=== PATIENT | male | born 1950 | race Caucasian/White ===

== ENCOUNTER 2018-08-10 14:11 | Inpatient (IN) | payer OTHER, SELFPAY ==
[2018-08-10] VITALS (15 sets, daily range): BP systolic 142–167; BP diastolic 60–125; PULSE 115–121; RESP 14–22; TEMP 37.2–37.7; O2SAT 88–99; BMI 26.4
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
[2018-08-10 14:20] LABS: Add Manual Diff / Slide Review NO; Basophils Absolute Auto 0 /uL (0-100); Basophils Percent Auto 0.4 % (0-2); Eosinophils Absolute Auto 0 /uL (0-450); Hematocrit 45.2 % (41-53); Hemoglobin 15.2 g/dL (13.5-17.5); Lymphocytes Absolute Auto 1800 /uL (1100-4500); Lymphocytes Percent Auto 14.9 % (25-40); Mean Corpuscular HGB Conc 33.5 % (30-36); Mean Corpuscular Volume 95.4 fL (80-100); Monocytes Absolute Auto 1200 /uL (0-900); Monocytes Percent Auto 9.9 % (3-14); Neutrophils Absolute Auto 9200 /uL (1500-7000); Neutrophils Percent Auto 74.8 % (50-75); Platelet Count 247 X10^3/uL (150-400); Red Blood Cell Count 4.74 X10^6/uL (4.5-5.9); Red Cell Distribution Width 14.3 % (11.6-14.8); White Blood Cell Count 12.3 X10^3/uL (4.5-11.0)
--- NOTE | 2018-08-10 14:20 | DI.CT.S_ITS ---
PROCEDURE: CT HEAD/BRAIN WO CON INDICATIONS: altered mental status, found in chair TECHNIQUE: Noncontrast 4.5 mm thick angled axial sections acquired from the foramen magnum to the vertex, with coronal and sagittal reformats. For radiation dose reduction, the following was used: automated exposure control, adjustment of mA and/or kV according to patient size. COMPARISON: None. FINDINGS: Image quality: Partially degraded by motion artifact. CSF spaces: Basal cisterns are patent. No extra-axial fluid collections. The ventricles are symmetric in size and shape. Brain: No intracranial bleeds or masses. There is cerebral volume loss for age, with resultant ventricular and sulcal prominence. There are periventricular and deep white matter chronic small vessel ischemic changes. There is intracranial internal carotid artery atherosclerosis. Skull and face: Calvarium and visualized facial bones appear intact, without suspicious lesions. Limited evaluation of the right mandibular condyle secondary to motion artifact. Sinuses: Visualized sinuses and mastoids are clear. IMPRESSION: No acute intracranial abnormality. Dictated by: Jeri Appiah M.D. on 08/10/2018 at 14:21 Approved by: Jeri Appiah M.D. on 08/10/2018 at 14:23
--- NOTE | 2018-08-10 14:20 | DI.RAD.S_ITS ---
PROCEDURE: XR CHEST 1V INDICATIONS: altered mental status TECHNIQUE: One view of the chest was acquired. COMPARISON: None. FINDINGS: Surgical changes and devices: Status post right shoulder arthroplasty. Lungs and pleura: Minimal patchy right basilar opacities and likely right lower lung zone subsegmental atelectasis versus scarring. No focal consolidation. No pleural effusion or pneumothorax identified. Mediastinum: Mediastinal contours appear normal. Heart size is normal. Bones and chest wall: No suspicious bony lesions. Overlying soft tissues appear unremarkable. IMPRESSION: Minimal patchy right basilar opacities likely representing atelectasis. Early developing airspace disease/aspiration may have a similar appearance. Dictated by: Castillo Jo M.D. on 08/10/2018 at 14:39 Approved by: Castillo Jo M.D. on 08/10/2018 at 14:43
[2018-08-10 14:27] LABS: INR 1.1 (0.9-1.3); Prothrombin Time 12.2 SECONDS (10.1-12.7)
[2018-08-10 14:30] LABS: PTT Partial Thromboplastin Tim 29 SECONDS (26.4-36.2)
[2018-08-10 14:31] LABS: Alanine Aminotransferase 8 IU/L (21-72); Albumin 4.8 g/dL (3.5-5.0); Albumin Globulin Ratio 1.3 (1.0-2.8); Alkaline Phosphatase 95 U/L (38-126); Aspartate Aminotransferase 30 IU/L (17-59); BUN Creatinine Ratio 36.3 (6-22); Bilirubin Total 0.8 mg/dL (0.2-1.3); Blood Urea Nitrogen 29 mg/dL (9-20); Calcium 10.4 mg/dL (8.4-10.2); Carbon Dioxide 25 mmol/L (22-32); Chloride 98 mmol/L (98-107); Estimated Glomerular Filt Rate > 60.0 mL/min (>60); Globulin 3.8 g/dL (1.7-4.1); Glucose 207 mg/dL (80-110); HEMOLYSIS 16 (0-50); Potassium 4.4 mmol/L (3.4-5.1); Sodium 137 mmol/L (137-145); Total Protein 8.6 g/dL (6.3-8.2)
[2018-08-10 14:36] LABS: Urine Amphetamines Negative (Negative); Urine Barbiturates Negative (Negative); Urine Benzodiazepines Negative (Negative); Urine Cocaine Negative (Negative); Urine MDMA Negative (Negative); Urine Methadone Negative (Negative); Urine Methamphetamines Negative (Negative); Urine Morphine/Opi cutoff 2000 Negative (Negative); Urine Oxycodone Negative (Negative); Urine Phencyclidine Negative (Negative); Urine Tetrahydrocannabinol Positive (Negative); Urine Tricyclic Antidepressant Negative (Negative)
[2018-08-10 14:43] LABS: Troponin I < 0.012 ng/mL (0.01-0.034)
[2018-08-10 14:45] LABS: Bacteria Urine None Seen; RBC Urine None Seen (0-5/HPF); WBC Urine None Seen (0-5/HPF)
[2018-08-10 14:47] LABS: Appearance Urine UA SL CLOUDY; Bilirubin Urine UA NEGATIVE (NEGATIVE); Color Urine UA YELLOW; Glucose Urine UA NEGATIVE (Negative); Ketones Urine UA NEGATIVE (NEGATIVE); Leukocyte Esterase Urine UA NEGATIVE (NEGATIVE); Nitrite Urine UA NEGATIVE (Negative); Occult Blood Urine UA TRACE-LYSED (Negative); Protein Urine UA TRACE (Negative); Specific Gravity Urine UA 1.025 (1.000-1.035); Urobilinogen Urine UA 0.2 E.U./dL (0.2)
[2018-08-10 14:56] LABS: Acetaminophen < 10 ug/mL (10-30); Salicylate < 1.0 mg/dL (<20)
[2018-08-10 14:56] LABS: Culture Indicated Urine Cult Not Indicated; Urine Comments Microscopic Normal
[2018-08-10] MEDS: SODIUM CHLORIDE 0.9% 1,000 ML 150 ML IV ×2 (14:58→19:36)
[2018-08-10 15:19] LABS: Ethanol (ETOH) < 10 mg/dL
[2018-08-10 15:54] LABS: Lactate (Lactic Acid) 1.3 mmol/L (0.7-2.1)
--- NOTE | 2018-08-10 16:00 | PC.NURSE ---
On arrival pt nonverbal but yells with movement. Pt also noted to have bilateral foot drop.
[2018-08-10 16:10] LABS: Creatine Kinase 349 U/L (55-170)
--- NOTE | 2018-08-10 16:13 | PC.NURSE ---
SI assesment done since pt is now verbal. Pt stated yes to thoughts of harming yourself or others when clarifying, pt stated that he did have thoughts of harming himself when this occurred but he does not now have those thoughts.
[2018-08-10 16:25] LABS: CKMB % Relative Index 0.5 % (1.5-5.0); Creatine Kinase MB 1.61 ng/mL (<2.37)
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
--- NOTE | 2018-08-10 17:18 | DI.US.S_ITS ---
PROCEDURE: US PERIPH VENOUS UP EXTREM FLOR INDICATIONS: QUESTION DEEP VEIN THROMBOSIS, SITTING IN CHAIR X SEVERAL DA TECHNIQUE: Real-time imaging, as well as color and pulse Doppler interrogation, was performed of both upper extremity deep veins from the inferior neck to the antecubital fossa. COMPARISON: None. FINDINGS: Right: The internal jugular veins, visualized portions of the subclavian veins, axillary veins, and brachial veins are free of intraluminal thrombus. Where physically possible, the veins are normally compressible. Color and pulse Doppler demonstrate normal intraluminal flow, with expected phasicity and pulsatility. Additional scanning of the cephalic and basilic veins of the superficial system demonstrate normal compressibility, without thrombus. Left: The internal jugular veins, visualized portions of the subclavian veins, axillary veins, and brachial veins are free of intraluminal thrombus. Where physically possible, the veins are normally compressible. Color and pulse Doppler demonstrate normal intraluminal flow, with expected phasicity and pulsatility. There are eccentric filling defects compatible with nonocclusive thrombus, likely chronic, involving the superficial vessels in the left antecubital region. IMPRESSION: 1. Nonocclusive eccentric filling defects likely representing chronic thrombus within superficial veins in the left antecubital region compatible with superficial thrombophlebitis. 2. No definite evidence of deep venous thrombosis in the right or left upper extremity. Dictated by: Bronson Chatman M.D. on 08/10/2018 at 19:26 Approved by: Bronson Chatman M.D. on 08/10/2018 at 19:29
[2018-08-10] MEDS: CLINDAMYCIN 600 MG/50 ML PIGGYBACK 50 MG IV (17:23)
--- NOTE | 2018-08-10 18:54 | DI.US.S_ITS ---
PROCEDURE: US PERIPH VENOUS LOW EXTREM BI INDICATIONS: DEEP VEIN THROMBOSIS TECHNIQUE: Real-time imaging, as well as color and pulse Doppler interrogation, were performed of the deep veins of both legs from the inguinal ligament to the popliteal fossa. COMPARISON: None. FINDINGS: Right: The common femoral, femoral and popliteal veins are normally compressible, and free of intraluminal thrombus. Color and pulse Doppler demonstrate normal phasic intravascular flow. There is normal augmentation response to distal compression maneuver. Left: The common femoral, femoral and popliteal veins are normally compressible, and free of intraluminal thrombus. Color and pulse Doppler demonstrate normal phasic intravascular flow. There is normal augmentation response to distal compression maneuver. IMPRESSION: 1. No evidence of deep venous thrombosis in the right or left lower extremity. Dictated by: Bronson Chatman M.D. on 08/10/2018 at 20:26 Approved by: Bronson Chatman M.D. on 08/10/2018 at 20:27
[2018-08-10] MEDS: ENOXAPARIN 100 MG/ML SYRINGE 85 MG SUBCUT (19:36)
[2018-08-10 20:29] LABS: Magnesium 1.8 mg/dL (1.6-2.3)
--- NOTE | 2018-08-10 20:30 | PM.HP.1 ---
History of Present Illness Date Patient Seen: 08/10/18 Time Patient Seen: 19:41 Chief complaint: decreased LOC Narrative: Mr. Teddy Rico is a 68-year-old male with history significant for hypertension, hyperlipidemia, diabetes, prostate cancer, spinal stenosis with neuropathy, asthma, long-term opiate use and prior suicide attempt who presents to the ER via EMS with altered mental status. The patient was found seated in a chair altered after not being seen or heard from for days and will defer check was requested. It was reported through the emergency department that a note was found leaving although his belongings to his ex-. During encounter the patient admits to an estimated 30 Soma and 12 buprenorphine tablets. He does admit to attempted suicide and is aware of his current surroundings though it history is stools scattered with impaired recall. The patient remains confused with difficultty recalling information or events. It is estimated that the overdose occurred 3 days ago. The patient also had sources history of alcohol approximately 1 qt per day and denies ingestion of other substances including Tylenol or aspirin. By history the patient has had a prior suicidal attempt by carbon monoxide poisoning. At present he complains of total body aches but denies headaches or dizziness and has no fevers or chills. He denies chest pain or pain on deep inspiration and no palpitations. Denies shortness of breath or cough. Has no abdominal pain nausea vomiting. Upon arrival in the ER the patient has low-grade fever 99.2, tachycardic at 1:18 a.m., hypertensive 157/87, respiratory rate of 22 with a room air SaO2 oxygen saturation of 88%. patient had a chest x-ray taken which show some right basilar patchy infiltrates consistent with atelectasis and had CT head which showed no acute intracranial processes. The patient's tox screen is only positive for cannabis. On laboratory studies has a mildly elevated white count at 12.3 with a hemoglobin of 15.2 and hematocrit of 45.2 and platelets of 247. his electrolytes are within normal limits and has a elevated BUN at 29 and a creatinine of 0.8 with a BUN creatinine ratio 36.3:1. He has a nonfasting glucose of 207. His CK is elevated at 349 and a CK-MB at 1.61. His troponin is negative at less than 0.012 and lactate is negative at 1.3. his coagulations are within normal limits. He did have ultrasound of the left upper extremity which identifies a DVT. The patient is admitted to the hospital for suicidal ideation, overdose, acute respiratory failure, DVT left arm and severe dehydration. 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 Patient does indicate that his father from stroke and he is unaware of his mother's history. He does relate that his brother had hernia surgery but knows of no other medical problems. Smoking: Patient states that he used to smoke and is not currently but can't state how many years ago he quit. Alcohol: Patient endorses he does drink a qt of alcohol daily. Substance use: Patient denies use of herbal or cannabis products however his tox screen is positive for marijuana. Advanced directives: The patient states he does not have an advanced directive. He presently remains altered and incapable of making sound decisions therefore the patient will be full code at this time until the patient becomes more lucid. He further states that there is nobody that he can designate as a surrogate decision maker. Meds Home Medications Medication Instructions Recorded Confirmed Type buprenorphine HCl 8 mg SUBLINGUAL BID 08/10/18 08/11/18 History Allergies Allergy/AdvReac Type Severity Reaction Status Date / Time No Known Drug Allergies Allergy Verified 08/10/18 18:12 Review of Systems Review of Systems All systems reviewed & are unremarkable except as noted in HPI and below (Impaired memory and recall.) Exam Vital Signs (past 8 hours): - 08/10/18 14:21 08/10/18 14:30 08/10/18 15:00 Temperature 99.2 F Pulse Rate 118 H 119 H 121 H Respiratory Rate 22 18 14 Blood Pressure 157/87 H Blood Pressure [Left Arm] 153/125 H 165/84 H Pulse Oximetry 88 L 98 98 08/10/18 15:45 08/10/18 16:00 08/10/18 16:04 Temperature 99.2 F Pulse Rate 118 H 118 H 118 H Respiratory Rate 16 17 16 Blood Pressure 157/87 H Blood Pressure [Left Arm] 160/83 H 159/60 H Pulse Oximetry 96 97 96 08/10/18 16:15 08/10/18 16:30 08/10/18 16:45 Temperature Pulse Rate 119 H 119 H 121 H Respiratory Rate 16 16 16 Blood Pressure Blood Pressure [Left Arm] 167/88 H 160/83 H Pulse Oximetry 96 95 96 08/10/18 17:00 08/10/18 17:30 08/10/18 18:32 Temperature Pulse Rate 120 H 119 H 117 H Respiratory Rate 15 16 17 Blood Pressure 148/88 H Blood Pressure [Left Arm] 160/82 H 144/81 H Pulse Oximetry 97 95 97 08/10/18 18:50 08/10/18 18:55 Temperature 99 F 99 F Pulse Rate 117 H 117 H Respiratory Rate 20 20 Blood Pressure 142/82 H 142/82 H Blood Pressure [Left Arm] Pulse Oximetry 96 99 Oxygen Delivery Method Nasal Cannula Oxygen Flow Rate 2 Narrative Exam Narrative: GENERAL APPEARANCE: well developed, well nourished, anxious HEAD: Normocephalic, atraumatic, no scalp lesions. EYES: pupils equal, round, reactive to light and accommodation, conjunctivas inflamed and sclera anicteric, extraocular movement intact without nystagmus. EARS: normal external structures, no ear pain NOSE: sinuses non tender to percussion, no rhinorrhea ORAL CAVITY: mucosa dry without lesions or exudate, palate normal, tongue in midline. THROAT: normal, no erythema, no exudate, pharynx normal, uvula midline. NECK/THYROID: neck supple, no jugular venous distention, no carotid bruit, no thyromegaly, trachea midline. LYMPH NODES: no cervical or supraclavicular lymphadenopathy. SKIN: Flushed, warm and dry, no suspicious lesions, no rashes HEART: Tachycardic rate and regular rhythm, S1-S2 without murmur, no rubs or gallops, brisk capillary refill, no edema LUNGS: Breath sounds with bibasilar fine crackles no coarseness or wheezing, no cough present. CHEST: Symmetrical movement, no accessory muscle use, no pain to AP and lateral compression. ABDOMEN: Soft, no distention, no epigastric or abdominal tenderness on palpation, no guarding or peritoneal signs, no organomegaly, no flank tenderness, active bowel tones. BACK: Normal curvature, nontender to palpation EXTREMITIES: Pain with range of motion all extremities, increased pain left axilla with distal erythema and a mild edema, no extremity deformities or joint effusions. NEUROLOGIC: AAO x4, impaired recall, impaired mental focus and concentration,, cranial nerves II-XII grossly intact , motor strength normal upper and lower extremities, numbness to the plantar surface bilateral feet, Hearing grossly normal to speech. PSYCH: alert, impaired cognition, anxious, remorseful-worried about what his father will think. Objective Labs Result Diagrams: 08/10/18 13:50 08/10/18 13:50 Labs: Laboratory Results - last 24 hr 08/10/18 08/10/18 08/10/18 13:30 13:50 13:50 WBC 12.3 H RBC 4.74 Hgb 15.2 Hct 45.2 MCV 95.4 MCH 32.0 MCHC 33.5 RDW 14.3 Plt Count 247 Neut % (Auto) 74.8 Lymph % (Auto) 14.9 L Cors[place] % (Auto) 9.9 Eos % (Auto) 0.0 L Baso % (Auto) 0.4 Neut # (Auto) 9200 H Lymph # (Auto) 1800 [place] # (Auto) 1200 H Eos # (Auto) 0 Baso # (Auto) 0 PT 12.2 INR 1.1 APTT 29 Sodium Potassium Chloride Carbon Dioxide BUN Creatinine Estimated GFR BUN/Creatinine Ratio Glucose Lactate Calcium Magnesium Total Bilirubin AST ALT Alkaline Phosphatase Total Creatine Kinase CK-MB (CK-2) CK-MB (CK-2) Rel Index Troponin I Total Protein Albumin Globulin Albumin/Globulin Ratio Urine Color Urine Appearance Urine pH Ur Specific [place] Urine Protein Urine Glucose (UA) Urine Ketones Urine Occult Blood Urine Nitrate Urine Bilirubin Urine Urobilinogen Ur Leukocyte Esterase Urine RBC Urine WBC Urine Bacteria Ur Culture Indicated? Micro UA Comment Salicylates Urine Opiates Screen Ur Oxycodone Screen Urine Methadone Screen Acetaminophen Ur Barbiturates Screen U Tricyclic Antidepress Ur Phencyclidine Scrn Ur Amphetamines Screen U Methamphetamines Scrn Ur MDMA Scrn (Ecstasy) U Benzodiazepines Scrn Urine Cocaine Screen U Marijuana (THC) Screen Ethyl Alcohol < 10 08/10/18 08/10/18 08/10/18 13:50 13:50 13:50 WBC RBC Hgb Hct MCV MCH MCHC RDW Plt Count Neut % (Auto) Lymph % (Auto) [place] % (Auto) Eos % (Auto) Baso % (Auto) Neut # (Auto) Lymph # (Auto) [place] # (Auto) Eos # (Auto) Baso # (Auto) PT INR APTT Sodium 137 Potassium 4.4 Chloride 98 Carbon Dioxide 25 BUN 29 H Creatinine 0.80 Estimated GFR > 60.0 BUN/Creatinine Ratio 36.3 H Glucose 207 H Lactate Calcium 10.4 H Magnesium Total Bilirubin 0.8 AST 30 ALT 8 L Alkaline Phosphatase 95 Total Creatine Kinase 349 H CK-MB (CK-2) 1.61 CK-MB (CK-2) Rel Index 0.5 L Troponin I < 0.012 Total Protein 8.6 H Albumin 4.8 Globulin 3.8 Albumin/Globulin Ratio 1.3 Urine Color Urine Appearance Urine pH Ur Specific [place] Urine Protein Urine Glucose (UA) Urine Ketones Urine Occult Blood Urine Nitrate Urine Bilirubin Urine Urobilinogen Ur Leukocyte Esterase Urine RBC Urine WBC Urine Bacteria Ur Culture Indicated? Micro UA Comment Salicylates < 1.0 Urine Opiates Screen Ur Oxycodone Screen Urine Methadone Screen Acetaminophen < 10 L Ur Barbiturates Screen U Tricyclic Antidepress Ur Phencyclidine Scrn Ur Amphetamines Screen U Methamphetamines Scrn Ur MDMA Scrn (Ecstasy) U Benzodiazepines Scrn Urine Cocaine Screen U Marijuana (THC) Screen Ethyl Alcohol 08/10/18 08/10/18 08/10/18 14:24 14:24 15:35 WBC RBC Hgb Hct MCV MCH MCHC RDW Plt Count Neut % (Auto) Lymph % (Auto) [place] % (Auto) Eos % (Auto) Baso % (Auto) Neut # (Auto) Lymph # (Auto) [place] # (Auto) Eos # (Auto) Baso # (Auto) PT INR APTT Sodium Potassium Chloride Carbon Dioxide BUN Creatinine Estimated GFR BUN/Creatinine Ratio Glucose Lactate 1.3 Calcium Magnesium Total Bilirubin AST ALT Alkaline Phosphatase Total Creatine Kinase CK-MB (CK-2) CK-MB (CK-2) Rel Index Troponin I Total Protein Albumin Globulin Albumin/Globulin Ratio Urine Color Yellow Urine Appearance Sl cloudy Urine pH 5.0 Ur Specific [place] 1.025 Urine Protein Trace H Urine Glucose (UA) Negative Urine Ketones Negative Urine Occult Blood Trace-lysed Urine Nitrate Negative Urine Bilirubin Negative Urine Urobilinogen 0.2 Ur Leukocyte Esterase Negative Urine RBC None seen Urine WBC None seen Urine Bacteria None seen Ur Culture Indicated? Cult not indicated Micro UA Comment Microscopic normal Salicylates Urine Opiates Screen Negative Ur Oxycodone Screen Negative Urine Methadone Screen Negative Acetaminophen Ur Barbiturates Screen Negative U Tricyclic Antidepress Negative Ur Phencyclidine Scrn Negative Ur Amphetamines Screen Negative U Methamphetamines Scrn Negative Ur MDMA Scrn (Ecstasy) Negative U Benzodiazepines Scrn Negative Urine Cocaine Screen Negative U Marijuana (THC) Screen Positive H Ethyl Alcohol 08/10/18 15:35 WBC RBC Hgb Hct MCV MCH MCHC RDW Plt Count Neut % (Auto) Lymph % (Auto) [place] % (Auto) Eos % (Auto) Baso % (Auto) Neut # (Auto) Lymph # (Auto) [place] # (Auto) Eos # (Auto) Baso # (Auto) PT INR APTT Sodium Potassium Chloride Carbon Dioxide BUN Creatinine Estimated GFR BUN/Creatinine Ratio Glucose Lactate Calcium Magnesium 1.8 Total Bilirubin AST ALT Alkaline Phosphatase Total Creatine Kinase CK-MB (CK-2) CK-MB (CK-2) Rel Index Troponin I Total Protein Albumin Globulin Albumin/Globulin Ratio Urine Color Urine Appearance Urine pH Ur Specific [place] Urine Protein Urine Glucose (UA) Urine Ketones Urine Occult Blood Urine Nitrate Urine Bilirubin Urine Urobilinogen Ur Leukocyte Esterase Urine RBC Urine WBC Urine Bacteria Ur Culture Indicated? Micro UA Comment Salicylates Urine Opiates Screen Ur Oxycodone Screen Urine Methadone Screen Acetaminophen Ur Barbiturates Screen U Tricyclic Antidepress Ur Phencyclidine Scrn Ur Amphetamines Screen U Methamphetamines Scrn Ur MDMA Scrn (Ecstasy) U Benzodiazepines Scrn Urine Cocaine Screen U Marijuana (THC) Screen Ethyl Alcohol Assessment & Plan Assessment & Plan narrative: The patient is admitted to the hospital and will be in the ICU for one-to-one observation related to attempted suicide with altered mental status and severe dehydration. 1. Attempted suicide by overdose. -patient in is seen in the ER following being found at home altered during a welfare check. Patient with previous suicidal attempt. -patient endorses taking 12 buprenophrine and 30 carisopodol but can not recall the date or how long ago he took the medication. -it is reported by ER personnel the patient left note leaving his belongings to his ex-, the note is not available for review. -it is believed that the ingestion was 3 days ago as the patient has not taken any other medications in his pill box for 3 days per police. -patient is placed on one-to-one observation -he remains cooperative and follows directions. -mental health to evaluate when medically clear. 2. Intentional medication overdose, present on admission -the patient reports overdosing on 12 of buprenorphine and 30 tablets of carisoprodol, medication bottles are not available. -patient is altered with impaired memory and appears to have been immobile for 3 days. CK is 349. -patient remains cooperative and tachycardic. Will treat symptomaticly. -mental health to evaluate a medical clear. 3. Acute, severe dehydration, present on admission. -patient appears to have been immobile in chair for 3 days, patient smells of urine, BUN creatinine ratio is 36.3:. 1 -patient has mildly elevated WBCs at 12.3 normal H&H. Sodium is 137 potassium is 4.4. BUN is 29 and creatinine is 0.8 glucose is 207. Liver functions within normal limits. -normal saline 150 cc/hour, will monitor for adequate urine output. -diabetic diet moderate carbohydrates, clear liquid. 4. Type 2 diabetes, presumed uncontrolled. -glucose is elevated 207 on initial labs. The patient reports no diabetic medications. -fingerstick glucose a.c. and HS -correctional insulin low-dose range. -will obtain hemoglobin A1c. 5. Long-term use of opiates, presumed stable. -patient with chronic back pain status post lumbar fusion of L3-4 and 5. -neuropathy bilateral feet. -the patient has been taking buprenorphine 8 mg sublingually. His last prescription provided for 60 doses for 30 day supply filled on 07/13/2018. -will hold all narcotics this time until patient's mentation clears. Will treat pain as a presents. 6. Chronic alcohol abuse, present on admission. -patient endorses drinking 1 qt of alcohol daily. -patient is placed on [facility] assessment protocol -lorazepam per [facility] protocol. 7. Acute hypoxic respiratory failure, present on arrival. -patient is tachypneic with a respiratory rate of 22 and oxygen saturation of 88% upon arrival to the ER, improved 2 L of oxygen to 98%, P/F ratio is 400. -medical record identifies a history of asthma, not specified as to severity or persistence of symptoms. -the patient has no complaints shortness of breath or wheezing, fine bibasilar crackles on auscultation, he is afebrile with minimally elevated white blood cell count at 12.3. -chest x-ray identifies right basilar patchiness consistent with atelectasis. -patient does not appear to have pneumonia, will obtain a procalcitonin and monitor white blood cell count. 8. Acute on chronic nonocclusive superficial thrombus left antecubital vein, present on admission -patient with prolonged down time high risk for DVT with swelling left arm -ultrasound obtained finding superficial nonocclusive thrombus left antecubital vein acute on chronic thrombophlebitis. -CHADS-VASC2 score is 3 and HAS-BLED score is 2, therapeutic Lovenox 1 milligram/kilogram, 85 mg twice daily. -Protonix 40 mg IV daily The patient admitted to the hospital related to the severity of symptoms, risk for complications and adverse events. The patient is admitted as an inpatient with expected length of stay to be greater than 2 midnights. Time Spent With Patient Time with patient: 25 - 35 minutes Scores GCS Halima coma scale eye opening: Spontaneous Dunlevy coma scale verbal response: Orientated Dunlevy coma scale motor response: Obey commands Halima coma scale total score: 15 CHADS-VASc Congestive heart failure: no Hypertension: yes Age 75 years or older: no Diabetes mellitus: yes Stroke, TIA, or TE: no Vascular disease: no Age 65 to 74 years: yes Sex category (female): Male CHADS-VASc Score: 3
[2018-08-10] MEDS: INSULIN ASPART 100 UNIT/ML INSULN PEN SUBCUT (21:32)
--- NOTE | 2018-08-10 23:39 | PC.NURSE ---
justin clay Agrees to no harm contract while in hospital. pt did not want to talk about why he tried to commit suicide. Poor mobility to extremities due to pain, joint stiffness. Pt calm and cooperative. Hesitant about any moving around. Mouth is dry. Tolerating clear liquids. Sitter at bedside for safety.
[2018-08-11] VITALS (8 sets, daily range): BP systolic 115–139; BP diastolic 66–81; PULSE 98–110; RESP 17–20; TEMP 37–37.8; O2SAT 93–97; BMI 27.2
[2018-08-11] MEDS: SODIUM CHLORIDE 0.9% 1,000 ML 150 ML IV ×3 (02:30→15:18)
[2018-08-11 05:56] LABS: Add Manual Diff / Slide Review NO; Basophils Absolute Auto 0 /uL (0-100); Basophils Percent Auto 0.2 % (0-2); Eosinophils Absolute Auto 0 /uL (0-450); Eosinophils Percent Auto 0.2 % (2-4); Hematocrit 37.7 % (41-53); Hemoglobin 12.5 g/dL (13.5-17.5); Lymphocytes Absolute Auto 900 /uL (1100-4500); Lymphocytes Percent Auto 9.1 % (25-40); Mean Corpuscular HGB Conc 33.2 % (30-36); Mean Corpuscular Hemoglobin 31.6 PG (26-34); Mean Corpuscular Volume 95.3 fL (80-100); Monocytes Absolute Auto 1100 /uL (0-900); Monocytes Percent Auto 11.2 % (3-14); Neutrophils Absolute Auto 8000 /uL (1500-7000); Neutrophils Percent Auto 79.3 % (50-75); Platelet Count 177 X10^3/uL (150-400); Red Blood Cell Count 3.96 X10^6/uL (4.5-5.9); Red Cell Distribution Width 13.8 % (11.6-14.8)
[2018-08-11 05:57] LABS: Blood Urea Nitrogen 15 mg/dL (9-20); Calcium 8.9 mg/dL (8.4-10.2); Carbon Dioxide 28 mmol/L (22-32); Chloride 96 mmol/L (98-107); Estimated Glomerular Filt Rate > 60.0 mL/min (>60); Glucose 151 mg/dL (80-110); HEMOLYSIS < 15 (0-50); Potassium 3.9 mmol/L (3.4-5.1); Sodium 130 mmol/L (137-145)
[2018-08-11 06:16] LABS: Hemoglobin A1C% w Est Avg Glu 6.9 % (4.0-6.0)
[2018-08-11 06:57] LABS: Procalcitonin 0.08 ng/mL (<0.5)
[2018-08-11] MEDS: INSULIN ASPART 100 UNIT/ML INSULN PEN SUBCUT ×3 (08:31→16:41)
[2018-08-11] MEDS: ENOXAPARIN 40 MG/0.4 ML SYRINGE SUBCUT (08:33)
[2018-08-11] MEDS: ACETAMINOPHEN 325 MG TABLET 650 MG PO ×2 (08:34→16:06)
[2018-08-11] MEDS: PANTOPRAZOLE 40 MG VIAL IV (08:34)
--- NOTE | 2018-08-11 10:16 | PC.NURSE ---
Dayshift Note: Pt checked on and assessed. Pt received sitting up in bed, eyes closed but easily awoken. Pt oriented to self, situation, month, year and day of month, but states [facility] when asked where he is. Pt is easily reoriented. Pt's main complaint is chronic back pain, states that pain is 8/10 and a constant dull throbbing. No narcotics currently ordered, given tylenol. Dr. Gonzalez notified of pain management issues. Records received from pt's PCP and given to Dr. Gonzalez. Call light in reach, 1:1 sitter, seizure precautions. THEODORA 5. Will continue to monitor, notify MD with changes.
--- NOTE | 2018-08-11 10:20 | CM.SWNOTE ---
DIGESTER CAPPER Note: Reviewed chart. Received verbal referral from Dr. Gonzalez requesting DIGESTER CAPPER evaluation for mental health needs. Patient is a 68yr old male brought to [facility] via EMS with altered mental status. Apparently, patient drank alcohol, took soma, and buprenorphine in hopes to end his life. It was reported that suicide note left however, this DIGESTER CAPPER did not see it. Met with patient explained DIGESTER CAPPER role. Patient appears alert and oriented time of visit. Patient confirms that he wants to end my life. Patient reports last suicide attempt was approximately 30yrs ago. Patient [facility] in [facility] in [place]. Patient reports recent stressors that have contributed to his depression are that he recently got DUI. Patient admits to drinking wine on regular basis. Patient also with h/o chronic back pain. Currently patient treated by Dr. Rainer Hennessy. Patient has active pain contract in place. Patient reports that he has good relationship with PCP but does not have many friends. He does have x- Mitzi Rico ph# [phone] whom he reports is aware of situation and coming to visit. Patient denies enrollment in any mental health or alcohol programs. Patient indicates that all medications are prescribed by Dr. Hennessy. DIGESTER CAPPER requested medication sheet be faxed to [facility] for review. Dr. Gonzalez also provided with records and name/number of PCP. She plans to touch base with Dr. Hennessy this AM. In the meantime, patient appears to be at high risk for re-attempt of suicide. Patient reports that he continues to feel hopeless. His current legal troubles, drinking, and pain have all contributed to his feelings of hopelessness. Patient aware and agreeable for short stay at inpatient psychiatric facility. DIGESTER CAPPER placed call to [facility] and they will review for admit. Asked MARIAM/Livia to fax clinicals. P: Pending. MADELYN Chiu
--- NOTE | 2018-08-11 11:40 | PT.IPTN ---
Current Diagnoses Acute embolism and thrombosis of unspecified deep veins of unspecified lower extremity (08/10/18) Physical Therapy Treatment Note M3 PT-IP Subjective Start: 08/11/18 11:38 Freq: NEEDED Status: Active Protocol: Document 08/11/18 11:39 AB (Rec: 08/11/18 11:40 AB [id number]) Subjective Physical Therapy Visit Type Notes per nurse: pt not ready for PT this morning. will f/u in the afternoon.
[2018-08-11] MEDS: BUPRENORPHINE 8 MG 1 EACH PO ×2 (12:38→21:04)
[2018-08-11] MEDS: ALBUTEROL 2.5 MG/3 ML NEB (ADULT) INH (13:04)
--- NOTE | 2018-08-11 14:45 | PT.IIE ---
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 Social History Household Members none Living Arrangements Mobile home Number of Floors (Floors) One Floor Number of Stairs To Enter/Railing? pt stated that he has 3 steps to enter with L handle on the side of the door Home Environment Tub/Shower Additional Social History Comment has a low toilet pt has an 85# dog M2 PT-IP Current Condition Start: 08/11/18 11:38 Freq: NEEDED Status: Active Protocol: Document 08/11/18 14:45 AB (Rec: 08/11/18 17:39 AB [id number]) Physical Therapy Current Condition Current Condition Evaluation Date 08/11/18 Treatment Diagnosis overdose; weakness; difficulty in walking Onset Date 08/10/18 Precautions Other Precautions Falls M3 PT-IP Subjective Start: 08/11/18 11:38 Freq: NEEDED Status: Active Protocol: Document 08/11/18 14:45 AB (Rec: 08/11/18 17:39 AB [id number]) Subjective Physical Therapy Visit Type Type Initial Evaluation Visit Start Time 14:45 Visit Stop Time 15:37 Total Visit Minutes 52 Number of SKID STRAPPER Visits 0 Physical Therapy Visit Comments Patient Comments pt agreeable to do PT Therapy Pain Assessment Pain When Pain Assessed At Rest Pain Present Pain Present Pain Reported Location Back Intensity 8 Scale Used Numeric (1 - 10) Pain Management Techniques Re-positioning Timing of Activity with Medications M4 PT-IP Mobility and Gait Start: 08/11/18 11:38 Freq: NEEDED Status: Active Protocol: Document 08/11/18 14:45 AB (Rec: 08/11/18 17:39 AB [id number]) PT-Bed Mobility Assessment Supine to Sit Supine to Sit Maximum Assistance 2 Person Assistance Scooting Scooting to Edge of Bed Maximum Assistance PT-Transfer Assessment Sit to and From Stand Sit to and from Stand Maximum Assistance 2 Person Assistance Equipment Transfer Assistive Device Front Wheeled Walker Orthotic/Prosthetic Devices or Brace: No Transfers Transfer Destination Chair Transfer Technique Stand Step Pivot Transfer Ability Level of Assist Maximum Assistance 2 Person Assistance Use of Upper Extremities PT-Balance Assessment Sitting Balance and Reactions Static Sitting Balance Ability Good Dynamic Sitting Balance Ability Fair Standing Balance and Reactions Static Standing Balance Ability Poor Dynamic Standing Balance Ability Poor Device Used FWW M5 PT-IP Objective Assessments Start: 08/11/18 11:38 Freq: NEEDED Status: Active Protocol: Document 08/11/18 14:45 AB (Rec: 08/11/18 17:39 AB [id number]) Orientation Orientation/Cognition Level of Alertness Confusional State Orientation Name Safety Awareness Decreased Safety Awareness Memory Description Short Term Impaired Senior Care Impaired Gross Range of Motion Lower Extremity ROM Assessment Within Functional Limits Strength Lower Extremity Strength Assessment Bilaterally Impaired Comments Strength Comments BLE: 3+/5 M6 PT-IP Treatment Start: 08/11/18 11:38 Freq: NEEDED Status: Active Protocol: Document 08/11/18 14:45 AB (Rec: 08/11/18 17:39 AB [id number]) Physical Therapy Treatment Education Education Provided Safety M7 PT-IP Assessment and Plan Start: 08/11/18 11:38 Freq: NEEDED Status: Active Protocol: Document 08/11/18 14:45 AB (Rec: 08/11/18 17:39 AB [id number]) PT Summary Assessment and Plan Potential Rehabilitation Potential Fair Status of Condition at Evaluation Evolving Summary Impairments Pain ROM Strength Balance Coordination Sensation Tone Cognition Bed Mobility Transfers Gait Activity Tolerance Assessment Summary pt requiring 2 person max A with all mobilities and unable to ambulate at this time. pt will require SNF rehab to improve strength and increase function. Goals Bed Mobility Goal Contact Guard Assistance Transfer Goal Contact Guard Assistance Front Wheeled Walker Gait Goal Contact Guard Assistance Front Wheel Walker Gait Distance 50 Days to Meet Goals 10 Frequency of Treatment Frequency Of Treatment Once a Day Treatment Plan Physical Therapy Treatment Plan Bed Mobility Training Transfer Training Gait Training Therapeutic Exercise Balance Retraining Discharge Planning Hot or Cold Pack Neuromuscular Re-ed Coordination Retraining Manual Therapy Other Recommendations and Next Treatment ambulation Focus Recommendations To Nursing Amount of Assist Needed 2 Person Assist Discharge Recommendations PT Discharge Recommendations SNF Rehab Equipment Needed for Home Before FWW if pt goes home Discharge
--- NOTE | 2018-08-11 15:40 | CM.DPC ---
DCP/continued: Received call back from [facility]. They are report that they are unable to accommodate because of patient's high acuity. Spoke with Dr. Gonzalez and she confirms that patient is not medically stable today. Patient's regular medication had to be ordered from our pharmacy. Therefore, patient complained most of the day of pain. It's also unclear how mobile patient currently is. In order for him to go to inpatient psychiatry he needs to be I in ADL's. PT/OT evaluations are pending. Hopeful once patient is truly medically stable CM team will be able to locate inpatient psychiatric facility if patient remains high risk for suicide. If mental health improves may need to consider outpatient plan. As of right now patient most appropriate for inpatient psychiatric care. Dr. Gonzalez aware of above. EKG ordered today. Patricia bran to review once patient medically stable and I in ADL's. Patient's brother/Chuy came to [facility] to visit today. Unfortunately, [employer] missed him when he was here. RN reports that brother wants patient to go to inpatient psychiatric facility. P: Pending. Hopeful patient will improve enough medically to go to inpatient psychiatric facility for suicide attempt and high risk for repeat. If patient remains hospitalized for over 48hrs psychiatric consult might be helpful to assist with medication recommendations. MADELYN Chiu
--- NOTE | 2018-08-11 16:15 | PM.PN.1 ---
Subjective Date Patient Seen: 08/11/18 Interval history: Narciso Rico is a 68-year-old male with a past medical history significant for hypertension, hyperlipidemia, diabetes mellitus type 2, non-insulin using, prostate cancer, spinal stenosis with neuropathy, asthma, chronic pain with opiate dependence now on Subutex and prior suicide attempt who presented to the ED via EMS for decreased level of consciousness secondary to polysubstance overdose. Interval history: The patient was started on therapeutic Lovenox for reported DVT in left arm to ED physician but after review of report the patient has superficial thrombophlebitis which is likely chronic. The patient is resting in bed and appears mildly uncomfortable. The patient continues experience a significant amount of pain globally likely due to being stationary for 2-3 days. He also endorses headache. He denies shortness of breath, chest pain, abdominal pain, nausea, vomiting, fever, chills, diarrhea or constipation. He is voiding via larry catheter. He has not had a BM yet since admission. He requires 2 person assist and is predominantly in bed. Exam Vital Signs (past 8 hours): - 08/11/18 08:34 08/11/18 12:00 08/11/18 13:10 Temperature 99.1 F 98.6 F Pulse Rate 109 H 109 H Respiratory Rate 17 20 Blood Pressure 139/75 Pulse Oximetry 97 97 08/11/18 15:42 Temperature 100.1 F H Pulse Rate 110 H Respiratory Rate 20 Blood Pressure 137/66 Pulse Oximetry 94 Oxygen Delivery Method Nasal Cannula Oxygen Flow Rate 1 Narrative Exam Narrative: General: Older male lying in bed and in no acute distress, appears mildly uncomfortable and older than stated age, well-developed, well-nourished, irritable and drowsy but otherwise appropriately interactive. HEENT: Normocephalic, atraumatic. External ears without defect. Pupils equal, round, and reactive to light. Anicteric sclerae, moist conjunctivae, and no lid lag. Neck: Supple with full range of motion. No lymphadenopathy or thyromegaly. Cardiovascular: Regular rate and rhythm without murmurs, rubs, or gallops appreciated. Pulmonary: Clear to auscultation bilaterally without crackles, wheezes, or rhonchi. Normal respiratory effort with no use of accessory muscles. Abdomen: Soft, bowel sounds present, nontender, nondistended. No hepatosplenomegaly or masses appreciated. Extremities: No clubbing, cyanosis, or edema. Skin: Normal temperature, turgor, and texture; no rash, ulcers, or subcutaneous nodules appreciated. Neurological: Cranial nerves grossly intact. Psychiatric: Depressed and irritable mood with flat affect. Objective Labs Result Diagrams: 08/12/18 08:42 08/12/18 08:42 Labs: Laboratory Results - last 24 hr 08/10/18 08/10/18 08/10/18 13:50 15:35 19:05 WBC RBC Hgb Hct MCV MCH MCHC RDW Plt Count Neut % (Auto) Lymph % (Auto) [place] % (Auto) Eos % (Auto) Baso % (Auto) Neut # (Auto) Lymph # (Auto) [place] # (Auto) Eos # (Auto) Baso # (Auto) Sodium Potassium Chloride Carbon Dioxide BUN Creatinine Estimated GFR BUN/Creatinine Ratio Glucose Hemoglobin A1c Calcium Magnesium 1.8 Total Creatine Kinase 349 H CK-MB (CK-2) 1.61 CK-MB (CK-2) Rel Index 0.5 L Procalcitonin Nasal Screen MRSA (PCR) Negative for mrsa 08/11/18 08/11/18 08/11/18 04:50 04:50 04:50 WBC 10.0 RBC 3.96 L Hgb 12.5 L Hct 37.7 L MCV 95.3 MCH 31.6 MCHC 33.2 RDW 13.8 Plt Count 177 Neut % (Auto) 79.3 H Lymph % (Auto) 9.1 L [place] % (Auto) 11.2 Eos % (Auto) 0.2 L Baso % (Auto) 0.2 Neut # (Auto) 8000 H Lymph # (Auto) 900 L [place] # (Auto) 1100 H Eos # (Auto) 0 Baso # (Auto) 0 Sodium 130 L Potassium 3.9 Chloride 96 L Carbon Dioxide 28 BUN 15 Creatinine 0.60 L Estimated GFR > 60.0 BUN/Creatinine Ratio 25.0 H Glucose 151 H Hemoglobin A1c Calcium 8.9 Magnesium Total Creatine Kinase CK-MB (CK-2) CK-MB (CK-2) Rel Index Procalcitonin 0.08 Nasal Screen MRSA (PCR) 08/11/18 04:50 WBC RBC Hgb Hct MCV MCH MCHC RDW Plt Count Neut % (Auto) Lymph % (Auto) [place] % (Auto) Eos % (Auto) Baso % (Auto) Neut # (Auto) Lymph # (Auto) [place] # (Auto) Eos # (Auto) Baso # (Auto) Sodium Potassium Chloride Carbon Dioxide BUN Creatinine Estimated GFR BUN/Creatinine Ratio Glucose Hemoglobin A1c 6.9 H Calcium Magnesium Total Creatine Kinase CK-MB (CK-2) CK-MB (CK-2) Rel Index Procalcitonin Nasal Screen MRSA (PCR) Assessment & Plan Assessment & Plan narrative: Narciso Rico is a 68-year-old male with a past medical history significant for hypertension, hyperlipidemia, diabetes mellitus type 2, non-insulin using, prostate cancer, spinal stenosis with neuropathy, asthma, chronic pain with opiate dependence now on Subutex and prior suicide attempt who presented to the ED via EMS for decreased level of consciousness secondary to polysubstance overdose. 1. Attempted suicide by overdose. -Patient found at home altered during a welfare check. Patient has history of previous suicidal attempt. -Patient endorses taking 12 buprenophrine and 30 carisopodol but cannot recall the exact date (08/07 or 08/08) he took the medication. It is believed that the ingestion was 3 days prior to admission as the patient has not taken any other medications in his pill box for 3 days per police. -ED staff reported the patient left note leaving his belongings to his ex-. Note is not available for review. -Continue one-to-one observation. He remains cooperative and follows directions. -[employer] consulted and we appreciate their time in care of the patient. The patient is voluntarily willing to undergo inpatient mental health treatment. 2. Intentional polysubstance overdose, present on admission. Active. -Patient reports overdosing on 12 of buprenorphine and 30 tablets of carisoprodol and taking them with 3 bottles of wine (Ros?). Medication bottles are not available. -Patient is altered with impaired memory and was likely unconscious and immobile in a chair for approximately 3 days. CK is 349. Patient remains cooperative and tachycardic. Continue to treat symptomatically. -Discussed patient and buprenorphine dose with his PCP, Dr. Hennessy, who will continue to treat opiate dependence outpatient and limit amount dispensed and likely add naloxone. Continue buprenorphine 8 mg twice daily (not on formulary and ordered as needed 3 doses at a time). 3. Acute severe dehydration, present on admission. Resolved. -Patient was likely unconscious and immobile in a chair for approximately 3 days. Patient had soiled himself. -Initial BUN/ creatinine ratio is 36:1. -Continued normal saline until adequately hydrated. 4. Acute hypoxemic respiratory failure, present on admission. Resolving. -Patient was mildly tachypneic with a respiratory rate of 22 and oxygen saturation of 88% upon arrival to ED. Improved 2 L of oxygen to 98%, P/F ratio is 400. Patient is asymptomatic. -Medical record identifies a history of asthma, not specified as to severity or persistence of symptoms. -Chest x-ray demonstrated right basilar opacities consistent with atelectasis versus aspiration. Clinically he does not have pneumonia. -Continue respiratory therapy evaluation and treatment. Oxygen saturation goal 88-92%. 5. Non-occlusive superficial thrombus left antecubital vein, possibly chronic, present on admission. Stable. -Patient with prolonged down time and high risk for VTE. 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 Right upper extremity negative for DVT. -Bilateral lower extremity venous Doppler ultrasound negative for DVT. -CHADS-VASC2 score is 3. Patient was initially started on therapeutic Lovenox 85 mg twice daily which has been discontinued. Recommend repeat venous Doppler ultrasound of left upper extremity in 7-10 days. 6. Diabetes mellitus type 2, non-insulin using, present on admission. Stable. -Hemoglobin A1c 6.9%. -Patient was previously treated with metformin. Patient no longer medically treated. -Continue [facility] blood glucose checks and low-dose correctional scale insulin. 7. Chronic back pain with opiate dependence on Subutex now with generalized weakness, present on admission. Stable. -Patient with chronic back pain and bilateral peripheral neuropathy status post lumbar fusion of L3-5. -Patient was likely unconscious and immobile in a chair for approximately 3 days. -Held all narcotics until patient's mentation cleared. -Discussed patient and buprenorphine dose with his PCP, Dr. Hennessy, who will continue to treat opiate dependence outpatient and limit amount dispensed and likely add naloxone. Continue buprenorphine 8 mg twice daily (not on formulary and ordered as needed 3 doses at a time). -Continue physical and occupational therapy evaluation and treatment. 8. Chronic alcohol abuse, present on admission. Active. -Patient has given several different conflicting quantities of alcohol use. -Continue CIWA assessment and protocol including: Lorazepam based on CIWA score, folate, multivitamin, and thiamine. Disposition: The patient is voluntarily willing to undergo inpatient mental health treatment. Patient likely discharge to psychiatric hospital in several days once able to ambulate independently. Quality VTE Deep Vein Thrombosis/Pulmonary Embolism Present on Admission: Yes
[2018-08-11] MEDS: LORazepam 2 MG/ML INJ IV (17:42)
--- NOTE | 2018-08-11 17:46 | OT.IP.EVAL ---
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) Sleep apnea (Acute) Smoker (Acute) Diabetes (Chronic) Surgical History (Last Updated 08/11/18 @ 00:56 by YUN Morton) History of inguinal hernia repair (Acute) History of lumbar fusion (Acute) History of right shoulder replacement (Acute) Occupational Therapy Inpatient Evaluation/Re-Eval M1 PT/OT-IP Prior Functional Status Start: 08/11/18 11:38 Freq: NEEDED Status: Active Protocol: Document 08/11/18 14:45 AB (Rec: 08/11/18 17:39 AB [id number]) Medical Review Prior Functional Status Medical History Reviewed Yes Communication able to make needs known but with confusion Mobility and Gait pt stated that he is modified independent with all mobilities and ambulation without AD. Social History Household Members none Living Arrangements Mobile home Number of Floors (Floors) One Floor Number of Stairs To Enter/Railing? pt stated that he has 3 steps to enter with L handle on the side of the door Home Environment Tub/Shower Additional Social History Comment has a low toilet pt has an 85# dog M1 PT/OT-IP Prior Functional Status Start: 08/11/18 16:41 Freq: NEEDED Status: Active Protocol: Document 08/11/18 16:42 CCC (Rec: 08/11/18 17:44 [facility] [id number]) Medical Review Prior Functional Status Communication Independent. Mobility and Gait Independent with no devices. Activities of Daily Living and IADL's Pt able to do all ADl's, IADl, and care for his malamute dog , Joker. Social History Household Members none Living Arrangements Mobile home Number of Floors (Floors) One Floor Number of Stairs To Enter/Railing? 3 steps and left rail. Home Environment Standard Height Toilet Tub/Shower M2 OT-IP Current Condition Start: 08/11/18 16:41 Freq: Status: Active Protocol: Document 08/11/18 16:42 [facility] (Rec: 08/11/18 17:44 [facility] [id number]) Occupational Therapy Current Condition Current Condition Evaluation Date 08/11/18 Treatment Diagnosis Suicidal ideation/overdose Diagnosis Onset Date 08/10/18 Weight Bearing Status Weight Bearing Status Weight Bear as Tolerated M3 OT- IP Subjective and Pain Start: 08/11/18 16:41 Freq: Status: Active Protocol: Document 08/11/18 16:42 [facility] (Rec: 08/11/18 17:44 [facility] [id number]) OT- Subjective Occupational Therapy Visit Type Type Initial Evaluation Visit Start Time 13:55 Visit Stop Time 16:00 Total Visit Minutes 65 Occupational Therapy Visit Comments Patient Comments Pt cooperative and however feeling slow, weak, and having back pain. OT Pain Assessment Pain When Pain Assessed At Rest Pain Present Pain Present Pain Reported Location Generalized Intensity 8 Scale Used Numeric (1 - 10) M4 OT- IP ADL's Start: 08/11/18 16:41 Freq: Status: Active Protocol: Document 08/11/18 16:42 [facility] (Rec: 08/11/18 17:44 [facility] [id number]) OT EMB-Mrth-Khlffzi Comments OT Self-Feeding Comments Per nursing pt having trouble feeding himself due to weakness and swelling in hands to be able to use the utensils. Pt having difficulty to close right hand . Therefore suggested use of large handled utensils at this time. Nursing called kitchen for the request. OT ADL-Grooming Comments OT Grooming Comments Pt able to bring wash cloth up to his lips. OT ADL-Oral Care Comments Oral Care Comments Pt states already did grooming earlier. OT ADL-Dressing General Eval Lower Body Dressing Ability Maximum Assistance Areas Needing Assistance Socks Comments OT Dressing Comments Pt MAX A for all LB dressing needs at this time. OT ADL-Toileting Comments OT Toileting Comments Pt has cathetar in. OT ADL-Bathing Comments OT Bathing Comments Not ready to do at this time and would need to do sponge bathing. M5 OT- IP IADL's Start: 08/11/18 16:41 Freq: Status: Active Protocol: Document 08/11/18 16:42 [facility] (Rec: 08/11/18 17:44 [facility] [email or web address]) OT-Instrumental Activities of Daily Living Home Safety Awareness Home Safety Comments At this time pt would need assist for all safety, ADl , and IADl needs. Pt 's brother requesting that pt go to inpatient psychiatric facility . M6 OT- IP Functional Cognition Start: 08/11/18 16:41 Freq: Status: Active Protocol: Document 08/11/18 16:42 [facility] (Rec: 08/11/18 17:44 [facility] [id number]) Cognitive Factors Limiting Selfcare Function Cognitive Ability Level of Alertness Alert Drowsy Patient Orientation Name Attention Span Ability Capable of Focused Attention Unable to Sustain Attention Ability to Follow Commands Able to Follow One Step Commands with Increased Time Able to Follow One Step Commands with Repetition Safety Awareness Underestimates Need for Assistance Problem Solving Ability Unable to Identify Errors Needs Assist to Identify Solutions Cognitive Comments Cognitive Assessment Comments Pt needing simple concrete commands, safety cues to use FWW, hand placement, and pt able to engage in conversation however slow to respond to questions at times. Pt needing assist to help use call light, orientation to button as pt states can not see well with his glasses that he has here, and does not have his bi-focals here. OT- Vision and Hearing OT- Hearing Assessment OT- Hearing Assessment WFL OT- Vision Assessment Vision Assessment Comments Pt states vision blurried due to does not have his bi-focals here. M7 OT- IP Mobility and Balance Start: 08/11/18 16:41 Freq: Status: Active Protocol: Document 08/11/18 16:42 [facility] (Rec: 08/11/18 17:44 [facility] [id number]) OT- Bed Mobility Assessment Rolling Type of Rolling Roll to Left Level of Assistance Maximum Assistance 2 Person Assistance Supine to Sit Supine to Sit Assist Maximum Assistance 2 Person Assistance OT-Transfer Assessment Sit to and From Stand Sit to and from Stand Maximum Assistance 2 Person Assistance Transfers Transfer Ability Maximum Assistance 2 Person Assistance Technique Transfer Destination Chair Transfer Technique Stand Pivot Devices Transfer Assistive Devices Gait Belt Front Wheeled Walker Comments Mobility Comments Pt MAX Ax2 for all mobility at this time. Pt weak and having trouble initially to sit to midline. Pt needing assist to stand, move FWW and help ease down to recliner. OT- Balance Assessment Sitting Balance and Reactions Static Sitting Balance Ability Fair Standing Balance and Reactions Static Standing Balance Ability Poor M8 OT- IP Objective Assessments Start: 08/11/18 16:41 Freq: Status: Active Protocol: Document 08/11/18 16:42 [facility] (Rec: 08/11/18 17:44 [facility] [id number]) OT Gross Range of Motion Upper Extremity Range of Motion Assessment Bilaterally Impaired ROM Impairments Left UE able to raise up to 0- 100 degrees shoulder flexion, able to close fist 75% and extension at fingers 80%. RUE 0-30 shoulder flexion, only able to close right hand 50%. OT Strength Upper Extremity Strength Assessment Bilaterally Impaired Comments Strength Comments LUE proximal to distal 3-/5 to 3+/5, RUE 3-/5. Pt needing some assist for RUE to help place up on the FWW. OT- Coordination Assessment Comments Coordination Comments Impaired for FMS. OT Sensation Assessment Comments Summary Comments Decreased for bilateral 5th digits and for ulnar side of right palm. Edema Edema Absent Edema Comments Right hand more swollen then left hand. M9 OT- IP Assessment and Plan Start: 08/11/18 16:41 Freq: Status: Active Protocol: Document 08/11/18 16:42 [facility] (Rec: 08/11/18 17:44 [facility] [id number]) OT Summary Assessment and Plan Potential Rehabilitation Potential Fair Analytic Complexity at Evaluation Moderate Summary OT Impairments Pain Range of Motion Strength Balance Coordination Sensation Functional Cognition Functional Mobility Self-Feeding Grooming Dressing Toileting Bathing Toilet Transfers Shower Transfers Progress Towards Goals Slow Progress due to Medical Issues Slow Progress due to Activity Tolerance Slow Progress due to Cognition Assessment Summary Pt MOD complexity and now needing extensive assist x 2 for all needs. Pt is far from baseline as prior was completely independent , however due to attempted suicide by overdose and dehydration, pt is very weak, groggy, and decreased functional use of BUE, not thinking well. Pt's family wanting pt to go to inpatient pyschiatric facility, however pt current level of care is too great and will have to be independent with ADl's per case management note. Therefore recommend skilled rehab. Goals Self-Feeding Goal Standby Assistance Grooming Goal Standby Assistance Dressing Goal Minimal Assistance Toileting Goal Minimal Assistance Bathing Goal Moderate Assistance Toilet Transfer Goal Minimal Assistance Shower Transfer Goal Moderate Assistance OT-Other Goals Grooming goal in standing. Days to Meet Goals 7 Frequency of Treatment Frequency Of Treatment Once a Day Treatment Plan OT Treatment Plan ADL Training Functional Cognition Training Functional Mobility Patient/Family Education Discharge Planning Other Treatment Recommendations and Next Pt able to self feed with Treatment Focus larger utensil after set-up. Discharge Recommendations OT Discharge Recommendations SNF Rehab Other Discharge Recommendations Pending medical progress, inpatient pyschiatric facility
--- NOTE | 2018-08-11 18:21 | PC.NURSE ---
Addendum entered by Nelsy John R.N. 08/11/18 21:41: 2100 - Pt set up for HS meds. Able to take med without difficulty. Increased ROM to BUE. Some tremors, anxiety and mild agitation. Reinforced treatment plan. Assist to order breakfast. BG 185. Offer to assist pt to reposition, pt declined at this time, I think I will stay like this for a while. Educated to skin integrity. Reinforced safety and call light use. Call light in reach. Original Note: 1630 - Pt sitting up in a chair. 2 person assist by therapy. Pt forgetful and loses train of thought with conversation, delayed verbal responses, however eventually answers appropriately. Minimal recollection of events leading up to admission. Pt reports that he lives in a 5th wheel and is a member of [employer], states that every two weeks he relocates his trailer to a different park. Pt denies assistive device to ambulate. Denies hx of falls. Currently mild diaphoretic with UE tremors. Denies any hx of ETOH withdrawal however CIWA rating is 8. Continues to report pain 8 of 10. APAP given.
[2018-08-12] VITALS (11 sets, daily range): BP systolic 134–156; BP diastolic 73–86; PULSE 101–113; RESP 18–21; TEMP 36.1–38.1; O2SAT 90–95
[2018-08-12] MEDS: LORazepam 1 MG TABLET PO (02:08)
--- NOTE | 2018-08-12 06:23 | PC.NURSE ---
NOC Shift: Pt cooperative, oriented w/some short term memory deficit. CIWA 6-10. Given Ativan po once for anxiety. VSS, ST BBB on tele. Complains only of chronic pain issues, but denies wanting medication. Taking po, resting comfortably through shift. Denies suicidal ideations at this time. Remains 1:1 OBS.
[2018-08-12] MEDS: ENOXAPARIN 40 MG/0.4 ML SYRINGE SUBCUT (08:16)
[2018-08-12] MEDS: PANTOPRAZOLE 40 MG VIAL IV (08:17)
[2018-08-12] MEDS: FOLIC ACID 1 MG TABLET PO (08:17)
[2018-08-12] MEDS: THIAMINE 100 MG TABLET PO (08:17)
[2018-08-12] MEDS: MULTIVITAMIN 1 TABLET 1 TAB PO (08:17)
[2018-08-12] MEDS: BUPRENORPHINE 8 MG 1 EACH PO ×2 (08:22→20:50)
[2018-08-12] MEDS: INSULIN ASPART 100 UNIT/ML INSULN PEN SUBCUT ×3 (08:28→17:02)
[2018-08-12 08:59] LABS: Add Manual Diff / Slide Review NO; Basophils Absolute Auto 0 /uL (0-100); Basophils Percent Auto 0.4 % (0-2); Eosinophils Absolute Auto 100 /uL (0-450); Hematocrit 36.7 % (41-53); Hemoglobin 12.5 g/dL (13.5-17.5); Lymphocytes Absolute Auto 1100 /uL (1100-4500); Lymphocytes Percent Auto 10.3 % (25-40); Mean Corpuscular HGB Conc 34.1 % (30-36); Mean Corpuscular Volume 93.7 fL (80-100); Monocytes Absolute Auto 1300 /uL (0-900); Neutrophils Absolute Auto 8000 /uL (1500-7000); Neutrophils Percent Auto 76.3 % (50-75); Platelet Count 203 X10^3/uL (150-400); Red Blood Cell Count 3.91 X10^6/uL (4.5-5.9); Red Cell Distribution Width 13.7 % (11.6-14.8); White Blood Cell Count 10.5 X10^3/uL (4.5-11.0)
[2018-08-12 09:09] LABS: Alanine Aminotransferase 12 IU/L (21-72); Albumin 3.7 g/dL (3.5-5.0); Albumin Globulin Ratio 1.1 (1.0-2.8); Alkaline Phosphatase 69 U/L (38-126); Aspartate Aminotransferase 28 IU/L (17-59); BUN Creatinine Ratio 21.7 (6-22); Bilirubin Total 0.7 mg/dL (0.2-1.3); Blood Urea Nitrogen 13 mg/dL (9-20); Calcium 9.6 mg/dL (8.4-10.2); Carbon Dioxide 31 mmol/L (22-32); Chloride 93 mmol/L (98-107); Estimated Glomerular Filt Rate > 60.0 mL/min (>60); Globulin 3.4 g/dL (1.7-4.1); Glucose 141 mg/dL (80-110); HEMOLYSIS < 15 (0-50); Magnesium 1.6 mg/dL (1.6-2.3); Sodium 131 mmol/L (137-145); Total Protein 7.1 g/dL (6.3-8.2)
[2018-08-12 09:38] LABS: Procalcitonin 0.12 ng/mL (<0.5)
--- NOTE | 2018-08-12 10:11 | PM.PN.1 ---
Subjective Date Patient Seen: 08/12/18 Interval history: Narciso Rico is a 68-year-old male with a past medical history significant for hypertension, hyperlipidemia, diabetes mellitus type 2, non-insulin using, prostate cancer, spinal stenosis with neuropathy, asthma, chronic pain with opiate dependence now on Subutex and prior suicide attempt who presented to the ED via EMS for decreased level of consciousness secondary to polysubstance overdose. The patient is resting in bedside chair and appears comfortable. The patient continues experience generalized myalgias due to being unconscious and immobile for 3 days. His CIWA scores have been as high as 8 yesterday afternoon. CIWA score today 5. He is mildly tremulous and anxious. He reports that he is much more awake and alert today. He denies headache, shortness of breath, pleuritic pain, chest pain, abdominal pain, nausea, vomiting, fever, chills, diarrhea or constipation. He denies suicidal ideation or intent to harm himself or others. He continues to be voluntarily willing to go to inpatient mental health treatment. He is voiding via larry catheter which will be removed today. He has not yet had a BM since admission. He is up ambulating with walker and standby assist with PT/OT. Exam Vital Signs (past 8 hours): - 08/12/18 11:18 08/12/18 12:44 08/12/18 12:46 Temperature 100.1 F H 100.5 F H 100.5 F H Pulse Rate 113 H Respiratory Rate 21 Blood Pressure 141/86 H Pulse Oximetry 93 08/12/18 13:44 08/12/18 13:46 Temperature 98.5 F 98.5 F Pulse Rate Respiratory Rate Blood Pressure Pulse Oximetry Oxygen Delivery Method Room Air Oxygen Flow Rate 1 Narrative Exam Narrative: General: Older male lying in bed and in no acute distress, appears mildly uncomfortable and older than stated age, well-developed, well-nourished, appropriately interactive. HEENT: Normocephalic, atraumatic. External ears without defect. Pupils equal, round, and reactive to light. Anicteric sclerae, moist conjunctivae, and no lid lag. Neck: Supple with full range of motion. No lymphadenopathy or thyromegaly. Cardiovascular: Regular rhythm, tachycardic, without murmurs, rubs, or gallops appreciated. Pulmonary: Clear to auscultation bilaterally without crackles, wheezes, or rhonchi. Normal respiratory effort with no use of accessory muscles. Abdomen: Soft, bowel sounds present, nontender, nondistended. No hepatosplenomegaly or masses appreciated. Extremities: No clubbing, cyanosis, or edema. Skin: Normal temperature, turgor, and texture; no rash, ulcers, or subcutaneous nodules appreciated. Neurological: Cranial nerves grossly intact. Psychiatric: Depressed mood with flat affect. Objective Labs Result Diagrams: 08/12/18 08:42 08/12/18 08:42 Labs: Laboratory Results - last 24 hr 08/12/18 08/12/18 08/12/18 08:42 08:42 08:42 WBC 10.5 RBC 3.91 L Hgb 12.5 L Hct 36.7 L MCV 93.7 MCH 32.0 MCHC 34.1 RDW 13.7 Plt Count 203 Neut % (Auto) 76.3 H Lymph % (Auto) 10.3 L [place] % (Auto) 12.0 Eos % (Auto) 1.0 L Baso % (Auto) 0.4 Neut # (Auto) 8000 H Lymph # (Auto) 1100 [place] # (Auto) 1300 H Eos # (Auto) 100 Baso # (Auto) 0 Sodium 131 L Potassium 4.0 Chloride 93 L Carbon Dioxide 31 BUN 13 Creatinine 0.60 L Estimated GFR > 60.0 BUN/Creatinine Ratio 21.7 Glucose 141 H Calcium 9.6 Magnesium 1.6 Total Bilirubin 0.7 AST 28 ALT 12 L Alkaline Phosphatase 69 Total Creatine Kinase Total Protein 7.1 Albumin 3.7 Globulin 3.4 Albumin/Globulin Ratio 1.1 Procalcitonin 0.12 08/12/18 08:42 WBC RBC Hgb Hct MCV MCH MCHC RDW Plt Count Neut % (Auto) Lymph % (Auto) [place] % (Auto) Eos % (Auto) Baso % (Auto) Neut # (Auto) Lymph # (Auto) [place] # (Auto) Eos # (Auto) Baso # (Auto) Sodium Potassium Chloride Carbon Dioxide BUN Creatinine Estimated GFR BUN/Creatinine Ratio Glucose Calcium Magnesium Total Bilirubin AST ALT Alkaline Phosphatase Total Creatine Kinase 237 H Total Protein Albumin Globulin Albumin/Globulin Ratio Procalcitonin Assessment & Plan Assessment & Plan narrative: Narciso Rico is a 68-year-old male with a past medical history significant for hypertension, hyperlipidemia, diabetes mellitus type 2, non-insulin using, prostate cancer, spinal stenosis with neuropathy, asthma, chronic pain with opiate dependence now on Subutex and prior suicide attempt who presented to the ED via EMS for decreased level of consciousness secondary to polysubstance overdose. 1. Attempted suicide by overdose. -Patient found at home altered during a welfare check. Patient has history of previous suicidal attempt. -Patient reports overdosing on 12 of buprenorphine and 30 tablets of carisoprodol and taking them with 3 bottles of wine (Ros?) but cannot recall the exact date (08/07 or 08/08) he took the medication. It is believed that the ingestion was 3 days prior to admission as the patient has not taken any other medications in his pill box for 3 days per police. -ED staff reported the patient left note leaving his belongings to his ex-. Note is not available for review. -Continue one-to-one observation. He remains cooperative and follows directions. -COMMUNITY SERVICE SPECIALIST consulted and we appreciate their time in care of the patient. The patient is voluntarily willing to undergo inpatient mental health treatment. 2. Intentional polysubstance overdose, present on admission. Active. -Patient reports overdosing on 12 of buprenorphine and 30 tablets of carisoprodol and taking them with 3 bottles of wine (Ros?). Medication bottles are not available. -Patient is altered with impaired memory and was likely unconscious and immobile in a chair for approximately 3 days. CK is 349. Patient remains cooperative and tachycardic. Continue to treat symptomatically. -Discussed patient and buprenorphine dose with his PCP, Dr. Hennessy, who will continue to treat opiate dependence outpatient and limit amount dispensed and likely add naloxone. Continue buprenorphine 8 mg twice daily (not on formulary and ordered as needed 3 doses at a time). 3. Acute severe dehydration, present on admission. Resolved. -Patient was likely unconscious and immobile in a chair for approximately 3 days. Patient had soiled himself. -Initial BUN/ creatinine ratio is 36:1. -Continued normal saline until adequately hydrated. 4. Acute hypoxemic respiratory failure, present on admission. Resolved. -Patient was mildly tachypneic with a respiratory rate of 22 and oxygen saturation of 88% upon arrival to ED. Improved 2 L of oxygen to 98%, P/F ratio is 400. Patient is asymptomatic. -Medical record identifies a history of asthma, not specified as to severity or persistence of symptoms. -Chest x-ray demonstrated right basilar opacities consistent with atelectasis versus aspiration. Clinically he does not have pneumonia. -Continue respiratory therapy evaluation and treatment. Oxygen saturation goal 88-92%. 5. Non-occlusive superficial thrombus left antecubital vein, possibly chronic, present on admission. Stable. -Patient with prolonged down time and high risk for VTE. 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 Right upper extremity negative for DVT. -Bilateral lower extremity venous Doppler ultrasound negative for DVT. -CHADS-VASC2 score is 3. Patient was initially started on therapeutic Lovenox 85 mg twice daily which has been discontinued. Recommend repeat venous Doppler ultrasound of left upper extremity in 7-10 days. 6. Chronic alcohol abuse with acute alcohol withdrawal, present on admission. Resolving. -Patient has given several different conflicting quantities of alcohol use. Now that patient is more awake and alert reports drinking at least 2 bottles of Ros? a day. -Continue CIWA assessment and protocol including: Lorazepam based on CIWA score, folate, multivitamin, and thiamine. -Started low-dose beta-jenna with metoprolol tartrate 25 mg twice daily for persistent tachycardia likely related to alcohol withdrawal and mild hypertension. May consider discontinuing once through alcohol withdrawal. 7. Diabetes mellitus type 2, non-insulin using, present on admission. Stable. -Hemoglobin A1c 6.9%. -Patient was previously treated with metformin. Patient no longer medically treated. -Continue [facility] blood glucose checks and low-dose correctional scale insulin. 8. Chronic back pain with opiate dependence on Subutex now with generalized weakness, present on admission. Stable. -Patient with chronic back pain and bilateral peripheral neuropathy status post lumbar fusion of L3-5. -Patient was likely unconscious and immobile in a chair for approximately 3 days. -Held all narcotics until patient's mentation cleared. -Discussed patient and buprenorphine dose with his PCP, Dr. Hennessy, who will continue to treat opiate dependence outpatient and limit amount dispensed and likely add naloxone. Continue buprenorphine 8 mg twice daily (not on formulary and ordered as needed 3 doses at a time). -Continue physical and occupational therapy evaluation and treatment. 8. Chronic alcohol abuse, present on admission. Active. -Patient has given several different conflicting quantities of alcohol use. -Continue CIWA assessment and protocol including: Lorazepam based on CIWA score, folate, multivitamin, and thiamine. Disposition: Patient likely discharge to psychiatric hospital for voluntary inpatient mental health treatment in 1-2 days once able to ambulate independently. Quality VTE Deep Vein Thrombosis/Pulmonary Embolism Present on Admission: Yes
--- NOTE | 2018-08-12 11:45 | PT.IPTN ---
Current Diagnoses Acute embolism and thrombosis of unspecified deep veins of unspecified lower extremity (08/10/18) Physical Therapy Treatment Note M2 PT-IP Current Condition Start: 08/11/18 11:38 Freq: NEEDED Status: Active Protocol: Document 08/11/18 14:45 AB (Rec: 08/11/18 17:39 AB [id number]) Physical Therapy Current Condition Current Condition Evaluation Date 08/11/18 Treatment Diagnosis overdose; weakness; difficulty in walking Onset Date 08/10/18 Precautions Other Precautions Falls M3 PT-IP Subjective Start: 08/11/18 11:38 Freq: NEEDED Status: Active Protocol: Document 08/12/18 11:45 GGD (Rec: 08/12/18 12:21 GGD [email or web address]) Subjective Physical Therapy Visit Type Type Treatment Note Visit Start Time 11:25 Visit Stop Time 11:45 Total Visit Minutes 20 Number of CRANBERRY BOG SUPERVISOR Visits 1 Physical Therapy Visit Comments Patient Comments Pt willing to work with therpay. M4 PT-IP Mobility and Gait Start: 08/11/18 11:38 Freq: NEEDED Status: Active Protocol: Document 08/12/18 11:45 GGD (Rec: 08/12/18 12:21 GGD [email or web address]) PT-Bed Mobility Assessment Supine to Sit Supine to Sit Contact Guard Assistance Head of Bed Elevated Bedrails Scooting Scooting to Edge of Bed Contact Guard Assistance PT-Transfer Assessment Sit to and From Stand Sit to and from Stand Minimal Assistance 1 Person Assistance Use of Upper Extremities Equipment Transfer Assistive Device Front Wheeled Walker Transfers Transfer Destination Chair Transfer Ability Level of Assist Contact Guard Assistance 1 Person Assistance Use of Upper Extremities Gait Assessment Gait Gait Assistance Required: Contact Guard Assist Distance (Feet) 70 Able to Maintain Weight Bearing Status Yes During Gait Assistive Devices Assistive Device Gait Belt Front Wheeled Walker Orthotic/Prosthetic Devices or Brace: No Gait Deviations General Gait Pattern Antalgic Decreased Feet Clearance Flexed Trunk Factors Limiting Gait Function Factors Limiting Gait Function Decreased Activity Tolerance Decreased Strength Pain Poor Balance Comments Gait Comments Pt ambulated 5 forward and then backwards x 2 with CGA. Then ambulated 50 feet with CGA. O2 on RA with activity 89 -92%, HR 122-127. 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 Impaired Gross Range of Motion Lower Extremity ROM Assessment Within Functional Limits Strength Lower Extremity Strength Assessment Bilaterally Impaired Comments Strength Comments BLE: 3+/5 M6 PT-IP Treatment Start: 08/11/18 11:38 Freq: NEEDED Status: Active Protocol: Document 08/11/18 14:45 AB (Rec: 08/11/18 17:39 AB [id number]) Physical Therapy Treatment Education Education Provided Safety M7 PT-IP Assessment and Plan Start: 08/11/18 11:38 Freq: NEEDED Status: Active Protocol: Document 08/12/18 11:45 GGD (Rec: 08/12/18 12:21 GGD [email or web address]) PT Summary Assessment and Plan Summary Assessment Summary Pt improving with mobility. He need CGA and was slow moving. He was able to progress gait with FWW. PT would benefit from therapy 2x day to improve mobility, gait and strengthening. Frequency of Treatment Frequency Of Treatment Twice a Day Treatment Plan Physical Therapy Treatment Plan Bed Mobility Training Transfer Training Gait Training Therapeutic Exercise Balance Retraining Discharge Planning Hot or Cold Pack Neuromuscular Re-ed Coordination Retraining Manual Therapy Other Recommendations and Next Treatment ambulation Focus Recommendations To Nursing Amount of Assist Needed 1 Person Assist Discharge Recommendations PT Discharge Recommendations SNF Rehab
[2018-08-12] MEDS: ACETAMINOPHEN 325 MG TABLET 650 MG PO ×2 (12:46→20:52)
--- NOTE | 2018-08-12 12:48 | PC.NURSE ---
Dr. Gonzalez on rounds 1230. Reported temps trending up. Instructed to give APAP as ordered and monitor for effect. Pt denies shortness of breath at rest. Mildly tachypneic 19-21 at rest and mid 20s with exertion. Weaned O2 to RA with O2 sats maintaining 91-94%. Educated to use of IS. Pt able to get up to 2000 ML with fair breath holding ability. HR 110s ST BBB at rest and up to 125 with exertion. Pt denies chest pain/pressure/tightness. Denies palpitations. Reports mild dizziness upon standing but states it goes away after a few seconds. Able to mobilize with PT and ambulate with use of walker. Denies suicidal ideation. States he is hopeful and is planning to call his congregation men's group tomorrow for support. Reports his ex- with whom he has a positive relationship will be here to visit today. 1:1 sitter at bedside for direct obs.
[2018-08-12 14:50] LABS: Creatine Kinase 237 U/L (55-170)
--- NOTE | 2018-08-12 15:30 | OT.IP.TRT ---
Current Diagnoses Acute embolism and thrombosis of unspecified deep veins of unspecified lower extremity (08/10/18) Occupational Therapy Treatment Note M2 OT-IP Current Condition Start: 08/11/18 16:41 Freq: Status: Active Protocol: Document 08/11/18 16:42 [facility] (Rec: 08/11/18 17:44 [facility] [email or web address]) Occupational Therapy Current Condition Current Condition Evaluation Date 08/11/18 Treatment Diagnosis Suicidal ideation/overdose Diagnosis Onset Date 08/10/18 Weight Bearing Status Weight Bearing Status Weight Bear as Tolerated M3 OT- IP Subjective and Pain Start: 08/11/18 16:41 Freq: Status: Active Protocol: Document 08/12/18 15:30 PJM (Rec: 08/12/18 16:13 PJM [email or web address]) OT- Subjective Occupational Therapy Visit Type Type Treatment Note Visit Start Time 15:02 Visit Stop Time 15:30 Total Visit Minutes 28 Notes Pt awake and alert in bed; agreeable to tx. Occupational Therapy Visit Comments Patient Comments I think I am doing better than yesterday. Patient/Caregiver Goals to get stronger, be able to walk without a cane, be able to take care of his dog OT Pain Assessment Pain When Pain Assessed At Rest Pain Present Pain Present Denied Pain M4 OT- IP ADL's Start: 08/11/18 16:41 Freq: Status: Active Protocol: Document 08/12/18 15:30 PJM (Rec: 08/12/18 16:13 PJM [email or web address]) OT CLL-Abax-Xclmvus General Evaluation Self-Feeding Ability Independent Areas Needing Assistance Cutting Food Opening Containers Comments OT Self-Feeding Comments Pt fed self lunch today per FIELD MAP EDITOR after meal tray set up. OT ADL-Dressing General Eval Lower Body Dressing Ability Minimal Assistance Moderate Assistance Areas Needing Assistance Underpants/Brief Socks Comments OT Dressing Comments Pt min assist to get brief over feet and to sinker puller hips. Pt needed mod assist to start socks over feet toes. . M6 OT- IP Functional Cognition Start: 08/11/18 16:41 Freq: Status: Active Protocol: Document 08/12/18 15:30 PJM (Rec: 08/12/18 16:13 PJM [email or web address]) Cognitive Factors Limiting Selfcare Function Cognitive Ability Level of Alertness Alert Patient Orientation Name Month Date Year Place Attention Span Ability Capable of Focused Attention Ability to Follow Commands Able to Follow One Step Commands Cognitive Comments Cognitive Assessment Comments Pt much more alert and oriented x4 today. He follows one step commands, but still has mildly slowed speed of processing. OT- Vision and Hearing OT- Vision Assessment Vision Assessment Comments Pt able to read clock without glasses. Pt states his bifocals are in poor repair and uses them only to read at present. M7 OT- IP Mobility and Balance Start: 08/11/18 16:41 Freq: Status: Active Protocol: Document 08/12/18 15:30 PJM (Rec: 08/12/18 16:13 PJM [email or web address]) OT- Bed Mobility Assessment Rolling Type of Rolling Roll to Right Level of Assistance Standby Assistance 1 Person Assistance Bedrails Supine to Sit Supine to Sit Assist Standby Assistance 1 Person Assistance Bedrails Scooting Scooting to Edge of Bed Standby Assistance 1 Person Assistance OT-Transfer Assessment Sit to and From Stand Sit to and from Stand Contact Guard Assistance 1 Person Assistance Transfers Transfer Ability Contact Guard Assistance 1 Person Assistance Technique Transfer Destination Chair Transfer Technique Stand Step Pivot Devices Transfer Assistive Devices Gait Belt Front Wheeled Walker OT- Balance Assessment Sitting Balance and Reactions Static Sitting Balance Ability Good Dynamic Sitting Balance Ability Fair Standing Balance and Reactions Static Standing Balance Ability Good Dynamic Standing Balance Ability Fair Comments Other Balance Tests/Deviations/Treatment Mild loss of balance in : sitting when dressing on edge of bed. CGA for standing balance during lower body clothing management. M8 OT- IP Objective Assessments Start: 08/11/18 16:41 Freq: Status: Active Protocol: Document 08/12/18 15:30 PJM (Rec: 08/12/18 16:16 PJ [id number]) OT Gross Range of Motion Upper Extremity Range of Motion Assessment Both Impaired ROM Impairments R shoulder scaption limited to about 70 degrees with hx of R TSA per pt. Pt lacks active composite 5th finger flexion. Otherwise AROM WFL. Pt is R dominant. L shoulder scaption limited to about 90 degrees. Distal AROM WFL except pt lacks active composite finger flexion. OT Strength Comments Strength Comments BUE strength 3-/5 at shoulders , 3+/5 distally except B fifth finger flexion 2-/5. OT- Coordination Assessment Upper Extremity Finger to Nose Test Bilateral UE Impaired Finger Tapping Test Bilateral UE Impaired Comments Coordination Comments B hand tremors noted and decreased isolated finger movement especially in 4th/5th fingers OT Sensation Assessment Comments Summary Comments Pt reports B fifth fingers are numb M9 OT- IP Assessment and Plan Start: 08/11/18 16:41 Freq: Status: Active Protocol: Document 08/12/18 15:30 PJM (Rec: 08/12/18 16:13 PJM [email or web address]) OT Summary Assessment and Plan Potential Rehabilitation Potential Good Summary OT Impairments Strength Balance Functional Cognition Functional Mobility Grooming Dressing Toileting Bathing Toilet Transfers Shower Transfers Progress Towards Goals Progressing Toward Goals Assessment Summary Pt making good daily progress and is much more alert and oriented x4 today. He is also much improved with bed mobility and transfers. He is now a one person CGA for transfer to chair with FWW. Pt able to participate in lower body dressing tasks with min to mod assist. Mild B hand tremors noted and pt reports numbness in 5th finger of both hands and difficulty with active fifth finger composite flexion. Significant R>L shoulder scaption stiffness noted. Provided education re: B shoulder AROM ex that pt can do this evening. Goals updated to reflect pt progress. Goals Self-Feeding Goal Independent Grooming Goal Standby Assistance Dressing Goal Standby Assistance Toileting Goal Standby Assistance Bathing Goal Standby Assistance Toilet Transfer Goal Standby Assistance Shower Transfer Goal Standby Assistance OT-Other Goals Grooming goal is for standing at sink 5 min with no loss of balance. Days to Meet Goals 6 Frequency of Treatment Frequency Of Treatment Once a Day Treatment Plan OT Treatment Plan ADL Training Functional Cognition Training Functional Mobility Patient/Family Education Discharge Planning Discharge Recommendations Other Discharge Recommendations Per chart notes, d/c plan is in-pt psych facility.
[2018-08-12] MEDS: METOPROLOL IR 25 MG TABLET PO ×2 (15:46→20:50)
--- NOTE | 2018-08-12 16:30 | PT.IPTN ---
Current Diagnoses Acute embolism and thrombosis of unspecified deep veins of unspecified lower extremity (08/10/18) Physical Therapy Treatment Note M2 PT-IP Current Condition Start: 08/11/18 11:38 Freq: NEEDED Status: Active Protocol: Document 08/11/18 14:45 AB (Rec: 08/11/18 17:39 AB [id number]) Physical Therapy Current Condition Current Condition Evaluation Date 08/11/18 Treatment Diagnosis overdose; weakness; difficulty in walking Onset Date 08/10/18 Precautions Other Precautions Falls M3 PT-IP Subjective Start: 08/11/18 11:38 Freq: NEEDED Status: Active Protocol: Document 08/12/18 16:30 GGD (Rec: 08/12/18 16:54 GGD [email or web address]) Subjective Physical Therapy Visit Type Type Treatment Note Visit Start Time 16:00 Visit Stop Time 16:30 Total Visit Minutes 30 Number of INTERNET SALES ASSOCIATE Visits 2 Physical Therapy Visit Comments Patient Comments Pt states he would like to go back to bed. M4 PT-IP Mobility and Gait Start: 08/11/18 11:38 Freq: NEEDED Status: Active Protocol: Document 08/12/18 16:30 GGD (Rec: 08/12/18 16:54 GGD [email or web address]) PT-Bed Mobility Assessment Sit to Supine Sit to Supine Contact Guard Assistance Bedrails Scooting Scooting to Edge of Bed Contact Guard Assistance PT-Transfer Assessment Sit to and From Stand Sit to and from Stand Minimal Assistance 1 Person Assistance Use of Upper Extremities Equipment Transfer Assistive Device Front Wheeled Walker Transfers Transfer Destination Chair Transfer Ability Level of Assist Contact Guard Assistance 1 Person Assistance Use of Upper Extremities Comments Mobility Comments Pt need cues for sit to stand with hand placement. Gait Assessment Gait Gait Assistance Required: Contact Guard Assist Distance (Feet) 100 Able to Maintain Weight Bearing Status Yes During Gait Assistive Devices Assistive Device Gait Belt Front Wheeled Walker Orthotic/Prosthetic Devices or Brace: No Gait Deviations General Gait Pattern Antalgic Decreased Feet Clearance Flexed Trunk Factors Limiting Gait Function Factors Limiting Gait Function Decreased Activity Tolerance Decreased Strength Pain Poor Balance Comments Gait Comments O2 on RA with activity 87-92%, HR 110-120 M5 PT-IP Objective Assessments Start: 08/11/18 11:38 Freq: NEEDED Status: Active Protocol: Document 08/11/18 14:45 AB (Rec: 08/11/18 17:39 AB [id number]) Orientation Orientation/Cognition Level of Alertness Confusional State Orientation Name Safety Awareness Decreased Safety Awareness Memory Description Short Term Impaired Group Home Impaired Gross Range of Motion Lower Extremity ROM Assessment Within Functional Limits Strength Lower Extremity Strength Assessment Bilaterally Impaired Comments Strength Comments BLE: 3+/5 M6 PT-IP Treatment Start: 08/11/18 11:38 Freq: NEEDED Status: Active Protocol: Document 08/12/18 16:30 GGD (Rec: 08/12/18 16:54 GGD [email or web address]) Physical Therapy Treatment Other Treatments Other Treatment Performed standing heel raises, marches, balance NBOS, and tandem M7 PT-IP Assessment and Plan Start: 08/11/18 11:38 Freq: NEEDED Status: Active Protocol: Document 08/12/18 16:30 GGD (Rec: 08/12/18 16:54 GGD [email or web address]) PT Summary Assessment and Plan Summary Assessment Summary Pt improving slowly. He needed min a for sit <> stand from lower chair surface. He was able to progress gait, but need cues. Frequency of Treatment Frequency Of Treatment Twice a Day Treatment Plan Physical Therapy Treatment Plan Bed Mobility Training Transfer Training Gait Training Therapeutic Exercise Balance Retraining Discharge Planning Hot or Cold Pack Neuromuscular Re-ed Coordination Retraining Manual Therapy Other Recommendations and Next Treatment monitor vitals Focus Recommendations To Nursing Amount of Assist Needed 1 Person Assist Discharge Recommendations PT Discharge Recommendations SNF Rehab
[2018-08-13] VITALS (7 sets, daily range): BP systolic 123–151; BP diastolic 62–94; PULSE 91–109; RESP 14–22; TEMP 36.2–37.7; O2SAT 90–95
[2018-08-13] MEDS: LORazepam 1 MG TABLET PO ×2 (00:36→09:14)
--- NOTE | 2018-08-13 08:52 | P.PN_ITS ---
Subjective Interval history: Narciso Rico is a 68-year-old male with a past medical history significant for hypertension, hyperlipidemia, diabetes mellitus type 2, diet- controlled, prostate cancer, spinal stenosis with neuropathy, asthma, alcohol dependence, chronic pain with opiate dependence now on Subutex and prior suicide attempt who presented to the ED via EMS for decreased level of consciousness secondary to polysubstance overdose with Soma and buprenorphine. Patient is improving in his strength and cognition. He was able to get from bed to chair with standby assist. He is able to ambulate using a walker. He has some ongoing pain in the neck and back and numbness in his 5th digit bilaterally. His O2 sat is 93% on room air. CIWA this morning is 3. He denies current active suicidal ideation and is willing for voluntary inpatient mental health treatment. Exam Vital Signs (past 8 hours): - 08/13/18 04:30 08/13/18 07:38 Temperature 97.2 F L 99.0 F Pulse Rate 93 H 104 H Respiratory Rate 14 22 Blood Pressure 131/83 151/94 H Pulse Oximetry 94 95 Oxygen Delivery Method Nasal Cannula Oxygen Flow Rate 1 Narrative Exam Narrative: GENERAL: Alert very pleasant and appropriately conversant male sitting in chair and in no acute distress HEENT: Normocephalic atraumatic CHEST: Clear to auscultation bilaterally. CARDIAC: Mildly tachycardic with regular rhythm ABDOMEN: Nondistended, soft, nontender EXTREMITIES: no edema. NEUROLOGICAL: Nonfocal SKIN: Warm, dry, no petechiae, no rash Objective Labs Result Diagrams: 08/12/18 08:42 08/12/18 08:42 Labs: Laboratory Results - last 24 hr 08/12/18 08/12/18 08/12/18 08:42 08:42 08:42 WBC 10.5 RBC 3.91 L Hgb 12.5 L Hct 36.7 L MCV 93.7 MCH 32.0 MCHC 34.1 RDW 13.7 Plt Count 203 Neut % (Auto) 76.3 H Lymph % (Auto) 10.3 L [place] % (Auto) 12.0 Eos % (Auto) 1.0 L Baso % (Auto) 0.4 Neut # (Auto) 8000 H Lymph # (Auto) 1100 [place] # (Auto) 1300 H Eos # (Auto) 100 Baso # (Auto) 0 Sodium 131 L Potassium 4.0 Chloride 93 L Carbon Dioxide 31 BUN 13 Creatinine 0.60 L Estimated GFR > 60.0 BUN/Creatinine Ratio 21.7 Glucose 141 H Calcium 9.6 Magnesium 1.6 Total Bilirubin 0.7 AST 28 ALT 12 L Alkaline Phosphatase 69 Total Creatine Kinase Total Protein 7.1 Albumin 3.7 Globulin 3.4 Albumin/Globulin Ratio 1.1 Procalcitonin 0.12 08/12/18 08:42 WBC RBC Hgb Hct MCV MCH MCHC RDW Plt Count Neut % (Auto) Lymph % (Auto) [place] % (Auto) Eos % (Auto) Baso % (Auto) Neut # (Auto) Lymph # (Auto) [place] # (Auto) Eos # (Auto) Baso # (Auto) Sodium Potassium Chloride Carbon Dioxide BUN Creatinine Estimated GFR BUN/Creatinine Ratio Glucose Calcium Magnesium Total Bilirubin AST ALT Alkaline Phosphatase Total Creatine Kinase 237 H Total Protein Albumin Globulin Albumin/Globulin Ratio Procalcitonin Assessment & Plan Assessment & Plan narrative: Narciso Rico is a 68-year-old male with a past medical history significant for hypertension, hyperlipidemia, diabetes mellitus type 2, diet-controlled, prostate cancer, spinal stenosis with neuropathy, asthma, alcohol dependence, chronic pain with opiate dependence on Subutex and prior suicide attempt who presented to the ED via EMS for decreased level of consciousness secondary to polysubstance overdose. 1. Attempted suicide by overdose. -Patient found at home altered during a welfare check. Patient has history of previous suicidal attempt. -Patient reports overdosing on 12 of buprenorphine and 30 tablets of carisoprodol and taking them with 3 bottles of wine (Ros?) but cannot recall the exact date (08/07 or 08/08) he took the medication. It is believed that the ingestion was 3 days prior to admission as the patient has not taken any other m edications in his pill box for 3 days per police. -ED staff reported the patient left note leaving his belongings to his ex-. Note is not available for review. -Continue one-to-one observation. He remains cooperative and follows directions. -LOGGING TRACTOR OPERATOR SWAMP consulted and we appreciate their time in care of the patient. The patient expresses regret and denies current suicidality. He is voluntarily willing to undergo inpatient mental health treatment. 2. Intentional polysubstance overdose, present on admission. Active. -Patient reports overdosing on 12 of buprenorphine and 30 tablets of carisoprodol and taking them with 3 bottles of wine (Ros?). Medication bottles are not available. -Patient is altered with impaired memory and was likely unconscious and immobile in a chair for approximately 3 days. CK is 349. Patient remains cooperative and mildly tachycardic. Continue to treat symptomatically. -Dr. Jimenez Gonzalez discussed patient and buprenorphine dose with his PCP, Dr. Hennessy, who will continue to treat opiate dependence outpatient and limit amount dispensed and likely add naloxone. Continue buprenorphine 8 mg twice daily (not on formulary and ordered as needed 3 doses at a time). 3. Acute severe dehydration, present on admission. Resolved. -treated with IV fluids, discontinued 4. Acute hypoxemic respiratory failure, present on admission. Resolved. -Patient was mildly tachypneic with a respiratory rate of 22 and oxygen saturation of 88% upon arrival to ED. Improved 2 L of oxygen to 98%, P/F ratio is 400. Patient is asymptomatic. -Medical record identifies a history of asthma, not specified as to severity or persistence of symptoms. -Chest x-ray demonstrated right basilar opacities consistent with atelectasis versus aspiration. Clinically he does not have pneumonia. -currently is off of supplemental O2. 5. Non-occlusive superficial thrombus left antecubital vein, possibly chronic, present on admission. Stable. -Patient with prolonged down time and high risk for VTE. 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 Right upper extremity negative for DVT. -Bilateral lower extremity venous Doppler ultrasound negative for DVT. -Recommend repeat venous Doppler ultrasound of left upper extremity in 7-10 days. 6. Chronic alcohol dependence with acute alcohol withdrawal, present on admission. Resolved. -Patient reports drinking at least 2 bottles of Ros? a day. -Continue CIWA assessment and protocol including: Lorazepam based on CIWA score, folate, multivitamin, and thiamine. -patient was started on low-dose beta-jenna with metoprolol tartrate 25 mg twice daily for persistent tachycardia likely related to drug OD and alcohol withdrawal and also should help with his mild hypertension. May consider discontinuing prior to discharge. 7. Diabetes mellitus type 2, non-insulin using, present on admission. Stable. -Hemoglobin A1c 6.9%, CBG below 150 -Patient is diet controlled. -discontinued routine CBG 8. Chronic back pain with opiate dependence on Subutex now with generalized weakness, present on admission. Stable. -Patient with chronic back pain and bilateral peripheral neuropathy status post lumbar fusion of L3-5. -initially held all narcotics until patient's mentation cleared. -Discussed patient and buprenorphine dose with his PCP, Dr. Hennessy, who will continue to treat opiate dependence outpatient and limit amount dispensed and likely add naloxone. Continue buprenorphine 8 mg twice daily (not on formulary and ordered as needed 3 doses at a time). -Continue physical and occupational therapy evaluation and treatment. 8. Chronic alcohol dependence, present on admission. Resolving. -last CIWA score 3 -Continue CIWA assessment and protocol including: Lorazepam based on CIWA score, folate, multivitamin, and thiamine. Disposition: Patient is medically stable, mentating well, gaining strength, and able to ambulate independently with walker. Anticipate he can discharge to psychiatric hospital for voluntary inpatient mental health treatment within the next day. Quality VTE Deep Vein Thrombosis/Pulmonary Embolism Present on Admission: Yes
[2018-08-13] MEDS: ENOXAPARIN 40 MG/0.4 ML SYRINGE SUBCUT (09:08)
[2018-08-13] MEDS: THIAMINE 100 MG TABLET PO (09:08)
[2018-08-13] MEDS: METOPROLOL IR 25 MG TABLET PO ×2 (09:08→20:27)
[2018-08-13] MEDS: MULTIVITAMIN 1 TABLET 1 TAB PO (09:08)
[2018-08-13] MEDS: FOLIC ACID 1 MG TABLET PO (09:08)
[2018-08-13] MEDS: BUPRENORPHINE 8 MG 1 EACH PO ×2 (09:16→20:27)
--- NOTE | 2018-08-13 11:20 | PT.IPTN ---
Current Diagnoses Acute embolism and thrombosis of unspecified deep veins of unspecified lower extremity (08/10/18) Physical Therapy Treatment Note M2 PT-IP Current Condition Start: 08/11/18 11:38 Freq: NEEDED Status: Active Protocol: Document 08/11/18 14:45 AB (Rec: 08/11/18 17:39 AB [id number]) Physical Therapy Current Condition Current Condition Evaluation Date 08/11/18 Treatment Diagnosis overdose; weakness; difficulty in walking Onset Date 08/10/18 Precautions Other Precautions Falls M3 PT-IP Subjective Start: 08/11/18 11:38 Freq: NEEDED Status: Active Protocol: Document 08/13/18 11:20 GGD (Rec: 08/13/18 12:09 GGD [id number]) Subjective Physical Therapy Visit Type Type Treatment Note Visit Start Time 10:35 Visit Stop Time 11:20 Total Visit Minutes 45 Number of CEO AND FOUNDER Visits 3 Physical Therapy Visit Comments Patient Comments Pt willint to work PT. M4 PT-IP Mobility and Gait Start: 08/11/18 11:38 Freq: NEEDED Status: Active Protocol: Document 08/13/18 11:20 GGD (Rec: 08/13/18 12:09 GGD [id number]) PT-Bed Mobility Assessment Sit to Supine Sit to Supine Standby Assistance Bedrails Scooting Scooting to Edge of Bed Contact Guard Assistance PT-Transfer Assessment Sit to and From Stand Sit to and from Stand Contact Guard Assistance Use of Upper Extremities Equipment Transfer Assistive Device Bed Rail Front Wheeled Walker Transfers Transfer Destination Bed Chair Transfer Ability Level of Assist Contact Guard Assistance 1 Person Assistance Use of Upper Extremities Comments Mobility Comments transfer for chair to bed x 2 with SBA without FWW. Gait Assessment Gait Gait Assistance Required: Contact Guard Assist Distance (Feet) 240 Able to Maintain Weight Bearing Status Yes During Gait Assistive Devices Assistive Device Gait Belt Front Wheeled Walker Orthotic/Prosthetic Devices or Brace: No Gait Deviations General Gait Pattern Antalgic Decreased Feet Clearance Flexed Trunk Factors Limiting Gait Function Factors Limiting Gait Function Decreased Activity Tolerance Decreased Strength Pain Poor Balance Comments Gait Comments O2 on RA with activity 86-91%, HR 99-115 ambulated x 20 feet without assistive device. 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 Gross Range of Motion Lower Extremity ROM Assessment Within Functional Limits Strength Lower Extremity Strength Assessment Bilaterally Impaired Comments Strength Comments BLE: 3+/5 M6 PT-IP Treatment Start: 08/11/18 11:38 Freq: NEEDED Status: Active Protocol: Document 08/13/18 11:20 GGD (Rec: 08/13/18 12:09 GGD [id number]) Physical Therapy Treatment Other Treatments Other Treatment Performed standing marches, balance NBOS with head turns and E/C, and tandem, sit to stand x 5 M7 PT-IP Assessment and Plan Start: 08/11/18 11:38 Freq: NEEDED Status: Active Protocol: Document 08/13/18 11:20 GGD (Rec: 08/13/18 12:09 GGD [id number]) PT Summary Assessment and Plan Summary Assessment Summary Pt improving with mobility. He was able to progress gait distance with walk. He had mild unsteadiness with gait without assistive device. He was safe with transfers without assistive device. He improved with sit to stand control. Frequency of Treatment Frequency Of Treatment Twice a Day Treatment Plan Physical Therapy Treatment Plan Bed Mobility Training Transfer Training Gait Training Therapeutic Exercise Balance Retraining Discharge Planning Hot or Cold Pack Neuromuscular Re-ed Coordination Retraining Manual Therapy Recommendations To Nursing Amount of Assist Needed 1 Person Assist Discharge Recommendations PT Discharge Recommendations SNF Rehab
--- NOTE | 2018-08-13 12:28 | PC.NURSE ---
pt doing well today has been compliant with all requests and working with pt/ot- he remains deconditioned but ability has increased just in 24h- hopeful for dc to inpt psych in next day or two
--- NOTE | 2018-08-13 13:58 | OT.IP.TRT ---
Current Diagnoses Acute embolism and thrombosis of unspecified deep veins of unspecified lower extremity (08/10/18) Occupational Therapy Treatment Note M2 OT-IP Current Condition Start: 08/11/18 16:41 Freq: Status: Active Protocol: Document 08/11/18 16:42 CCC (Rec: 08/11/18 17:44 CCC [id number]) Occupational Therapy Current Condition Current Condition Evaluation Date 08/11/18 Treatment Diagnosis Suicidal ideation/overdose Diagnosis Onset Date 08/10/18 Weight Bearing Status Weight Bearing Status Weight Bear as Tolerated M3 OT- IP Subjective and Pain Start: 08/11/18 16:41 Freq: Status: Active Protocol: Document 08/13/18 13:58 PJM (Rec: 08/13/18 15:32 PJM [id number]) OT- Subjective Occupational Therapy Visit Type Type Treatment Note Visit Start Time 13:42 Visit Stop Time 13:58 Total Visit Minutes 15 Notes Pt in bed, very drowsy this session. RN reports pt has not had any Ativan since this AM but has had busy day with P.T. and visitors. Occupational Therapy Visit Comments Patient Comments I really need some sleep. I have hardly slept in 5 days. Patient/Caregiver Goals to get stronger, go home and be able to take care of his dog OT Pain Assessment Pain When Pain Assessed After Treatment Pain Present Pain Present Denied Pain M6 OT- IP Functional Cognition Start: 08/11/18 16:41 Freq: Status: Active Protocol: Document 08/13/18 13:58 PJM (Rec: 08/13/18 15:32 PJM [id number]) Cognitive Factors Limiting Selfcare Function Cognitive Ability Level of Alertness Drowsy Attention Span Ability Unable to Sustain Attention due to drowsiness Ability to Follow Commands Able to Follow One Step Commands Cognitive Comments Cognitive Assessment Comments Pt pleasant and cooperative but too drowsy for accurate SLUMS assessment this session. M8 OT- IP Objective Assessments Start: 08/11/18 16:41 Freq: Status: Active Protocol: Document 08/13/18 13:58 PJM (Rec: 08/13/18 15:32 PJM [id number]) OT Gross Range of Motion Upper Extremity Range of Motion ROM Impairments R shoulder scaption improved to 90 degrees today. Pt completed 5 reps of B towel exercise for B shoulder scaption. Pt reports some R shoulder pain with slow lowering of R shoulder. Pt also completed 5 reps of chest press. Pt demonstrating improved active 5th finger flexion in B hands with L hand better than R today. Pt has 75% composite 5th finger flexion in L hand and 50% in R hand. Pt can oppose R thumb to all fingers except 5th finger today, Pt can oppose L thumb to all fingers today. Pt has full finger extension in B hands OT Strength Comments Strength Comments B shoulders now 3/5 OT- Coordination Assessment Comments Coordination Comments Pt still using built up handle eating utensils and reports difficulty cutting meat. OT-Muscle Tone Assessment Muscle Tone WNL Yes OT Sensation Assessment Comments Summary Comments Pt reports sensation in B 5th fingers improving today but still not normal. M9 OT- IP Assessment and Plan Start: 08/11/18 16:41 Freq: Status: Active Protocol: Document 08/13/18 13:58 PJM (Rec: 08/13/18 15:32 PJM [id number]) OT Summary Assessment and Plan Potential Rehabilitation Potential Good Summary OT Impairments Range of Motion Strength Balance Coordination Sensation Functional Cognition Functional Mobility Self-Feeding Grooming Dressing Toileting Bathing Toilet Transfers Shower Transfers Progress Towards Goals Progressing Toward Goals Assessment Summary Pt making good daily progress with BUE/hand AROM, strength and functional use, but still has decreased activity tolerance. Pt c/o of feeling sleep deprived and was very fatigued/sleepy this PM, so did not administer cognitive screening test. Good participation and effort in BUE/hand exercises. Plan shower and cognitive assessment in AM. D/C plan still in pt psychiatric unit per chart notes. Goals Self-Feeding Goal Independent Grooming Goal Standby Assistance Dressing Goal Standby Assistance Toileting Goal Standby Assistance Bathing Goal Standby Assistance Toilet Transfer Goal Standby Assistance Shower Transfer Goal Standby Assistance OT-Other Goals Grooming goal is for standing at sink 5 min with no loss of balance. Pt will have functional B UE/ hand strength/dexterity as needed for independent ADL completion. Days to Meet Goals 5 Frequency of Treatment Frequency Of Treatment Once a Day Treatment Plan OT Treatment Plan ADL Training Functional Cognition Training Functional Mobility Patient/Family Education Discharge Planning Discharge Recommendations Other Discharge Recommendations Per chart notes, d/c plan is in-pt psych facility.
--- NOTE | 2018-08-13 14:45 | PT.IPTN ---
Current Diagnoses Acute embolism and thrombosis of unspecified deep veins of unspecified lower extremity (08/10/18) Physical Therapy Treatment Note M2 PT-IP Current Condition Start: 08/11/18 11:38 Freq: NEEDED Status: Active Protocol: Document 08/11/18 14:45 AB (Rec: 08/11/18 17:39 AB [id number]) Physical Therapy Current Condition Current Condition Evaluation Date 08/11/18 Treatment Diagnosis overdose; weakness; difficulty in walking Onset Date 08/10/18 Precautions Other Precautions Falls M3 PT-IP Subjective Start: 08/11/18 11:38 Freq: NEEDED Status: Active Protocol: Document 08/13/18 14:45 GGD (Rec: 08/13/18 15:26 GGD [id number]) Subjective Physical Therapy Visit Type Type Treatment Note Visit Start Time 14:10 Visit Stop Time 14:45 Total Visit Minutes 35 Number of SPECIAL EVENTS MANAGER Visits 4 Physical Therapy Visit Comments Patient Comments Pt states he is tired. M4 PT-IP Mobility and Gait Start: 08/11/18 11:38 Freq: NEEDED Status: Active Protocol: Document 08/13/18 14:45 GGD (Rec: 08/13/18 15:26 GGD [id number]) PT-Bed Mobility Assessment Rolling Type of Rolling Roll to Left Level of Assist Standby Assistance Supine to Sit Supine to Sit Contact Guard Assistance 1 Person Assistance Sit to Supine Sit to Supine Standby Assistance Scooting Scooting to Edge of Bed Contact Guard Assistance PT-Transfer Assessment Sit to and From Stand Sit to and from Stand Contact Guard Assistance Use of Upper Extremities Equipment Transfer Assistive Device Bed Rail Front Wheeled Walker Transfers Transfer Destination Bed Chair Transfer Ability Level of Assist Contact Guard Assistance 1 Person Assistance Use of Upper Extremities Comments Mobility Comments transfer to chair and then back to bed. Gait Assessment Comments Gait Comments PT refused gait due to being tired. PT-Balance Assessment Balance Tests Marley Balance Test Score 41 Query Text:Score M5 PT-IP Objective Assessments Start: 08/11/18 11:38 Freq: NEEDED Status: Active Protocol: Document 08/11/18 14:45 AB (Rec: 08/11/18 17:39 AB [id number]) Orientation Orientation/Cognition Level of Alertness Confusional State Orientation Name Safety Awareness Decreased Safety Awareness Memory Description Short Term Impaired Round Boner Impaired Gross Range of Motion Lower Extremity ROM Assessment Within Functional Limits Strength Lower Extremity Strength Assessment Bilaterally Impaired Comments Strength Comments BLE: 3+/5 M6 PT-IP Treatment Start: 08/11/18 11:38 Freq: NEEDED Status: Active Protocol: Document 08/13/18 14:45 GGD (Rec: 08/13/18 15:26 GGD [id number]) Physical Therapy Treatment Other Treatments Other Treatment Performed standing marches, balance NBOS and WBOS with head turns and E/C, and tandem, sit to stand x 5 M7 PT-IP Assessment and Plan Start: 08/11/18 11:38 Freq: NEEDED Status: Active Protocol: Document 08/13/18 14:45 GGD (Rec: 08/13/18 15:26 GGD [id number]) PT Summary Assessment and Plan Summary Assessment Summary Pt had decrease tolerance to activity, with increase C/O being tired. He tolerated balance and strengthening, but refused gait. Frequency of Treatment Frequency Of Treatment Twice a Day Treatment Plan Physical Therapy Treatment Plan Bed Mobility Training Transfer Training Gait Training Therapeutic Exercise Balance Retraining Discharge Planning Hot or Cold Pack Neuromuscular Re-ed Coordination Retraining Manual Therapy Recommendations To Nursing Amount of Assist Needed 1 Person Assist Discharge Recommendations PT Discharge Recommendations SNF Rehab
--- NOTE | 2018-08-13 15:15 | CM.DPC ---
DCP Cont: Per MD, pt making medical progress and likely stable for d/c to Inpt MH tx tomorrow 08/14/18 and pt still stating he is agreeable and voluntary for this plan. Per PT/OT, pt continues to make good progress and is now still using walker, but likely only needed for a few days, and CGA for bed mobility/ambulation. Anticipate pt to likely be independent tomorrow. SW attempted to meet bedside with pt to check in and further discussion on discharge planning after PT worked with pt but per PT and RN pt did not sleep well and has had visitors and regular therapy visits from PT/OT and starting to get grumpy and upset and requesting to be allowed to sleep for a while towards increasing his mobility progress. SW requested LIZZY Bhakta to help call Inpt MH facilities to confirm that if pt requires a walker independently tomorrow that a walker would not be a barrier and to start inquiring about open male voluntary beds. LIZZY Bhakta began placing calls and faxing clinicals to multiple facilities to determine if pt could be accepted by tomorrow. Some facilities stating they have concerns regarding pt's medical complexity and acuity. The following Inpt MH facilities were contacted: [facility]- too high acuity [facility]- pt is too old [facility]- No beds [facility]- No beds [facility]- no answer [facility]- left msg [facility]- faxed clinicals [facility]- have beds, willing to review but concerned about medical needs, faxed clinicals Plan: SW to follow closely for the above facilities reviewing pt's clinicals and to continue attempting Voluntary Inpt MH hospitalization for pt likely ready for d/c tomorrow 08/14/18. If no MH beds, possible need to attempt Inpt CD tx. MADELYN Obrien
--- NOTE | 2018-08-13 18:52 | PC.NURSE ---
patient is calm and cooperative in the last three hours
--- NOTE | 2018-08-13 23:15 | PC.NURSE ---
patient been calm, corporative and pleasant throughout the remainder of the shift
[2018-08-14] VITALS (8 sets, daily range): BP systolic 135–158; BP diastolic 70–80; PULSE 91–104; RESP 15–18; TEMP 36.4–38.4; O2SAT 92–96
[2018-08-14] MEDS: ALBUTEROL 2.5 MG/3 ML NEB (ADULT) INH (07:10)
[2018-08-14] MEDS: THIAMINE 100 MG TABLET PO (08:05)
[2018-08-14] MEDS: MULTIVITAMIN 1 TABLET 1 TAB PO (08:05)
[2018-08-14] MEDS: METOPROLOL IR 25 MG TABLET PO ×2 (08:05→20:35)
[2018-08-14] MEDS: FOLIC ACID 1 MG TABLET PO (08:05)
[2018-08-14] MEDS: ENOXAPARIN 40 MG/0.4 ML SYRINGE SUBCUT (08:05)
[2018-08-14] MEDS: BUPRENORPHINE 8 MG 1 EACH PO (08:06)
[2018-08-14] MEDS: SODIUM CHLORIDE 0.9% FLUSH 10 ML IV (08:11)
--- NOTE | 2018-08-14 10:58 | OT.IP.TRT ---
Current Diagnoses Acute embolism and thrombosis of unspecified deep veins of unspecified lower extremity (08/10/18) Occupational Therapy Treatment Note M2 OT-IP Current Condition Start: 08/11/18 16:41 Freq: Status: Active Protocol: Document 08/11/18 16:42 [facility] (Rec: 08/11/18 17:44 [facility] [id number]) Occupational Therapy Current Condition Current Condition Evaluation Date 08/11/18 Treatment Diagnosis Suicidal ideation/overdose Diagnosis Onset Date 08/10/18 Weight Bearing Status Weight Bearing Status Weight Bear as Tolerated M3 OT- IP Subjective and Pain Start: 08/11/18 16:41 Freq: Status: Active Protocol: Document 08/14/18 08:50 [facility] (Rec: 08/14/18 10:58 [facility] [id number]) OT- Subjective Occupational Therapy Visit Type Type Treatment Note Visit Start Time 08:50 Visit Stop Time 10:00 Total Visit Minutes 70 Occupational Therapy Visit Comments Patient Comments After encouragement , pt agreed to shower. OT Pain Assessment Pain When Pain Assessed At Rest Pain Present Pain Present Denied Pain M4 OT- IP ADL's Start: 08/11/18 16:41 Freq: Status: Active Protocol: Document 08/14/18 08:50 [facility] (Rec: 08/14/18 10:58 [facility] [id number]) OT ADL-Grooming General Evaluation Grooming Ability Minimal Assistance Comments OT Grooming Comments Assist for hair for completeness to comb and put up. OT ADL-Dressing General Eval Lower Body Dressing Ability Minimal Assistance Areas Needing Assistance Pants/Shorts Comments OT Dressing Comments ESTUARDO to help get brief over right foot, vc to start with right foot as RLE is weaker, CGA to stand and needing assist to fasten pants. OT ADL-Toileting General Evaluation Toileting Ability Standby Assistance Comments OT Toileting Comments SBA set-up for toielting needs . Pt use of gra bar and FWW to balance while standing. OT ADL-Bathing Bathing Type Bathing Type Shower General Evaluation Bathing Ability Moderate Assistance Areas Needing Assistance Wash/Dry Upper Body Devices Bathing Equipment Grab Bars Comments OT Bathing Comments Pt able to shower and needing assist to wash/dry back and hair. Pt having to sit for part of the shower as getting tired. Pt also needing use of grab bars for balance. M5 OT- IP IADL's Start: 08/11/18 16:41 Freq: Status: Active Protocol: Document 08/11/18 16:42 [facility] (Rec: 08/11/18 17:44 [facility] [email or web address]) OT-Instrumental Activities of Daily Living Home Safety Awareness Home Safety Comments At this time pt would need assist for all safety, ADl , and IADl needs. Pt 's brother requesting that pt go to inpatient psychiatric facility . M6 OT- IP Functional Cognition Start: 08/11/18 16:41 Freq: Status: Active Protocol: Document 08/14/18 08:50 [facility] (Rec: 08/14/18 10:58 [facility] [id number]) Cognitive Factors Limiting Selfcare Function Cognitive Ability Level of Alertness Alert Patient Orientation Name Age Birthday Month Date Year Day of Week Place Situation Attention Span Ability Capable of Focused Attention Capable of Sustained Attention Ability to Follow Commands Able to Follow One Step Commands Safety Awareness Underestimates Need for Assistance Problem Solving Ability Needs Assist to Identify Solutions Executive Function Ability Unable to Remember Details Cognitive Tests SLUMS Pt scored 24/30 and normal score for pt's education is 27 . pt having trouble with short term memory items and being able to name as amny animals in one minute. Cognitive Comments Cognitive Assessment Comments Pt states still fees a little slow to recall things overwise feels that overall that he is doing better. Pt feels that he will now have friends for constant support system to alwawys check up on him. M7 OT- IP Mobility and Balance Start: 08/11/18 16:41 Freq: Status: Active Protocol: Document 08/14/18 08:50 [facility] (Rec: 08/14/18 10:58 [facility] [email or web address]) OT-Transfer Assessment Sit to and From Stand Sit to and from Stand Standby Assistance 1 Person Assistance Transfers Transfer Ability Standby Assistance Contact Guard Assistance 1 Person Assistance Technique Transfer Destination Chair Shower Stall Toilet Devices Transfer Assistive Devices Gait Belt Front Wheeled Walker Comments Mobility Comments CGA while stepping into the out of the shower with grab bar. OT- Balance Assessment Sitting Balance and Reactions Static Sitting Balance Ability Normal Dynamic Sitting Balance Ability Good Standing Balance and Reactions Static Standing Balance Ability Good Dynamic Standing Balance Ability Fair M8 OT- IP Objective Assessments Start: 08/11/18 16:41 Freq: Status: Active Protocol: Document 08/14/18 08:50 [facility] (Rec: 08/14/18 10:58 [facility] [email or web address]) OT- Coordination Assessment Comments Coordination Comments Pt able to do handwritinig which is legible but not back to baseline, pt has difficulty to keep right 5th digit flexed while writing. Pt needing increased time to unbutton shirt and needing assist to button pants. OT Sensation Assessment Comments Summary Comments Pt still states sensation of right hand still off especially with his 5th digit. M9 OT- IP Assessment and Plan Start: 08/11/18 16:41 Freq: Status: Active Protocol: Document 08/14/18 08:50 [facility] (Rec: 08/14/18 10:58 [facility] [email or web address]) OT Summary Assessment and Plan Potential Rehabilitation Potential Good Summary OT Impairments Range of Motion Strength Balance Coordination Sensation Functional Cognition Functional Mobility Self-Feeding Grooming Dressing Toileting Bathing Toilet Transfers Shower Transfers Progress Towards Goals Progressing Toward Goals Assessment Summary Pt doing well and able to do most of showering and dressing needs today. Pt hoping to go to inpatient pyschiatrist facility soon. Goals Self-Feeding Goal Independent Grooming Goal Standby Assistance Dressing Goal Standby Assistance Toileting Goal Standby Assistance Bathing Goal Standby Assistance Toilet Transfer Goal Independent Shower Transfer Goal Standby Assistance Days to Meet Goals 3 Frequency of Treatment Frequency Of Treatment Once a Day Treatment Plan OT Treatment Plan ADL Training Functional Cognition Training Functional Mobility Patient/Family Education Discharge Planning Discharge Recommendations Other Discharge Recommendations Per chart notes, d/c plan is in-pt psych facility.
--- NOTE | 2018-08-14 11:20 | PT.IPTN ---
Current Diagnoses Acute embolism and thrombosis of unspecified deep veins of unspecified lower extremity (08/10/18) Physical Therapy Treatment Note M2 PT-IP Current Condition Start: 08/11/18 11:38 Freq: NEEDED Status: Active Protocol: Document 08/11/18 14:45 AB (Rec: 08/11/18 17:39 AB [id number]) Physical Therapy Current Condition Current Condition Evaluation Date 08/11/18 Treatment Diagnosis overdose; weakness; difficulty in walking Onset Date 08/10/18 Precautions Other Precautions Falls M3 PT-IP Subjective Start: 08/11/18 11:38 Freq: NEEDED Status: Active Protocol: Document 08/14/18 10:50 GGD (Rec: 08/14/18 11:35 GGD [id number]) Subjective Physical Therapy Visit Type Type Treatment Note Visit Start Time 10:20 Visit Stop Time 10:50 Total Visit Minutes 30 Number of TWISTER HAND Visits 5 Physical Therapy Visit Comments Patient Comments Pt willing to work with therapy. M4 PT-IP Mobility and Gait Start: 08/11/18 11:38 Freq: NEEDED Status: Active Protocol: Document 08/14/18 10:50 GGD (Rec: 08/14/18 11:35 GGD [id number]) PT-Transfer Assessment Sit to and From Stand Sit to and from Stand Standby Assistance Use of Upper Extremities Equipment Transfer Assistive Device Gait Belt Front Wheeled Walker Transfers Transfer Destination Chair Transfer Ability Level of Assist Standby Assistance 1 Person Assistance Use of Upper Extremities Gait Assessment Gait Gait Assistance Required: Contact Guard Assist Distance (Feet) 250 Able to Maintain Weight Bearing Status Yes During Gait Assistive Devices Assistive Device None Gait Belt Front Wheeled Walker Orthotic/Prosthetic Devices or Brace: No Gait Deviations General Gait Pattern Antalgic Decreased Feet Clearance Flexed Trunk Factors Limiting Gait Function Factors Limiting Gait Function Decreased Activity Tolerance Decreased Strength Pain Poor Balance Comments Gait Comments ambulated 180 feet with FWW with SBA, then 70 feet without assistive device with CGA. M5 PT-IP Objective Assessments Start: 08/11/18 11:38 Freq: NEEDED Status: Active Protocol: Document 08/11/18 14:45 AB (Rec: 08/11/18 17:39 AB [id number]) Orientation Orientation/Cognition Level of Alertness Confusional State Orientation Name Safety Awareness Decreased Safety Awareness Memory Description Short Term Impaired Field Attendant Impaired Gross Range of Motion Lower Extremity ROM Assessment Within Functional Limits Strength Lower Extremity Strength Assessment Bilaterally Impaired Comments Strength Comments BLE: 3+/5 M6 PT-IP Treatment Start: 08/11/18 11:38 Freq: NEEDED Status: Active Protocol: Document 08/14/18 10:50 GGD (Rec: 08/14/18 11:35 GGD [id number]) Physical Therapy Treatment Other Treatments Other Treatment Performed standing marches, balance NBOS E/C and head turns, and tandem with head turns M7 PT-IP Assessment and Plan Start: 08/11/18 11:38 Freq: NEEDED Status: Active Protocol: Document 08/14/18 10:50 GGD (Rec: 08/14/18 11:35 GGD [id number]) PT Summary Assessment and Plan Summary Assessment Summary Pt improving with mobility. He safe with sit to stand and transfers. He is safe with gait with FWW, but had LOB without AD. He improving with his balance and decrease LOB during balance exercises. Pt will need assistive device at D/C. Frequency of Treatment Frequency Of Treatment Twice a Day Treatment Plan Physical Therapy Treatment Plan Bed Mobility Training Transfer Training Gait Training Therapeutic Exercise Balance Retraining Discharge Planning Hot or Cold Pack Neuromuscular Re-ed Coordination Retraining Manual Therapy Other Recommendations and Next Treatment Gait with 4WW VS SPC Focus Recommendations To Nursing Amount of Assist Needed Standby Assistance Discharge Recommendations PT Discharge Recommendations SNF Rehab Equipment Needed for Home Before FWW or 4WW Discharge
--- NOTE | 2018-08-14 12:42 | PC.NURSE ---
Addendum entered by Summer Reddy R.N. 08/14/18 14:55: Pt sitting in chair, reports feeling a little anxious requested ativan. Patient given 0.5mg PO ativan. Original Note: Patient, calm, cooperative reports chronic back and neck pain, no meds given. Dr Smith in to see patient. One to one monitoring continues.
--- NOTE | 2018-08-14 12:52 | DIET.PN ---
RD f/u for low oral intake Wt increasing from 81kg to 82kg over past 3 d though PO intake reported as 50-75% of meals during same time frame. Plan: Recc ONS Glucerna TID to supplement kcal and PRO
--- NOTE | 2018-08-14 14:08 | PT.IPTN ---
Current Diagnoses Acute embolism and thrombosis of unspecified deep veins of unspecified lower extremity (08/10/18) Physical Therapy Treatment Note M2 PT-IP Current Condition Start: 08/11/18 11:38 Freq: NEEDED Status: Active Protocol: Document 08/11/18 14:45 AB (Rec: 08/11/18 17:39 AB [id number]) Physical Therapy Current Condition Current Condition Evaluation Date 08/11/18 Treatment Diagnosis overdose; weakness; difficulty in walking Onset Date 08/10/18 Precautions Other Precautions Falls M3 PT-IP Subjective Start: 08/11/18 11:38 Freq: NEEDED Status: Active Protocol: Document 08/14/18 14:08 AB (Rec: 08/14/18 16:35 AB [id number]) Subjective Physical Therapy Visit Type Type Treatment Note Visit Start Time 14:08 Visit Stop Time 14:35 Total Visit Minutes 27 Number of SUPERINTENDENT RENTING MANAGING Visits 0 Physical Therapy Visit Comments Patient Comments pt agreeable to do PT Therapy Pain Assessment Pain When Pain Assessed At Rest Pain Present Pain Present Pain Reported Location Back Scale Used pain scale not stated Pain Management Techniques Timing of Activity with Medications M4 PT-IP Mobility and Gait Start: 08/11/18 11:38 Freq: NEEDED Status: Active Protocol: Document 08/14/18 14:08 AB (Rec: 08/14/18 16:35 AB [id number]) PT-Transfer Assessment Sit to and From Stand Sit to and from Stand Standby Assistance Equipment Transfer Assistive Device Gait Belt Front Wheeled Walker Orthotic/Prosthetic Devices or Brace: No Comments Mobility Comments pt completed sit <>stand with SBA but with increase time needed to complete task and has increased UE use to complete task. Gait Assessment Gait Gait Assistance Required: Standby Assistance Contact Guard Assist Minimum Assistance Distance (Feet) 75 Able to Maintain Weight Bearing Status Yes During Gait Assistive Devices Assistive Device Gait Belt Straight Cane Small Based Quad Cane 4 Wheeled Walker Orthotic/Prosthetic Devices or Brace: No Gait Deviations General Gait Pattern Antalgic Factors Limiting Gait Function Factors Limiting Gait Function Decreased Activity Tolerance Decreased Strength Pain Poor Balance Comments Gait Comments Assessed ambulation using SPC. pt ambulated ~ 40 ft required min A and cues. presents with unsteady gait and requires cues for SPC placement and sequencity. pt with (+) LOB requiring min A for stability. Assessed ambulation using 4WW. pt completed ~ 100 ft SBA. pt able to manage brakes but with cues when to lock/unlock. Assessed ambulation using SBQC . pt is steadier with SBQC compared to SPC. able to complete ~ 75 ft CGA and cues. M5 PT-IP Objective Assessments Start: 08/11/18 11:38 Freq: NEEDED Status: Active Protocol: Document 08/11/18 14:45 AB (Rec: 08/11/18 17:39 AB [id number]) Orientation Orientation/Cognition Level of Alertness Confusional State Orientation Name Safety Awareness Decreased Safety Awareness Memory Description Short Term Impaired Whizzer Hand Impaired Gross Range of Motion Lower Extremity ROM Assessment Within Functional Limits Strength Lower Extremity Strength Assessment Bilaterally Impaired Comments Strength Comments BLE: 3+/5 M6 PT-IP Treatment Start: 08/11/18 11:38 Freq: NEEDED Status: Active Protocol: Document 08/14/18 14:08 AB (Rec: 08/14/18 16:35 AB [id number]) Physical Therapy Treatment Exercises Exercises Quad Sets Education Education Provided Precautions Safety M7 PT-IP Assessment and Plan Start: 08/11/18 11:38 Freq: NEEDED Status: Active Protocol: Document 08/14/18 14:08 AB (Rec: 08/14/18 16:35 AB [id number]) PT Summary Assessment and Plan Potential Rehabilitation Potential Good Summary Impairments Pain ROM Strength Balance Coordination Sensation Tone Cognition Bed Mobility Transfers Gait Activity Tolerance Progress Towards Goals Progressing Toward Goals Assessment Summary Pt is progressing with mobility but will require assistance at home. continues to present with decrease strength, requires SBA with ambulation using 4WW and CGA with quad cane. will require further ambulation training to be independent. recommending use of 4WW for outdoor/long distance mobility at this time . pt lives on a trailer and will not have enough room for a 4WW/FWW, recommending use of quad cane for indoor/short distance mobility but will continue with training. will continue to assess progress. Goals Bed Mobility Goal Independent Transfer Goal Independent Cane Gait Goal Independent Cane Four Wheel Walker Gait Distance 200 Days to Meet Goals 10 Frequency of Treatment Frequency Of Treatment Twice a Day Treatment Plan Physical Therapy Treatment Plan Bed Mobility Training Transfer Training Gait Training Therapeutic Exercise Balance Retraining Discharge Planning Hot or Cold Pack Neuromuscular Re-ed Coordination Retraining Manual Therapy Other Recommendations and Next Treatment Gait with 4WW VS SPC Focus Recommendations To Nursing Amount of Assist Needed 1 Person Assist Discharge Recommendations PT Discharge Recommendations SNF Rehab Equipment Needed for Home Before 4ww/quad cane Discharge
[2018-08-14] MEDS: LORazepam 0.5 MG TABLET PO ×2 (14:37→21:07)
--- NOTE | 2018-08-14 15:12 | PM.PN.1 ---
Subjective Date Patient Seen: 08/14/18 Interval history: Narciso Rico is a 68-year-old male with a past medical history significant for hypertension, hyperlipidemia, diabetes mellitus type 2, diet-controlled, prostate cancer, spinal stenosis with neuropathy, asthma, alcohol dependence, chronic pain with opiate dependence now on Subutex and prior suicide attempt who presented to the ED via EMS for decreased level of consciousness secondary to polysubstance overdose with Soma and buprenorphine. Patient is steadily improving in his strength and cognition although his strength and mobility remains below baseline functioning. He is basically independently ambulating with a walker and personal hygiene but requiring standby assistance within hospital setting due to continued fall risk. He has some ongoing acute on chronic pain in the neck and back and acute numbness in his 5th digit bilaterally due to nerve compression from immobility in chair the 3 days prior to admission. He denies current active suicidal ideation and is willing for voluntary inpatient mental health treatment. Unfortunately, we have been unsuccessful in obtaining acceptance in to inpatient Psychiatry because of his requirement for standby assistance due to fall risk in hospital setting. Exam Vital Signs (past 8 hours): - 08/14/18 07:30 08/14/18 11:00 Temperature 98.6 F 98.8 F Pulse Rate 98 H 91 H Respiratory Rate 16 16 Blood Pressure 135/74 142/80 H Pulse Oximetry 93 93 Oxygen Delivery Method Room Air Oxygen Flow Rate 0 Narrative Exam Narrative: GENERAL: Alert very pleasant and appropriately conversant male sitting in chair and in no acute distress HEENT: Normocephalic atraumatic CHEST: Clear to auscultation bilaterally. CARDIAC: regular rhythm ABDOMEN: Nondistended, soft, nontender EXTREMITIES: no edema. NEUROLOGICAL: Nonfocal SKIN: Warm, dry, no petechiae, no rash Objective Labs Result Diagrams: 08/12/18 08:42 08/12/18 08:42 Assessment & Plan Assessment & Plan narrative: Narciso Rico is a 68-year-old male with a past medical history significant for hypertension, hyperlipidemia, diabetes mellitus type 2, diet-controlled, prostate cancer, spinal stenosis with neuropathy, asthma, alcohol dependence, chronic pain with opiate dependence on Subutex and prior suicide attempt who presented to the ED via EMS for decreased level of consciousness secondary to polysubstance overdose. 1. Attempted suicide by overdose. -Patient found at home altered during a welfare check. Patient has history of previous suicidal attempt. -Patient reported overdosing on 12 of buprenorphine and 30 tablets of carisoprodol and taking them with 3 bottles of wine (Ros?) but cannot recall the exact date (08/07 or 08/08) he took the medication. It is believed that the ingestion was 3 days prior to admission as the patient has not taken any other medications in his pill box for 3 days per police. -ED staff reported the patient left note leaving his belongings to his ex-. Note is not available for review. -Continue one-to-one observation. He remains cooperative and follows directions. -psychiatric evaluate with Dr. Ky Smith on 08/14/2018, report pending -patient is voluntarily willing to undergo inpatient mental health treatment although we have been unable to find placement due to requiring standby assistance for his mobility 2. Toxic encephalopathy due to drug overdose, resolved -mental status has cleared up 3. Acute severe dehydration, present on admission. Resolved. -treated with IV fluids, discontinued 4. Acute hypoxemic respiratory failure, present on admission. Resolved. -Patient was mildly tachypneic with a respiratory rate of 22 and oxygen saturation of 88% upon arrival to ED. -Medical record identifies a history of asthma, not specified as to severity or persistence of symptoms. -Chest x-ray demonstrated right basilar opacities consistent with atelectasis versus aspiration. Clinically he does not have pneumonia. -supplemental O2 was discontinued and he has normal O2 sat on room air 5. Non-occlusive superficial thrombus left antecubital vein, possibly chronic, present on admission. Stable. -Patient with prolonged down time and high risk for VTE. 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 Right upper extremity negative for DVT. -Bilateral lower extremity venous Doppler ultrasound negative for DVT. -Recommend repeat venous Doppler ultrasound of left upper extremity in 7-10 days. 6. Chronic alcohol dependence with acute alcohol withdrawal, present on admission. Resolved. -Patient reported drinking at least 2 bottles of Ros? a day. -received folate, multivitamin, and thiamine. -patient started on low-dose beta-jenna with metoprolol tartrate 25 mg twice daily for persistent tachycardia likely related to drug OD and alcohol withdrawal and also should help with his mild hypertension. May consider discontinuing prior to discharge. -CIWA discontinued as ETOH withdrawal has resolved -left order for lorazepam 0.5 mg b.i.d. as needed for acute anxiety 7. Diabetes mellitus type 2, non-insulin using, present on admission. Stable. -Hemoglobin A1c 6.9%, CBG below 150 -Patient is diet controlled. -discontinued routine CBG 8. Chronic back pain with opiate dependence on Subutex now with generalized weakness, present on admission. Stable. -Patient with chronic back pain and bilateral peripheral neuropathy status post lumbar fusion of L3-5. -initially held all narcotics until patient's mentation cleared. -Dr. Gonzalez discussed patient and buprenorphine dose with his PCP, Dr. Hennessy, who will continue to treat opiate dependence outpatient and limit amount dispensed and likely add naloxone. Continue buprenorphine 8 mg twice daily (not on formulary and ordered as needed 3 doses at a time). 9. Weakness, impaired mobility status post drug OD -patient has made good progress in his strength and mobility, currently requiring use of walker with standby assistance due to fall risk in acute care setting -Continue physical and occupational therapy evaluation and treatment. Disposition: Patient is medically stable, mentating well, gaining strength, and able to ambulate with walker. Discharge delayed due to unable to find excepting inpatient psychiatric facility. Awaiting psychiatry consult recommendations from Dr Smith. Discharge planning for sniff rehab with outpatient psychiatric follow-up versus discharge home with outpatient psychiatry follow-up. Quality VTE Deep Vein Thrombosis/Pulmonary Embolism Present on Admission: Yes
--- NOTE | 2018-08-14 15:50 | CM.SWNOTE ---
Continued work today on safe DC planning for this 68 yo who presents after an intentional overdose on 30 Soma and 12 buprenorphine. Per H+P: The patient was found seated in a chair altered after not being seen or heard from for days and will defer check was requested. It was reported through the emergency department that a note was found leaving all his belongings to his ex-. Reviewed chart thoroughly to include efforts made by BORDER PATROL AGENT team towards inpt psychiatric stay. according to BRIAN Bhakta, [facility] psych unit responded by VM, that they have a bed available but pt is documented as 1 person assist and [facility] will not be able to accommodate someone that requires one person assist. Discussed above in multidisciplinary rounds this morning and MEMORY CARE DIRECTOR Yoana explained that pt moves very well w/ walker but he will not be considered independent if he needs a walker d/t [facility] regulations to ensure patient safety. Pt is a little unsteady but can maneuver independently w/walker in and out of his room. Met w/pt this morning to review plan. Pt says he is waiting to hear if he will be able to get into a facility to do more PT/OT (?) Had lengthy conversation w/pt to understand what he wanted for himself ie goals for DC, treatment- inpt vs outpt (?) Pt denied current thoughts of suicide but admitted to struggling with thoughts of self harm my whole life. Pt denies having a problem w/alcohol, stating he was sober for 15 years and only binge drinks. This BORDER PATROL AGENT encouraged pt to consider binge drinking and continuous drinking until blacking out as a problem since it signaled a lack of control and pt agreed. Pt is concerned if he goes home today he will not be able to take very good care of himself d/t generalized weakness. Pt is also concerned about his dog and trailer, ie where he will park it. Pt admits he needs to get connected with a spiritual community again to help him get stable and healthy. This BORDER PATROL AGENT strongly encouraged consistent f/u w/a psychiatrist if pt is DC home and pt agrees. Pt says I think I will need to follow up with my primary care physician every week, right? This BORDER PATROL AGENT unsure whether pt has some short term memory loss and/or continued symptoms of withdraw or he lacks insight into the severity of his mental illness and addiction ? Alerted Dr Malagon that it may be best to focus efforts on a secure outpt plan rather than continue a search for an inpt psychiatric unit that would have to accept him w/ a walker,requiring SBA, which is unlikely. Dr Malagon agreeable to contact Dr Smith for consult and recommendations on safe DC planning. Dr Smith consulted today at approx 1200, this BORDER PATROL AGENT unable to discuss his assessment/recommendations today. Will look for Consult note Friday. Following closely for coordination of the safest DCP available to pt. It's unclear today whether pt could get psychiatric f/u from Behavior[facility] next week. MADELYN Aparicio
--- NOTE | 2018-08-14 16:30 | PM.CN ---
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 use (Acute) Sleep apnea (Acute) Smoker (Acute) Diabetes (Chronic) Surgical History (Updated 08/11/18 @ 00:56 by YUN Morton) History of inguinal hernia repair (Acute) History of lumbar fusion (Acute) History of right shoulder replacement (Acute) Social History household members: none Smoking Status: Former smoker alcohol intake: current Social History household members: none Smoking Status: Former smoker alcohol intake: current Meds Home Medications Medication Instructions Recorded Confirmed Type buprenorphine HCl 8 mg SUBLINGUAL BID 08/10/18 08/11/18 History Allergies Allergy/AdvReac Type Severity Reaction Status Date / Time No Known Drug Allergies Allergy Verified 08/10/18 18:12 Exam Vital Signs (past 8 hours): - 08/14/18 11:00 08/14/18 15:00 Temperature 98.8 F 97.8 F Pulse Rate 91 H 93 H Respiratory Rate 16 15 Blood Pressure 142/80 H 146/78 H Pulse Oximetry 93 96 Oxygen Delivery Method Room Air Oxygen Flow Rate 0 Objective Labs Result Diagrams: 08/12/18 08:42 08/12/18 08:42
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
[2018-08-14] MEDS: BUPRENORPHINE 8 MG 1 EACH SL (18:44)
[2018-08-14] MEDS: ACETAMINOPHEN 325 MG TABLET 650 MG PO (23:20)
[2018-08-15] VITALS (8 sets, daily range): BP systolic 125–149; BP diastolic 58–86; PULSE 92–103; RESP 14–18; TEMP 36.8–37.3; O2SAT 91–93
[2018-08-15] MEDS: BUPRENORPHINE 8 MG 1 EACH SL ×2 (07:09→18:38)
[2018-08-15] MEDS: LORazepam 0.5 MG TABLET PO ×2 (07:41→18:41)
[2018-08-15] MEDS: MULTIVITAMIN 1 TABLET 1 TAB PO (09:06)
[2018-08-15] MEDS: THIAMINE 100 MG TABLET PO (09:06)
[2018-08-15] MEDS: ENOXAPARIN 40 MG/0.4 ML SYRINGE SUBCUT (09:06)
[2018-08-15] MEDS: FOLIC ACID 1 MG TABLET PO (09:07)
[2018-08-15] MEDS: METOPROLOL IR 25 MG TABLET PO ×2 (09:07→20:59)
--- NOTE | 2018-08-15 10:14 | P.PN_ITS ---
Subjective Date Patient Seen: 08/15/18 Interval history: 68-year-old male admitted to the hospital following an int entional suicide overdose. Today he reports his mood is ?up and down. He complains of pain and is concerned that his pain medication has been adjusted. I informed the patient that I would review and let him know. The patient is still requiring a front wheel walker. He is independent with a walker. It is unclear whether not he will be able to go directly to a psychiatric facility given his medical complexity and need for the walker. A did discuss with the patient plans for him to go to SNF if we were unable to arrange for direct admission to the psychiatric unit. Exam Vital Signs (past 8 hours): - 08/15/18 05:25 08/15/18 07:49 Temperature 98.2 F 99.1 F Pulse Rate 98 H 103 H Respiratory Rate 18 18 Blood Pressure 149/86 H 139/68 Pulse Oximetry 92 93 Oxygen Delivery Method Room Air Oxygen Flow Rate 0 Narrative Exam Narrative: Pleasant gentleman resting comfortably in no obvious distress Lungs: Clear to auscultation Cardiac exam: Regular rate and rhythm normal S1-S2 Abdomen: Soft and nontender Extremities: No edema Objective Labs Result Diagrams: 08/12/18 08:42 08/12/18 08:42 Assessment & Plan Assessment & Plan narrative: Attempted suicide by overdose. -Patient found at home altered during a welfare check. Patient has history of previous suicidal attempt. -Patient reported overdosing on 12 of buprenorphine and 30 tablets of carisoprodol and taking them with 3 bottles of wine (Ros?) but cannot recall the exact date (08/07 or 08/08) he took the medication. It is believed that the inges tion was 3 days prior to admission as the patient has not taken any other medications in his pill box for 3 days per police. -ED staff reported the patient left note leaving his belongings to his ex-. Note is not available for review. -Continue one-to-one observation. He remains cooperative and follows directions. -psychiatric evaluate with Dr. yK Smith on 08/14/2018, report pending -patient is voluntarily willing to undergo inpatient mental health treatment although we have been unable to find placement due to requiring standby assistance for his mobility 2. Toxic encephalopathy due to drug overdose, resolved -mental status has cleared up 3. Acute severe dehydration, present on admission. Resolved. -treated with IV fluids, discontinued 4. Acute hypoxemic respiratory failure, present on admission. Resolved. -Patient was mildly tachypneic with a respiratory rate of 22 and oxygen saturation of 88% upon arrival to ED. -Medical record identifies a history of asthma, not specified as to severity or persistence of symptoms. -Chest x-ray demonstrated right basilar opacities consistent with atelectasis versus aspiration. Clinically he does not have pneumonia. -supplemental O2 was discontinued and he has normal O2 sat on room air 5. Non-occlusive superficial thrombus left antecubital vein, possibly chronic, present on admission. Stable. -Patient with prolonged down time and high risk for VTE. 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 Right upper extremity negative for DVT. -Bilateral lower extremity venous Doppler ultrasound negative for DVT. -Recommend repeat venous Doppler ultrasound of left upper extremity in 7-10 days. 6. Chronic alcohol dependence with acute alcohol withdrawal, present on admission. Resolved. -Patient reported drinking at least 2 bottles of Ros? a day. -received folate, multivitamin, and thiamine. -patient started on low-dose beta-jenna with metoprolol tartrate 25 mg twice daily for persistent tachycardia likely related to drug OD and alcohol withdrawal and also should help with his mild hypertension. May consider discontinuing prior to discharge. -CIWA discontinued as ETOH withdrawal has resolved -left order for lorazepam 0.5 mg b.i.d. as needed for acute anxiety 7. Diabetes mellitus type 2, non-insulin using, present on admission. Stable. -Hemoglobin A1c 6.9%, CBG below 150 -Patient is diet controlled. -discontinued routine CBG 8. Chronic back pain with opiate dependence on Subutex now with generalized weakness, present on admission. Stable. -Patient with chronic back pain and bilateral peripheral neuropathy status post lumbar fusion of L3-5. -initially held all narcotics until patient's mentation cleared. -Dr. Gonzalez discussed patient and buprenorphine dose with his PCP, Dr. Hennessy, who will continue to treat opiate dependence outpatient and limit amount dispensed and likely add naloxone. Continue buprenorphine 8 mg twice daily (not on formulary and ordered as needed 3 doses at a time). 9. Weakness, impaired mobility status post drug OD -patient has made good progress in his strength and mobility, currently requiring use of walker with standby assistance due to fall risk in acute care setting -Continue physical and occupational therapy evaluation and treatment. Disposition: Patient is medically stable, mentating well, gaining strength, and able to ambulate with walker. Discharge delayed due to unable to find excepting inpatient psychiatric facility. Awaiting psychiatry consult recommendations from Dr Smith. Discharge planning for sniff rehab with outpatient psychiatric follow-up versus discharge home with outpatient psychiatry follow-up. Quality VTE Deep Vein Thrombosis/Pulmonary Embolism Present on Admission: Yes
--- NOTE | 2018-08-15 11:06 | PT.IPTN ---
Current Diagnoses Acute embolism and thrombosis of unspecified deep veins of unspecified lower extremity (08/10/18) Physical Therapy Treatment Note M2 PT-IP Current Condition Start: 08/11/18 11:38 Freq: NEEDED Status: Active Protocol: Document 08/11/18 14:45 AB (Rec: 08/11/18 17:39 AB [id number]) Physical Therapy Current Condition Current Condition Evaluation Date 08/11/18 Treatment Diagnosis overdose; weakness; difficulty in walking Onset Date 08/10/18 Precautions Other Precautions Falls M3 PT-IP Subjective Start: 08/11/18 11:38 Freq: NEEDED Status: Active Protocol: Document 08/15/18 11:05 GGD (Rec: 08/15/18 12:06 GGD [id number]) Subjective Physical Therapy Visit Type Type Patient Refusal Notes Pt states he having to much pain. He reports his pain is 9 /10. RN informed.
--- NOTE | 2018-08-15 11:51 | CM.SWNOTE ---
Social Work Note: Reviewed Dr Smith's consult note this morning, and then discussed pt in multidisciplinary rounds w/ Dr Love. Dr Love does not feel it is safe to DC pt home this weekend, given Dr Smith's input Friday and the severity of pt's attempt at suicide. Reviewed DC options for this pt w/Dr Love: Pt continues to improve in his mobility and physical function although he requires assist to get dressed and perform ADLs. Dr Love aware this will be a barrier to placement in an inpatient psychiatric facility. If pt managed to progress to complete independence w/walker or cane he would likely be a candidate for [facility] psych unit, but notes would need to reflect his independence. Pt would benefit from a Assisted Facility but he has a [facility] plan that can not be reached until Friday. The SNF search has not been started. Home might be a safe, and inevitable option if pt can be seen by Dr Smith before DC and outpt f/u can be secured. Pt will also benefit from assistance physically and w/medications if it can be secured (ex ?friends?) Attempted to see pt this morning and FRANKLYN Lees was beginning her session. Later learned from Yoana that pt was having a difficult morning and was feeling anxious and upset, did not want to work w/ PT. This LASTEX OPERATOR will likely stay out of pt's room today. Following very closely for coordination of the safest DCP that is available to pt. MADELYN Aparicio
--- NOTE | 2018-08-15 13:21 | OT.IP.TRT ---
Current Diagnoses Acute embolism and thrombosis of unspecified deep veins of unspecified lower extremity (08/10/18) Occupational Therapy Treatment Note Document 08/15/18 13:19 CGR (Rec: 08/15/18 13:20 CGR [id number]) OT- Subjective Occupational Therapy Visit Type Type Administrative Note Notes Attempted to see pt for OT services. Pt refused all activity immediately upon offer for ADLs. Will hold today and continue to follow.
--- NOTE | 2018-08-15 14:12 | PC.NURSE ---
4 visitors in room with pt. pt resting in bed. ambulates to bathroom with SBA and using walker. reports increased back pain. states no suicidal ideation. off 1:1 care.
[2018-08-15] MEDS: GABAPENTIN 300 MG CAPSULE PO ×2 (15:21→20:59)
--- NOTE | 2018-08-15 16:00 | PC.NURSE ---
REPRODUCTION TECHNICIAN note: Patient's family brought him boxer brief underwear, so he removed the disposable paper brief and changed into that.
--- NOTE | 2018-08-15 16:48 | PT.IPTN ---
Current Diagnoses Acute embolism and thrombosis of unspecified deep veins of unspecified lower extremity (08/10/18) Physical Therapy Treatment Note M2 PT-IP Current Condition Start: 08/11/18 11:38 Freq: NEEDED Status: Active Protocol: Document 08/11/18 14:45 AB (Rec: 08/11/18 17:39 AB [id number]) Physical Therapy Current Condition Current Condition Evaluation Date 08/11/18 Treatment Diagnosis overdose; weakness; difficulty in walking Onset Date 08/10/18 Precautions Other Precautions Falls M3 PT-IP Subjective Start: 08/11/18 11:38 Freq: NEEDED Status: Active Protocol: Document 08/15/18 16:42 AB (Rec: 08/15/18 16:48 AB [id number]) Subjective Physical Therapy Visit Type Notes Nurse informed PT that pt's family has questions about the pt. Talked to pt and family. pt concerned about increase LBP and 4th/5th fingers numbness/shooting pain on B hands. stated that with increase LBP, UE pain also increases. informed pt to let the doctor know. informed the nurse regarding pt's concerns. Pt's brother also stated and asked that pt will be in the hospital for a few more days and what are the things pt is working on. educated pt and family regarding pt's current level of mobility, assistance needed and goals. informed family that pt is working on gait training, standing balance and increasing activity tolerance . also informed family that they have to plan and set up assistance for pt upon d/c as pt will need assistance. family agreed and stated that they will talk about it. informed nurse suzie regarding pt and family concerns. nurse stated that she will ask the doctor.
[2018-08-15] MEDS: SERTRALINE 25 MG TABLET PO (20:59)
--- NOTE | 2018-08-15 22:48 | PC.NURSE ---
2200- Assessment reviewed and I agree with what is charted. Patient is stable. Will monitor
[2018-08-16 03:43] VITALS: BP 151/79; PULSE 88; RESP 18; TEMP 36.6; O2SAT 91
[2018-08-16 06:21] VITALS: PULSE 96; RESP 14; O2SAT 94
[2018-08-16] MEDS: ALBUTEROL 2.5 MG/3 ML NEB (ADULT) INH (06:21)
[2018-08-16] MEDS: BUPRENORPHINE 8 MG 1 EACH SL ×2 (06:34→18:39)
[2018-08-16 07:00] VITALS: BP 115/59; PULSE 98; RESP 15; TEMP 36.9; O2SAT 92
--- NOTE | 2018-08-16 08:46 | PM.PN.1 ---
Subjective Date Patient Seen: 08/16/18 Interval history: The patient is a 68-year-old man with chronic back pain, alcohol dependence who was admitted to the hospital for an intentional overdose. Today he reports that his numbness 10 Ling in the hand has improved. He was started on some Neurontin yesterday and is unsure whether that has made a difference. He is willing to continue it. I explained in detail to the patient and his family that we are awaiting placement. The decision regarding placement is dependent upon whether he will be able to go directly to an inpatient psych unit verses need for chcf prior to going to inpatient psychiatric care. Exam Vital Signs (past 8 hours): - 08/16/18 03:43 08/16/18 06:21 Temperature 97.8 F Pulse Rate 88 96 H Respiratory Rate 18 14 Blood Pressure 151/79 H Pulse Oximetry 91 94 Oxygen Delivery Method Room Air Oxygen Flow Rate 0 Narrative Exam Narrative: Pleasant male resting comfortably in no obvious distress Lungs: Occasional scattered crackle Cardiac exam: Regular rate and rhythm normal S1-S2 Abdomen: Soft and nontender Extremities: No edema Objective Labs Result Diagrams: 08/12/18 08:42 08/12/18 08:42 Assessment & Plan Assessment & Plan narrative: ssessment & Plan narrative: Attempted suicide by overdose. -Patient found at home altered during a welfare check. Patient has history of previous suicidal attempt. -Patient reported overdosing on 12 of buprenorphine and 30 tablets of carisoprodol and taking them with 3 bottles of wine (Ros?) but cannot recall the exact date (08/07 or 08/08) he took the medication. It is believed that the ingestion was 3 days prior to admission as the patient has not taken any other medications in his pill box for 3 days per police. -ED staff reported the patient left note leaving his belongings to his ex-. Note is not available for review. -Continue one-to-one observation. He remains cooperative and follows directions. -psychiatric evaluate with Dr. Ky Smith on 08/14/2018, -patient is voluntarily willing to undergo inpatient mental health treatment although we have been unable to find placement due to requiring standby assistance for his mobility. Continue to work with physical therapy and occupational therapy. Will follow up with his [facility] tomorrow. The long-term plan is for him to either go to inpatient psychiatric care or to chcf unit awaiting improvement in his functional mobility prior to transfer to inpatient psych. 2. Toxic encephalopathy due to drug overdose, resolved -mental status has cleared up 3. Acute severe dehydration, present on admission. Resolved. -treated with IV fluids, discontinued 4. Acute hypoxemic respiratory failure, present on admission. Resolved. -Patient was mildly tachypneic with a respiratory rate of 22 and oxygen saturation of 88% upon arrival to ED. -Medical record identifies a history of asthma, not specified as to severity or persistence of symptoms. -Chest x-ray demonstrated right basilar opacities consistent with atelectasis versus aspiration. Clinically he does not have pneumonia. -supplemental O2 was discontinued and he has normal O2 sat on room air 5. Non-occlusive superficial thrombus left antecubital vein, possibly chronic, present on admission. Stable. -Patient with prolonged down time and high risk for VTE. 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 Right upper extremity negative for DVT. -Bilateral lower extremity venous Doppler ultrasound negative for DVT. -Recommend repeat venous Doppler ultrasound of left upper extremity in 7-10 days. 6. Chronic alcohol dependence with acute alcohol withdrawal, present on admission. Resolved. -Patient reported drinking at least 2 bottles of Ros? a day. -received folate, multivitamin, and thiamine. -patient started on low-dose beta-jenna with metoprolol tartrate 25 mg twice daily for persistent tachycardia likely related to drug OD and alcohol withdrawal and also should help with his mild hypertension. May consider discontinuing prior to discharge. -CIWA discontinued as ETOH withdrawal has resolved -left order for lorazepam 0.5 mg b.i.d. as needed for acute anxiety 7. Diabetes mellitus type 2, non-insulin using, present on admission. Stable. -Hemoglobin A1c 6.9%, CBG below 150 -Patient is diet controlled. -discontinued routine CBG 8. Chronic back pain with opiate dependence on Subutex now with generalized weakness, present on admission. Stable. -Patient with chronic back pain and bilateral peripheral neuropathy status post lumbar fusion of L3-5. -initially held all narcotics until patient's mentation cleared. -Dr. Gonzalez discussed patient and buprenorphine dose with his PCP, Dr. Hennessy, who will continue to treat opiate dependence outpatient and limit amount dispensed and likely add naloxone. Continue buprenorphine 8 mg twice daily (not on formulary and ordered as needed 3 doses at a time). Neurontin added to his regimen which she seems to be tolerating well. 9. Weakness, impaired mobility status post drug OD -patient has made good progress in his strength and mobility, currently requiring use of walker with standby assistance due to fall risk in acute care setting -Continue physical and occupational therapy evaluation and treatment. Disposition: Patient is medically stable, mentating well, gaining strength, and able to ambulate with walker. Discharge delayed due to unable to find excepting inpatient psychiatric facility. Continue recommendations from Dr Smith. Discharge planning for sniff rehab with outpatient psychiatric follow-up versus discharge home with outpatient psychiatry follow-up. Quality VTE Deep Vein Thrombosis/Pulmonary Embolism Present on Admission: Yes
--- NOTE | 2018-08-16 08:49 | P.PN_ITS ---
Subjective Date Patient Seen: 08/16/18 Interval history: The patient is a 68-year-old man with chronic back pain, a lcohol dependence who was admitted to the hospital for an intentional overdose. Today he reports that his numbness 10 Ling in the hand has improved. He was started on some Neurontin yesterday and is unsure whether that has made a difference. He is willing to continue it. I explained in detail to the patient and his family that we are awaiting placement. The decision regarding placement is dependent upon whether he will be able to go directly to an inpatient psych unit verses need for senior living prior to going to inpatient psychiatric care. Exam Vital Signs (past 8 hours): - 08/16/18 03:43 08/16/18 06:21 Temperature 97.8 F Pulse Rate 88 96 H Respiratory Rate 18 14 Blood Pressure 151/79 H Pulse Oximetry 91 94 Oxygen Delivery Method Room Air Oxygen Flow Rate 0 Narrative Exam Narrative: Pleasant male resting comfortably in no obvious distress Lungs: Occasional scattered crackle Cardiac exam: Regular rate and rhythm normal S1-S2 Abdomen: Soft and nontender Extremities: No edema Objective Labs Result Diagrams: 08/12/18 08:42 08/12/18 08:42 Assessment & Plan Assessment & Plan narrative: ssessment & Plan narrative: Attempted suicide by overdose. -Patient found at home altered during a welfare check. Patient has history of previous suicidal attempt. -Patient reported overdosing on 12 of buprenorphine and 30 tablets of carisoprodol and taking them with 3 bottles of wine (Ros?) but cannot recall the exact date (08/07 or 08/08) he took the medication. It is believed that the ingestion was 3 days prior to admission as the patient has not taken any other medications in his pill box for 3 days per police. -ED staff reported the patient left note leaving his belongings to his ex-. Note is not available for review. -Continue one-to-one observation. He remains cooperative and follows directions. -psychiatric evaluate with Dr. Ky Smith on 08/14/2018, -patient is voluntarily willing to undergo inpatient mental health treatment although we have been unable to find placement due to requiring standby assistance for his mobility. Continue to work with physical therapy and occupational therapy. Will follow up with his [facility] tomorrow. The long-term plan is for him to either go to inpatient psychiatric care or to senior living unit awaiting improvement in his functional mobility prior to transfer to inpatient psych. 2. Toxic encephalopathy due to drug overdose, resolved -mental status has cleared up 3. Acute severe dehydration, present on admission. Resolved. -treated with IV fluids, discontinued 4. Acute hypoxemic respiratory failure, present on admission. Resolved. -Patient was mildly tachypneic with a respiratory rate of 22 and oxygen saturation of 88% upon arrival to ED. -Medical record identifies a history of asthma, not specified as to severity or persistence of symptoms. -Chest x-ray demonstrated right basilar opacities consistent with atelectasis versus aspiration. Clinically he does not have pneumonia. -supplemental O2 was discontinued and he has normal O2 sat on room air 5. Non-occlusive superficial thrombus left antecubital vein, possibly chronic, present on admission. Stable. -Patient with prolonged down time and high risk for VTE. 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 Right upper extremity negative for DVT. -Bilateral lower extremity venous Doppler ultrasound negative for DVT. -Recommend repeat venous Doppler ultrasound of left upper extremity in 7-10 days. 6. Chronic alcohol dependence with acute alcohol withdrawal, present on admission. Resolved. -Patient reported drinking at least 2 bottles of Ros? a day. -received folate, multivitamin, and thiamine. -patient started on low-dose beta-jenna with metoprolol tartrate 25 mg twice daily for persistent tachycardia likely related to drug OD and alcohol withdrawal and also should help with his mild hypertension. May consider discontinuing prior to discharge. -CIWA discontinued as ETOH withdrawal has resolved -left order for lorazepam 0.5 mg b.i.d. as needed for acute anxiety 7. Diabetes mellitus type 2, non-insulin using, present on admission. Stable. -Hemoglobin A1c 6.9%, CBG below 150 -Patient is diet controlled. -discontinued routine CBG 8. Chronic back pain with opiate dependence on Subutex now with generalized weakness, present on admission. Stable. -Patient with chronic back pain and bilateral peripheral neuropathy status post lumbar fusion of L3-5. -initially held all narcotics until patient's mentation cleared. -Dr. Gonzalez discussed patient and buprenorphine dose with his PCP, Dr. Hennessy, who will continue to treat opiate dependence outpatient and limit amount dispensed and likely add naloxone. Continue buprenorphine 8 mg twice daily (not on formulary and ordered as needed 3 doses at a time). Neurontin added to his regimen which she seems to be tolerating well. 9. Weakness, impaired mobility status post drug OD -patient has made good progress in his strength and mobility, currently requiring use of walker with standby assistance due to fall risk in acute care setting -Continue physical and occupational therapy evaluation and treatment. Disposition: Patient is medically stable, mentating well, gaining strength, and able to ambulate with walker. Discharge delayed due to unable to find e eptin inpatient psychiatric facility. Continue recommendations from Dr Smith. Discharge planning for sniff rehab with outpatient psychiatric follow- up versus discharge home with outpatient psychiatry follow-up. Quality VTE Deep Vein Thrombosis/Pulmonary Embolism Present on Admission: Yes
[2018-08-16] MEDS: GABAPENTIN 300 MG CAPSULE PO ×3 (08:58→21:03)
[2018-08-16] MEDS: MULTIVITAMIN 1 TABLET 1 TAB PO (08:58)
[2018-08-16] MEDS: METOPROLOL IR 25 MG TABLET PO ×2 (08:58→21:03)
[2018-08-16] MEDS: FOLIC ACID 1 MG TABLET PO (08:58)
[2018-08-16] MEDS: ENOXAPARIN 40 MG/0.4 ML SYRINGE SUBCUT (08:58)
--- NOTE | 2018-08-16 10:45 | PT.IPTN ---
Current Diagnoses Acute embolism and thrombosis of unspecified deep veins of unspecified lower extremity (08/10/18) Physical Therapy Treatment Note M2 PT-IP Current Condition Start: 08/11/18 11:38 Freq: NEEDED Status: Active Protocol: Document 08/11/18 14:45 AB (Rec: 08/11/18 17:39 AB [id number]) Physical Therapy Current Condition Current Condition Evaluation Date 08/11/18 Treatment Diagnosis overdose; weakness; difficulty in walking Onset Date 08/10/18 Precautions Other Precautions Falls M3 PT-IP Subjective Start: 08/11/18 11:38 Freq: NEEDED Status: Active Protocol: Document 08/16/18 10:20 CLB (Rec: 08/16/18 12:52 CLB [id number]) Subjective Physical Therapy Visit Type Type Treatment Note Visit Start Time 10:20 Visit Stop Time 10:45 Total Visit Minutes 25 Physical Therapy Visit Comments Patient Comments pt agreeable to do PT Therapy Pain Assessment Pain When Pain Assessed During Mobility Pain Present Pain Present Pain Reported Location Back Intensity 8 Scale Used Numeric (1 - 10) M4 PT-IP Mobility and Gait Start: 08/11/18 11:38 Freq: NEEDED Status: Active Protocol: Document 08/16/18 10:20 CLB (Rec: 08/16/18 12:52 CLB [id number]) PT-Bed Mobility Assessment Supine to Sit Supine to Sit Standby Assistance Sit to Supine Sit to Supine Standby Assistance Scooting Scooting to Edge of Bed Standby Assistance Scooting Up and Down in Bed Standby Assistance PT-Transfer Assessment Sit to and From Stand Sit to and from Stand Standby Assistance Equipment Transfer Assistive Device Gait Belt 4 Wheeled Walker Orthotic/Prosthetic Devices or Brace: No Transfers Transfer Destination Bed Comments Mobility Comments Pt is SBA for all bed mobility and sit-stand. Gait Assessment Gait Gait Assistance Required: Standby Assistance Contact Guard Assist Distance (Feet) 150 Able to Maintain Weight Bearing Status Yes During Gait Assistive Devices Assistive Device Gait Belt 4 Wheeled Walker Orthotic/Prosthetic Devices or Brace: No Gait Deviations General Gait Pattern Antalgic Factors Limiting Gait Function Factors Limiting Gait Function Decreased Activity Tolerance Decreased Strength Pain Poor Balance Comments Gait Comments Pt able to use 4WW CGA-SBA ~ 150ft in loa[place]. M5 PT-IP Objective Assessments Start: 08/11/18 11:38 Freq: NEEDED Status: Active Protocol: Document 08/11/18 14:45 AB (Rec: 08/11/18 17:39 AB [id number]) Orientation Orientation/Cognition Level of Alertness Confusional State Orientation Name Safety Awareness Decreased Safety Awareness Memory Description Short Term Impaired Longterm Impaired Gross Range of Motion Lower Extremity ROM Assessment Within Functional Limits Strength Lower Extremity Strength Assessment Bilaterally Impaired Comments Strength Comments BLE: 3+/5 M6 PT-IP Treatment Start: 08/11/18 11:38 Freq: NEEDED Status: Active Protocol: Document 08/16/18 10:20 CLB (Rec: 08/16/18 12:52 CLB [id number]) Physical Therapy Treatment Exercises Exercises Quad Sets Education Education Provided Precautions Safety Other Treatments Other Treatment Performed standing marches, balance NBOS E/C and head turns, and tandem with head turns M7 PT-IP Assessment and Plan Start: 08/11/18 11:38 Freq: NEEDED Status: Active Protocol: Document 08/16/18 10:20 CLB (Rec: 08/16/18 12:52 CLB [id number]) PT Summary Assessment and Plan Summary Impairments Pain ROM Strength Balance Coordination Sensation Tone Cognition Bed Mobility Transfers Gait Activity Tolerance Assessment Summary Pt is SBA with all bed mobility and transfers. Pt continues to progress with gait increasing distance but pt had increased pain to 8/10. Pt respectfully refused ambulation with quad cane due to increased back pain and pt felt it would increase pain further. Goals Bed Mobility Goal Independent Transfer Goal Independent Cane Gait Goal Independent Cane Four Wheel Walker Gait Distance 200 Days to Meet Goals 10 Frequency of Treatment Frequency Of Treatment Twice a Day Treatment Plan Physical Therapy Treatment Plan Bed Mobility Training Transfer Training Gait Training Therapeutic Exercise Balance Retraining Discharge Planning Hot or Cold Pack Neuromuscular Re-ed Coordination Retraining Manual Therapy Other Recommendations and Next Treatment gait Focus Recommendations To Nursing Amount of Assist Needed 1 Person Assist Discharge Recommendations PT Discharge Recommendations SNF Rehab Equipment Needed for Home Before 4ww/quad cane Discharge Pt stated that a 4WW would not fit in his RV and that he would be more likely to use a FWW.
[2018-08-16 11:00] VITALS: BP 116/66; PULSE 80; RESP 16; TEMP 36.8; O2SAT 98
--- NOTE | 2018-08-16 11:22 | CM.DPNOTE ---
Addendum entered by MADELYN Aparicio 08/16/18 12:21: Brother Chuy's contact: [phone] Original Note: Reviewed chart, pt discussed in multidisciplinary rounds: Pt continues to improve with the therapy team. Pt can maneuver independently, SBA (for safety) in the halls w/ use of walker. Pt did not work w/ OT yesterday and there is not an OT available most Sundays. On Friday08.14.18, pt required assist w/ dressing. By Friday08.17.18, it's likely pt will have improved w/ ADLs as well as mobility. This AUTOMATIC PILOT MECHANIC had a msg left from RN stating pt's brother Chuy would like a call, has a few questions for this AUTOMATIC PILOT MECHANIC. Met w/pt this morning, asked if this AUTOMATIC PILOT MECHANIC could contact his brother Chuy? Pt explained he wishes his brother didn't worry as much about him since he is also taking care of their 93 you father, but pt gives permission to speak w/brother about anything. Pt says he would like to get some sleep before his friends (from his support group) arrive. This AUTOMATIC PILOT MECHANIC suggests a meeting today w/his brother, AUTOMATIC PILOT MECHANIC and pt to discuss next steps if pt is DC home? Pt states he talked to his brother at length yesterday and doesn't feel he needs to speak w/him again today. Re: DCP options- Pt is denying current suicidal ideation or plan. Pt has also been visited by many people daily since being here. Dr Love feels Dr Smith needs to reassess before pt is cleared to return home, this would be Friday. It might be appropriate to try inpt psychiatric units Friday if pt has improved greatly w/ OT. Pt's functional status has greatly improved and he doesn't meet criteria for SNF. If he gets DC back home it would be helpful to get input from friends and family about who can assist pt ? TC placed to brother ChuyIVANA. Following closely for coordination of the safest DCP available to pt. MADELYN Aparicio
--- NOTE | 2018-08-16 12:43 | CM.DPNOTE ---
Had lengthy conversation w/pt's brother Chuy. Chuy is very concerned about pt. Chuy asks about pt's Medicare benefit and SNF? This TANK BUILDER HELPER explained it seems today pt is making enough improvement that he will not need SNF and may not meet [facility] criteria. Chuy explained that he lives in [place] and other family members live in the [place]. Pt's ex lives in [place] but has made herself available for the summer. This TANK BUILDER HELPER also suggested pt could get assistance if DC home from friends in the support group? Chuy agrees. Chuy feels pt requires inpt assist w/ both his struggles w/MH and addiction. This TANK BUILDER HELPER explained a few of the barriers in this process and attempted to reassure Chuy that [facility] was planning on seeing pt upon his return Friday to reassess and discuss next steps. This TANK BUILDER HELPER further explained that if pt could get himself to outpt supports, there are intensive programs that can address both pt's MH needs and support sobriety. Chuy appreciative of the conversation and will be happy to stay in contact as needed to assist in the DC planing process. Marcela Moser MSW
[2018-08-16 15:20] VITALS: BP 107/61; PULSE 83; RESP 17; TEMP 36.4; O2SAT 95
--- NOTE | 2018-08-16 16:06 | PT.IPTN ---
Current Diagnoses Acute embolism and thrombosis of unspecified deep veins of unspecified lower extremity (08/10/18) Physical Therapy Treatment Note M2 PT-IP Current Condition Start: 08/11/18 11:38 Freq: NEEDED Status: Active Protocol: Document 08/11/18 14:45 AB (Rec: 08/11/18 17:39 AB [id number]) Physical Therapy Current Condition Current Condition Evaluation Date 08/11/18 Treatment Diagnosis overdose; weakness; difficulty in walking Onset Date 08/10/18 Precautions Other Precautions Falls M3 PT-IP Subjective Start: 08/11/18 11:38 Freq: NEEDED Status: Active Protocol: Document 08/16/18 16:05 CLB (Rec: 08/16/18 16:06 CLB [id number]) Subjective Physical Therapy Visit Type Type Patient Refusal Notes Pt sleeping and refused therapy. Will check back with pt in AM.
[2018-08-16 19:23] VITALS: BP 101/52; PULSE 92; RESP 16; TEMP 36.4; O2SAT 93
[2018-08-16] MEDS: SERTRALINE 25 MG TABLET PO (21:03)
[2018-08-16] MEDS: LORazepam 0.5 MG TABLET PO (21:03)
[2018-08-17] VITALS (7 sets, daily range): BP systolic 103–144; BP diastolic 45–70; PULSE 83–99; RESP 16–20; TEMP 36.1–36.6; O2SAT 93–98
[2018-08-17] MEDS: BUPRENORPHINE 8 MG 1 EACH SL ×2 (06:50→18:50)
[2018-08-17] MEDS: LORazepam 0.5 MG TABLET PO ×2 (06:52→18:53)
[2018-08-17] MEDS: METOPROLOL IR 25 MG TABLET PO ×2 (09:11→20:24)
[2018-08-17] MEDS: MULTIVITAMIN 1 TABLET 1 TAB PO (09:11)
[2018-08-17] MEDS: GABAPENTIN 300 MG CAPSULE PO ×3 (09:11→20:24)
[2018-08-17] MEDS: ENOXAPARIN 40 MG/0.4 ML SYRINGE SUBCUT (09:11)
[2018-08-17] MEDS: FOLIC ACID 1 MG TABLET PO (09:12)
--- NOTE | 2018-08-17 09:32 | PC.NURSE ---
Addendum entered by Libby Gagnon R.N. 08/17/18 14:39: US - lue US in progress. Addendum entered by Libby Gagnon R.N. 08/17/18 14:25: MS - showered with OT, then up sink for adl's, back to chair. Original Note: AM NOTE - pt up to dangle position, using fww, ambul to sink for adl's, hx neuropathy boris hands 4th and 5th digits and boris feet, coarse crackles r mid lobe, rr unlabored, abraison l elbow, removed allevyn dsg, cleaned and replaced with small coversite, chronic back pain 3-4 on scale 0/10, declines tylenol that doesn't work, to chair for breakfast and then back bed after meal.
--- NOTE | 2018-08-17 11:17 | PT.IPTN ---
Current Diagnoses Acute embolism and thrombosis of unspecified deep veins of unspecified lower extremity (08/10/18) Physical Therapy Treatment Note M2 PT-IP Current Condition Start: 08/11/18 11:38 Freq: NEEDED Status: Active Protocol: Document 08/11/18 14:45 AB (Rec: 08/11/18 17:39 AB [id number]) Physical Therapy Current Condition Current Condition Evaluation Date 08/11/18 Treatment Diagnosis overdose; weakness; difficulty in walking Onset Date 08/10/18 Precautions Other Precautions Falls M3 PT-IP Subjective Start: 08/11/18 11:38 Freq: NEEDED Status: Active Protocol: Document 08/17/18 11:18 RS (Rec: 08/17/18 11:30 RS [id number]) Subjective Physical Therapy Visit Type Type Treatment Note Visit Start Time 10:35 Visit Stop Time 11:17 Total Visit Minutes 42 Number of SODA TESTER Visits 0 Physical Therapy Visit Comments Patient Comments Pt reports not sleeping well due to nocturnal polyuria but feels poor sleep is better than dehydration. Therapy Pain Assessment Pain When Pain Assessed During Mobility Pain Present Pain Present Pain Reported Location Back Intensity 7 Scale Used Numeric (1 - 10) M4 PT-IP Mobility and Gait Start: 08/11/18 11:38 Freq: NEEDED Status: Active Protocol: Document 08/17/18 11:18 RS (Rec: 08/17/18 11:30 RS [id number]) PT-Bed Mobility Assessment Supine to Sit Supine to Sit Independent Sit to Supine Sit to Supine Independent Scooting Scooting to Edge of Bed Independent PT-Transfer Assessment Sit to and From Stand Sit to and from Stand Independent Equipment Transfer Assistive Device Small Based Quad Cane Front Wheeled Walker Transfers Transfer Destination Bed Chair Transfer Technique walked and turned to sit Transfer Ability Level of Assist Independent Comments Mobility Comments Pt is independent for bed mobility and mod ind for transfers with FWW or SBQC. Gait Assessment Gait Gait Assistance Required: Independent Distance (Feet) 165 Assistive Devices Assistive Device Small Based Quad Cane Front Wheeled Walker Gait Deviations General Gait Pattern Antalgic Factors Limiting Gait Function Factors Limiting Gait Function Decreased Activity Tolerance Decreased Strength Pain Poor Balance Comments Gait Comments Pt is mod ind with SBCA or FWW for up to 200ft before pain levels really start to rise. Pt's gait quality and posture are much better with the FWW, but pt is still stable ( thought slightly slower) with the SBQC as well. 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 Impaired Gross Range of Motion Lower Extremity ROM Assessment Within Functional Limits Strength Lower Extremity Strength Assessment Bilaterally Impaired Comments Strength Comments BLE: 3+/5 M6 PT-IP Treatment Start: 08/11/18 11:38 Freq: NEEDED Status: Active Protocol: Document 08/16/18 10:20 CLB (Rec: 08/16/18 12:52 CLB [id number]) Physical Therapy Treatment Exercises Exercises Quad Sets Education Education Provided Precautions Safety Other Treatments Other Treatment Performed standing marches, balance NBOS E/C and head turns, and tandem with head turns M7 PT-IP Assessment and Plan Start: 08/11/18 11:38 Freq: NEEDED Status: Active Protocol: Document 08/17/18 11:18 RS (Rec: 08/17/18 11:30 RS [id number]) PT Summary Assessment and Plan Potential Rehabilitation Potential Good Status of Condition at Evaluation Stable Summary Impairments Pain ROM Strength Balance Coordination Sensation Tone Cognition Bed Mobility Transfers Gait Activity Tolerance Progress Towards Goals Progressing Toward Goals Assessment Summary Pt is functioning at an ind to mod ind level for mobility. Pt does require use of a FWW or SBQC for transfers and walking. Gait quality is better with a walker, but pt doesn't feel like a walker will work well in his home. Therefore a SBQC, SPC, or no device will be the ultimate goal for ambulation. Pt's gait with a SBQC is stable but slow and causing quicker increase in pain leading to decreased activity tolerance. Pt would be safe for a home or facility environment from a mobility perspective, but still has potential for further functional improvement and will need continued follow-up therapy at some level, depending on ultimate discharge location, so TBD. Goals Bed Mobility Goal Independent Transfer Goal Independent Cane Gait Goal Independent Cane Gait Distance 200 Days to Meet Goals 5 Frequency of Treatment Frequency Of Treatment Once a Day Discharge Recommendations PT Discharge Recommendations Home Home Health Equipment Needed for Home Before Pt now saying a walker of any Discharge sort wouldn't work in his home , pt will likely need either a SPC or SBQC.
--- NOTE | 2018-08-17 12:17 | DIET.PN ---
RD f/u re [facility] diet order Ht: 175.2cm Wt: am weight likely recorded wrong, is 10kg lower than all other weights since admit. Pt upset c 30g carb level at meals, requests increase to 45g. Pt really just wants a glass or two of milk c meals. This seems reasonable request as BG w/o insulin range is 141-207 (H) A1c: 6.9. Pt reports he wants to have BM so he can be discharged, interested in eating solid foods for this reason. His hunger has returned has been consuming 75-100% of nourishments for past 2 d. Plan: Send Glucerna bid 10am and 2pm as snacks. Recc change diet order to 45g Carb Controlled
--- NOTE | 2018-08-17 14:10 | P.PN_ITS ---
Subjective Date Patient Seen: 08/17/18 Interval history: Narciso Rico is a 68-year-old male with a past medical history significant for hypertension, hyperlipidemia, diabetes mellitus type 2, non-insulin using, prostate cancer, spinal stenosis with neuropathy, asthma, chronic pain with opiate dependence now on Subutex and prior suicide attempt who presented to the ED via EMS for decreased level of consciousness secondary to polysubstance overdose. The patient is resting in bed comfortably. The patient continues to progress in regard to mobilization and performing ADLs independently. He continues to e ndorse whole body myalgias and rates his pain a +7/10. The patient reports his full body pain is new, however, rhabdomyolysis has been ruled out and there is no other etiology for acute full body myalgias. 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 He denies headache, shortness of breath, pleuritic pain, chest pain, abdominal pain, nausea, vomiting, fever, chills, diarrhea or constipation. He denies suicidal ideation or intent to harm himself or others. He continues to be voluntarily willing to go to inpatient mental health treatment. Plan to have Psychiatry re- evaluate need for inpatient mental health treatment tomorrow and continue to mobilize with PT/OT. He is voiding and eliminating without difficulty. He is up ambulating with cane. Exam Vital Signs (past 8 hours): - 08/17/18 08:04 08/17/18 11:58 Temperature 97.7 F 97.6 F Pulse Rate 96 H 83 Respiratory Rate 16 19 Blood Pressure 106/45 L 117/60 Pulse Oximetry 94 93 Oxygen Delivery Method Room Air Oxygen Flow Rate 0 Narrative Exam Narrative: General: Older male lying in bed and in no acute distress, appears older than stated age, well-developed, well-nourished, slightly irritable but appropriately interactive. HEENT: Normocephalic, atraumatic. External ears without defect. Pupils equal, round, and reactive to light. Anicteric sclerae, moist conjunctivae, and no lid lag. Neck: Supple with full range of motion. No lymphadenopathy or thyromegaly. Cardiovascular: Regular rhythm, tachycardic, without murmurs, rubs, or gallops appreciated. Pulmonary: Clear to auscultation bilaterally without crackles, wheezes, or rhonchi. Normal respiratory effort with no use of accessory muscles. Abdomen: Soft, bowel sounds present, nontender, nondistended. No hepatos plenomegaly or masses appreciated. Extremities: No clubbing, cyanosis, or edema. Skin: Normal temperature, turgor, and texture; no rash, ulcers, or subcutaneous nodules appreciated. Neurological: Cranial nerves grossly intact. Psychiatric: Depressed mood with flat affect. Objective Labs Result Diagrams: 08/12/18 08:42 08/12/18 08:42 Assessment & Plan Assessment & Plan narrative: Narciso Rico is a 68-year-old male with a past medical history significant for hypertension, hyperlipidemia, diabetes mellitus type 2, non-insulin using, prostate cancer, spinal stenosis with neuropathy, asthma, chronic pain with opiate dependence now on Subutex and prior suicide attempt who presented to the ED via EMS for decreased level of consciousness secondary to polysubstance overdose. 1. Attempted suicide by polysubstance overdose. -Patient found at home altered during a welfare check. Patient has history of previous suicidal attempt. -Patient reported overdosing on 12 of buprenorphine and 30 tablets of carisoprodol and taking them with 3 bottles of wine (Ros?) but cannot recall the exact date (08/07 or 08/08) he took the medication. It is believed that the ingestion was 3 days prior to admission as the patient has not taken any other medications in his pill box for 3 days per police. -ED staff reported the patient left note leaving his belongings to his ex-. Note is not available for review. -Continue one-to-one observation. He remains cooperative and follows directions. -Consulted Psychiatry, Dr. Ky Smith, on 08/14/2018 who recommended inpatient psychiatric treatment. Plan to have Dr. Smith re-evaluate necessity for inpatient psychiatric treatment tomorrow. Patient is voluntarily willing to undergo inpatient psychiatric treatment although we have been unable to find placement due to requiring standby assistance for his mobility. Continue physical and occupational therapies evaluation and treatment. The long-term plan is for him to either go to inpatient psychiatric care or home with home health versus outpatient therapy as his functional mobility is improving. 2. Generalized weakness and impaired mobility, status post drug overdose, present on admission. Resolving. -Patient has made good progress in his strength and mobility. Currently requiring use of 4-point cane with standby assistance due to fall risk in acute care setting. -Continue physical and occupational therapy evaluation and treatment. Recommending home with home health versus independent at inpatient psychiatric treatment facility. 3. Non-occlusive superficial thrombophlebitis of left antecubital vein, possibly chronic, present on admission. Stable. -Patient with prolonged down time and high risk for VTE. 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 Right upper extremity negative for DVT. -Bilateral lower extremity venous Doppler ultrasound negative for DVT. -Recommend repeat venous Doppler ultrasound of left upper extremity in 7-10 days. Ordered repeat venous Doppler ultrasound of left upper extremity, pending. 4. Toxic encephalopathy due to drug overdose, present on admission. Resolved. -Mental status clear and without confusion. 5. Acute severe dehydration, present on admission. Resolved. -Continued IV fluids until adequately hydrated. 6. Acute hypoxemic respiratory failure, present on admission. Resolved. -Patient was mildly tachypneic with a respiratory rate of 22 and oxygen saturation of 88% upon arrival to ED. -Medical record identifies a history of asthma, not specified as to severity or persistence of symptoms. -Chest x-ray demonstrated right basilar opacities consistent with atelectasis versus aspiration. Clinically he never had pneumonia. -Supplemental oxygen has been discontinued and he has normal oxygen saturations on room air. Oxygen saturation goal 88% or greater. 7. Chronic alcohol dependence with acute alcohol withdrawal, present on admission. Acute alcohol withdrawal resolved. -Patient reported drinking at least 2 bottles of Ros? a day. -Received folate, multivitamin, and thiamine. Continue multivitamin daily. -Started and continue low-dose beta-jenna with metoprolol tartrate 25 mg twice daily for persistent tachycardia likely related to drug OD and alcohol withdrawal and also should help with his mild hypertension. -CIWA discontinued as alcohol withdrawal has resolved. -Ordered lorazepam 0.5 mg twice daily as needed for anxiety. 8. Diabetes mellitus type 2, non-insulin using, present on admission. Stable. -Hemoglobin A1c 6.9% and diet controlled. -Discontinued routine continuous blood glucose checks and low-dose correctional scale insulin. 9. Chronic back pain with opiate dependence on Subutex, present on admission. Stable. -Patient with chronic back pain and bilateral peripheral neuropathy status post lumbar fusion of L3-5. -initially held all narcotics until patient's mentation cleared. -Previously discussed patient and buprenorphine dose with his PCP, Dr. Hennessy, who will continue to treat opiate dependence outpatient and limit amount dispensed and likely add naloxone. Continue buprenorphine 8 mg twice daily (not on formulary and ordered as needed 3 doses at a time). -Patient also has possible underlying alcohol-induced neuropathy and was started and will continue on gabapentin 300 mg 3 times daily which he seems to be tolerating well. Disposition: Patient is medically stable, mentating well, gaining strength, and able to ambulate with cane. Continue recommendations from Dr. Smith and will have him re-evaluate patient tomorrow. Discharge plan yet to be clear and is either likely home with outpatient physical therapy or versus inpatient psychiatric treatment facility for second suicide attempt. Quality VTE Deep Vein Thrombosis/Pulmonary Embolism Present on Admission: Yes
--- NOTE | 2018-08-17 14:25 | DI.US.S_ITS ---
PROCEDURE: US PERIP VENOUS UP EXTREM LT INDICATIONS: HX PARTIAL DVT LEFT ANTECUBITAL VEIN TECHNIQUE: Real-time imaging, as well as color and pulse Doppler interrogation, was performed of the left upper extremity deep veins from the inferior neck to the antecubital fossa. COMPARISON: [facility], , [facility] VENOUS UP EXTREM [place], 08/10/2018, 17:55. FINDINGS: The internal jugular vein, visualized portions of the subclavian vein, axillary, and brachial veins are free of intraluminal thrombus. Where physically possible, the veins are normally compressible. Color and pulse Doppler demonstrate normal intraluminal flow, with expected phasicity and pulsatility. There continues to be nonocclusive thrombus within a superficial vein within the left antecubital fossa, which is unchanged and does not extend into the deep vein system. IMPRESSION: 1. No evidence of left lower extremity deep vein thrombosis. 2. Unchanged nonocclusive superficial thrombophlebitis of the left antecubital region. Dictated by: Tesfaye Casas M.D. on 08/17/2018 at 15:18 Approved by: Tesfaye Casas M.D. on 08/17/2018 at 15:21
--- NOTE | 2018-08-17 15:02 | OT.IP.TRT ---
Current Diagnoses Acute embolism and thrombosis of unspecified deep veins of unspecified lower extremity (08/10/18) Occupational Therapy Treatment Note M2 OT-IP Current Condition Start: 08/11/18 16:41 Freq: Status: Active Protocol: Document 08/11/18 16:42 [facility] (Rec: 08/11/18 17:44 [facility] [id number]) Occupational Therapy Current Condition Current Condition Evaluation Date 08/11/18 Treatment Diagnosis Suicidal ideation/overdose Diagnosis Onset Date 08/10/18 Weight Bearing Status Weight Bearing Status Weight Bear as Tolerated M3 OT- IP Subjective and Pain Start: 08/11/18 16:41 Freq: Status: Active Protocol: Document 08/17/18 14:43 [facility] (Rec: 08/17/18 15:02 [facility] [id number]) OT- Subjective Occupational Therapy Visit Type Type Treatment Note Visit Start Time 13:20 Visit Stop Time 14:10 Total Visit Minutes 50 Occupational Therapy Visit Comments Patient Comments Pt agreeable to shower, cooperative , and pleasant. OT Pain Assessment Pain When Pain Assessed After Treatment Pain Present Pain Present Pain Reported M4 OT- IP ADL's Start: 08/11/18 16:41 Freq: Status: Active Protocol: Document 08/17/18 14:43 [facility] (Rec: 08/17/18 15:02 [facility] [id number]) OT ADL-Dressing General Eval Upper Body Dressing Ability Independent Lower Body Dressing Ability Independent Comments OT Dressing Comments Today pt independent with all dressing needs with good safety. Pt aware when to sit to dress, and able to lean against the shower wall to raiza his underwear with good safety. OT ADL-Toileting General Evaluation Toileting Ability Independent OT ADL-Bathing Bathing Type Bathing Type Shower General Evaluation Bathing Ability Independent Devices Bathing Equipment Grab Bars Comments OT Bathing Comments Pt able to stand for all of his showering needs today with increased time and good safety. Pt states can spanish moss picker a shower stool for use at home if needed. M5 OT- IP IADL's Start: 08/11/18 16:41 Freq: Status: Active Protocol: Document 08/11/18 16:42 [facility] (Rec: 08/11/18 17:44 [facility] [id number]) OT-Instrumental Activities of Daily Living Home Safety Awareness Home Safety Comments Pt good awareness for home safety needs now. . M6 OT- IP Functional Cognition Start: 06/11/19 16:41 Freq: Status: Active Protocol: Document 08/17/18 14:43 [facility] (Rec: 08/17/18 15:02 [facility] [id number]) Cognitive Factors Limiting Selfcare Function Cognitive Ability Level of Alertness Alert Patient Orientation Name Age Birthday Month Date Year Day of Week Place Situation Attention Span Ability Capable of Focused Attention Capable of Sustained Attention Ability to Follow Commands Able to Follow Multi-Step Commands Memory Description No Deficits Noted Safety Awareness No Deficits Noted Problem Solving Ability Needs Assist to Identify Solutions Executive Function Ability Unable to Organize Plans Cognitive Tests SLUMS Pt scored 28/30 and normal score of 27/30. Pt baseline for cognition at this time. Pt doing better with increased insight to needs if going home . spoke at length regarding trying to organize plans with ex- as taking care of his dog will be the biggest challenge at home for the pt if going home. Cognitive Comments Cognitive Assessment Comments Overall pt feels like he is back to baseline for his thinking needs. M7 OT- IP Mobility and Balance Start: 08/11/18 16:41 Freq: Status: Active Protocol: Document 08/17/18 14:43 [facility] (Rec: 08/17/18 15:02 [facility] [id number]) OT- Bed Mobility Assessment Rolling Level of Assistance Independent Supine to Sit Supine to Sit Assist Independent Scooting Scooting to Edge of Bed Independent OT-Transfer Assessment Sit to and From Stand Sit to and from Stand Independent Transfers Transfer Ability Independent Technique Transfer Destination Bed Chair Shower Stall Transfer Technique Stand Step Pivot Devices Transfer Assistive Devices Small Based Quad Cane Comments Mobility Comments Pt MOD I for level surfaces with small based quad cane and to step into the shower with use of grab bar for balance. OT- Balance Assessment Sitting Balance and Reactions Static Sitting Balance Ability Normal Dynamic Sitting Balance Ability Normal Standing Balance and Reactions Static Standing Balance Ability Good Dynamic Standing Balance Ability Fair M8 OT- IP Objective Assessments Start: 08/11/18 16:41 Freq: Status: Active Protocol: Document 08/17/18 14:43 [facility] (Rec: 08/17/18 15:02 [facility] [id number]) OT Sensation Assessment Comments Summary Comments Pt states sensation decreased to lateral side of now 4th and 5th digits. M9 OT- IP Assessment and Plan Start: 08/11/18 16:41 Freq: Status: Active Protocol: Document 08/17/18 14:43 [facility] (Rec: 08/17/18 15:02 [facility] [id number]) OT Summary Assessment and Plan Potential Rehabilitation Potential Good Summary OT Impairments Pain Balance Coordination Sensation Progress Towards Goals Progressing Toward Goals Assessment Summary Pt has improved with and now MOD I with all ADl's and functional mobility with small based quad cane or FWW. Pt's biggest barrier at home will be for IADl and taking care of his dog, pt states if not going to psych facility will have friends and ex- to assist for needs. Goals OT-Other Goals FMS exercises, work simplification/energy conservation needs. Days to Meet Goals 2 Frequency of Treatment Frequency Of Treatment Once a Day Treatment Plan OT Treatment Plan Therapeutic Exercises Patient/Family Education Discharge Planning Other Treatment Recommendations and Next [place] Making B assessment, ACL Treatment Focus Discharge Recommendations OT Discharge Recommendations Home with Assistance Home Health Other Discharge Recommendations Per chart notes, d/c plan is in-pt psych facility.
--- NOTE | 2018-08-17 15:52 | CM.DANOTE ---
DCP/continued: Reviewed chart. Patient seen by both PT and OT today. Both report patient cleared to either discharge home or to psychiatric facility. MADELYN and Dr. Gonzalez met with patient this afternoon. Patient continues to complain of pain and generalized weakness. Patient reports that he is unclear on d/c plan. Notified patient that Dr. Smith from psychiatry would be back tomorrow 6-18 and will see him and hopefully provide discharge recommendation. Patient denies suicidal ideation at this time. Patient hopes to be able to go home but has understandable fear of being home alone. P: Anticipate home vs. inpatient psychiatric treatment. Patient appears to be detoxed from alcohol and denies current suicidal ideation. MADELYN Chiu
--- NOTE | 2018-08-17 19:06 | PC.NURSE ---
Pt up in chair most of the shift. Using cane to get from chair to bed, gait steady. Pt has been calm and cooperative, denies suicide ideation. Had few friends visit. Pt to bed at this time.
[2018-08-17] MEDS: SERTRALINE 25 MG TABLET PO (20:23)
[2018-08-18 03:29] VITALS: BP 114/67; PULSE 87; RESP 18; TEMP 36.4; O2SAT 92
[2018-08-18 04:40] VITALS: PULSE 97; RESP 14; O2SAT 94
[2018-08-18] MEDS: ALBUTEROL 2.5 MG/3 ML NEB (ADULT) INH (04:40)
[2018-08-18] MEDS: BUPRENORPHINE 8 MG 1 EACH SL (06:44)
[2018-08-18] MEDS: LORazepam 0.5 MG TABLET PO (06:44)
[2018-08-18 07:30] VITALS: BP 114/65; PULSE 84; RESP 16; TEMP 36.5; O2SAT 96
[2018-08-18] MEDS: FOLIC ACID 1 MG TABLET PO (09:14)
[2018-08-18] MEDS: ENOXAPARIN 40 MG/0.4 ML SYRINGE SUBCUT (09:14)
[2018-08-18] MEDS: GABAPENTIN 300 MG CAPSULE PO ×2 (09:14→15:24)
[2018-08-18] MEDS: MULTIVITAMIN 1 TABLET 1 TAB PO (09:14)
[2018-08-18] MEDS: METOPROLOL IR 25 MG TABLET PO (09:15)
--- NOTE | 2018-08-18 11:12 | PT.IPTN ---
Current Diagnoses Acute embolism and thrombosis of unspecified deep veins of unspecified lower extremity (08/10/18) Physical Therapy Treatment Note M2 PT-IP Current Condition Start: 08/11/18 11:38 Freq: NEEDED Status: Active Protocol: Document 08/11/18 14:45 AB (Rec: 08/11/18 17:39 AB [id number]) Physical Therapy Current Condition Current Condition Evaluation Date 08/11/18 Treatment Diagnosis overdose; weakness; difficulty in walking Onset Date 08/10/18 Precautions Other Precautions Falls M3 PT-IP Subjective Start: 08/11/18 11:38 Freq: NEEDED Status: Active Protocol: Document 08/18/18 10:20 CLB (Rec: 08/18/18 11:12 CLB [email or web address]) Subjective Physical Therapy Visit Type Type Treatment Note Visit Start Time 10:20 Visit Stop Time 10:35 Total Visit Minutes 15 Number of DEGREASER Visits 1 Physical Therapy Visit Comments Patient Comments Pt agreeable to do therapy. Therapy Pain Assessment Pain When Pain Assessed During Mobility Pain Present Pain Present Pain Reported Location Back Intensity 5 Scale Used Numeric (1 - 10) M4 PT-IP Mobility and Gait Start: 08/11/18 11:38 Freq: NEEDED Status: Active Protocol: Document 08/18/18 10:20 CLB (Rec: 08/18/18 11:12 CLB [email or web address]) PT-Bed Mobility Assessment Supine to Sit Supine to Sit Independent Sit to Supine Sit to Supine Independent Scooting Scooting to Edge of Bed Independent PT-Transfer Assessment Sit to and From Stand Sit to and from Stand Independent Equipment Transfer Assistive Device Gait Belt Small Based Quad Cane Transfers Transfer Destination Bed Transfer Technique walked and turned to sit Transfer Ability Level of Assist Independent Comments Mobility Comments Pt is independent for all bed mobility and transfers with SBQC. Gait Assessment Gait Gait Assistance Required: Independent Distance (Feet) 150 Assistive Devices Assistive Device Gait Belt Small Based Quad Cane Gait Deviations General Gait Pattern Antalgic Factors Limiting Gait Function Factors Limiting Gait Function Decreased Activity Tolerance Decreased Strength Pain Poor Balance Comments Gait Comments Pt is up in room ambulating with SBQC independently. Pt ambulated ~150ft with SBQC w/o LOB. M5 PT-IP Objective Assessments Start: 08/11/18 11:38 Freq: NEEDED Status: Active Protocol: Document 08/11/18 14:45 AB (Rec: 08/11/18 17:39 AB [id number]) Orientation Orientation/Cognition Level of Alertness Confusional State Orientation Name Safety Awareness Decreased Safety Awareness Memory Description Short Term Impaired Alf Impaired Gross Range of Motion Lower Extremity ROM Assessment Within Functional Limits Strength Lower Extremity Strength Assessment Bilaterally Impaired Comments Strength Comments BLE: 3+/5 M6 PT-IP Treatment Start: 08/11/18 11:38 Freq: NEEDED Status: Active Protocol: Document 08/18/18 10:20 CLB (Rec: 08/18/18 11:12 CLB [email or web address]) Physical Therapy Treatment Exercises Exercises Quad Sets Other Treatments Other Treatment Performed standing marches, balance NBOS E/C and head turns, and tandem with head turns M7 PT-IP Assessment and Plan Start: 08/11/18 11:38 Freq: NEEDED Status: Active Protocol: Document 08/18/18 10:20 CLB (Rec: 08/18/18 11:12 CLB [email or web address]) PT Summary Assessment and Plan Potential Rehabilitation Potential Good Status of Condition at Evaluation Stable Summary Impairments Pain ROM Strength Balance Coordination Sensation Tone Cognition Bed Mobility Transfers Gait Activity Tolerance Progress Towards Goals Progressing Toward Goals Assessment Summary Pt is requiring SBQC for balance and is able to ambulate in room independently . Pt able to ambulate independently in loaiza for ~ 150ft with SBQC w/o LOB with LBP of 5/10 after 150ft. Pt is independent for all bed mobility and transfers. Goals Bed Mobility Goal Independent Transfer Goal Independent Cane Gait Goal Independent Cane Gait Distance 200 Days to Meet Goals 5 Frequency of Treatment Frequency Of Treatment Once a Day Treatment Plan Physical Therapy Treatment Plan Bed Mobility Training Transfer Training Gait Training Therapeutic Exercise Balance Retraining Discharge Planning Hot or Cold Pack Neuromuscular Re-ed Coordination Retraining Manual Therapy Recommendations To Nursing Amount of Assist Needed 1 Person Assist Discharge Recommendations PT Discharge Recommendations Home Home Health Equipment Needed for Home Before Pt now saying a walker of any Discharge sort wouldn't work in his home , pt will likely need either a SPC or SBQC.
--- NOTE | 2018-08-18 11:31 | DIET.PN ---
RD f/u re CCD diet order Discussed PO intake w/ patient. Appetite considerably improved w/ >75% PO intake. Plan: Discontinue Glucerna so patient may use carbohydrate limit for whole foods. Patient may receive 1 milk if within carbohydrate limit. Discussed this w/ patient and nursing. Glucerna may be provided as evening snack.
--- NOTE | 2018-08-18 12:23 | OT.IP.TRT ---
Current Diagnoses Acute embolism and thrombosis of unspecified deep veins of unspecified lower extremity (08/10/18) Occupational Therapy Treatment Note M2 OT-IP Current Condition Start: 08/11/18 16:41 Freq: Status: Active Protocol: Document 08/11/18 16:42 [facility] (Rec: 08/11/18 17:44 [facility] [email or web address]) Occupational Therapy Current Condition Current Condition Evaluation Date 08/11/18 Treatment Diagnosis Suicidal ideation/overdose Diagnosis Onset Date 08/10/18 Weight Bearing Status Weight Bearing Status Weight Bear as Tolerated M3 OT- IP Subjective and Pain Start: 08/11/18 16:41 Freq: Status: Active Protocol: Document 08/18/18 12:14 [facility] (Rec: 08/18/18 12:23 [facility] [email or web address]) OT- Subjective Occupational Therapy Visit Type Type Treatment Note Visit Start Time 11:50 Visit Stop Time 12:05 Total Visit Minutes 15 Occupational Therapy Visit Comments Patient Comments Pt looking to go home. M4 OT- IP ADL's Start: 08/11/18 16:41 Freq: Status: Active Protocol: Document 08/17/18 14:43 [facility] (Rec: 08/17/18 15:02 [facility] [email or web address]) OT ADL-Dressing General Eval Upper Body Dressing Ability Independent Lower Body Dressing Ability Independent Comments OT Dressing Comments Today pt independent with all dressing needs with good safety. Pt aware when to sit to dress, and able to lean against the shower wall to raiza his underwear with good safety. OT ADL-Toileting General Evaluation Toileting Ability Independent OT ADL-Bathing Bathing Type Bathing Type Shower General Evaluation Bathing Ability Independent Devices Bathing Equipment Grab Bars Comments OT Bathing Comments Pt able to stand for all of his showering needs today with increased time and good safety. M5 OT- IP IADL's Start: 08/11/18 16:41 Freq: Status: Active Protocol: Document 08/11/18 16:42 [facility] (Rec: 08/11/18 17:44 [facility] [email or web address]) OT-Instrumental Activities of Daily Living Home Safety Awareness Home Safety Comments At this time pt would need assist for all safety, ADl , and IADl needs. Pt 's brother requesting that pt go to inpatient psychiatric facility . M6 OT- IP Functional Cognition Start: 08/11/18 16:41 Freq: Status: Active Protocol: Document 08/18/18 12:14 [facility] (Rec: 08/18/18 12:23 [facility] [email or web address]) Cognitive Factors Limiting Selfcare Function Cognitive Ability Level of Alertness Alert Patient Orientation Name Age Birthday Month Date Year Day of Week Place Situation Attention Span Ability Capable of Focused Attention Capable of Sustained Attention Ability to Follow Commands Able to Follow Multi-Step Commands Memory Description No Deficits Noted Safety Awareness No Deficits Noted Cognitive Comments Cognitive Assessment Comments Pt scored 133 seconds on [place] making B which test visual attention, task switching, speed of processing, executive function, and mental flexibility. A score of 180 seconds per AMA implies most like to get into a car accident. Pt's score of 133 seconds implies significant impairment for the above stated issues. Pt states pt will have his ex- drive for now. 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 M7 OT- IP Mobility and Balance Start: 08/11/18 16:41 Freq: Status: Active Protocol: Document 08/17/18 14:43 [facility] (Rec: 08/17/18 15:02 [facility] [email or web address]) OT- Bed Mobility Assessment Rolling Level of Assistance Independent Supine to Sit Supine to Sit Assist Independent Scooting Scooting to Edge of Bed Independent OT-Transfer Assessment Sit to and From Stand Sit to and from Stand Independent Transfers Transfer Ability Independent Technique Transfer Destination Bed Chair Shower Stall Transfer Technique Stand Step Pivot Devices Transfer Assistive Devices Small Based Quad Cane Comments Mobility Comments Pt MOD I for level surfaces with small based quad cane and to step into the shower with use of grab bar for balance. OT- Balance Assessment Sitting Balance and Reactions Static Sitting Balance Ability Normal Dynamic Sitting Balance Ability Normal Standing Balance and Reactions Static Standing Balance Ability Good Dynamic Standing Balance Ability Fair M8 OT- IP Objective Assessments Start: 08/11/18 16:41 Freq: Status: Active Protocol: Document 08/17/18 14:43 [facility] (Rec: 08/17/18 15:02 [facility] [email or web address]) OT Sensation Assessment Comments Summary Comments Pt states sensation decreased to lateral side of now 4th and 5th digits. 08/18 Pt given theraputty and exercises to help with FMS. M9 OT- IP Assessment and Plan Start: 08/11/18 16:41 Freq: Status: Active Protocol: Document 08/18/18 12:14 [facility] (Rec: 08/18/18 12:23 [facility] [email or web address]) OT Summary Assessment and Plan Potential Rehabilitation Potential Good Summary OT Impairments Pain Balance Coordination Progress Towards Goals Progressing Toward Goals Goals Days to Meet Goals 1 Discharge Recommendations OT Discharge Recommendations Home with Assistance Home Health
[2018-08-18 12:24] VITALS: BP 113/54; PULSE 84; RESP 14; TEMP 36.5; O2SAT 96
--- NOTE | 2018-08-18 12:25 | PM.PN.1 ---
Subjective Date Patient Seen: 08/18/18 Time Patient Seen: 11:50 Interval history: Pt seen in follow up for psych consult. Today, the the patient reports feeling much better and more stable. He denies current suicidal or homicidal, ideation, intent, or plan. He expresses regret for his actions that resulted in his hospitalization last week. He has received a number of visitors from his local [facility] who have been extremely and committed to helping him maintain his recovery. We discussed extensively the way ahead for the patient to continue in the process of recovery from his substance use as well as address underlying depressive symptoms that may have contributed to his current situation. He is able to outline a reasonable plan to maintain sobriety and obtain ongoing support. A number of people in the patient's life have emerged to help him and he is hopeful and encouraged by this. Exam Vital Signs (past 8 hours): - 08/18/18 04:40 08/18/18 07:30 08/18/18 12:24 Temperature 97.7 F 97.7 F Pulse Rate 97 H 84 84 Respiratory Rate 14 16 14 Blood Pressure 114/65 113/54 L Pulse Oximetry 94 96 96 Oxygen Delivery Method Room Air Oxygen Flow Rate 0 Narrative Exam Narrative: MENTAL STATUS EXAM: - Appearance: The patient is a well-developed and well-nourished male dressed in casual clothing and appears adequately groomed. - Grooming: neatly groomed, casually dressed - Behavior: Calm, cooperative, good eye contact, no psychomotor agitation or slowing, no tremor or involuntary movements observed - Gait: Normal - Speech: Normal rate, volume, and jens - Mood: ?Much better now? - Affect: Congruent with content, normal range and reactivity - Thought Process: Linear, logical, and goal-directed - Thought Content: Denies suicidal ideation, denies homicidal ideation, intent or plan; and there was no evidence of a formal thought or perceptual disturbance. - Attention: Attentive to interview - Orientation: Oriented to person, place, time, and circumstance - Memory: Intact for interview, not formally tested - Insight: Fair - Judgment: Fair Objective Labs Result Diagrams: 08/12/18 08:42 08/12/18 08:42 Assessment & Plan Assessment & Plan narrative: This is a 68-year-old man with a long history of substance use, both alcohol and hard drugs. He presents to the ED having been found unresponsive following a welfare check by police. He had taken an overdose of his medications in a suicide attempt in the context of legal, social, and financial stressors. The patient is not currently suicidal and expresses profound regret at making this attempt. I had concerns that this might have have been a flight into health, but the patient has received a number of visitors over the course of the weekend, his ex-, who is still a friend, has emerged to help provide support, and he reports improved insight and understanding of his situation. Given the paucity of psychiatric beds and the patient's current mental status, he is not holdable and would likely not benefit at this point significantly with further inpatient psychiatric treatment. He can be treated appropriately and adequately as an outpatient. DIAGNOSES: Major depression Alcohol dependence in early remission Opioid dependence RECOMMENDATIONS: 1. The patient is not suicidal at this time and risk of imminent harm to self is low. 2. The patient is able to express an appropriate safety plan if he should become suicidal or encounter a crisis in the near future. He understands that he has options to contact friends, contact his ex-, or call crisis line or 911, or proceed to the nearest emergency room should he become suicidal. 3. Recommend that patient be referred back to his primary care provider for ongoing pain medication management and that he be followed more closely. 4. Recommend discharge medciation: Sertraline 50 mg take 1/2 table PO QDay. 5. I will follow up with the patient for further treatment of his depression. He is scheduled for an appointment with me on FridayAugust 21. 6. I discussed the plan with the patient and he agrees to proceed with this course of action. Time Spent With Patient Time with patient: 25 - 35 minutes Quality VTE Deep Vein Thrombosis/Pulmonary Embolism Present on Admission: Yes
--- NOTE | 2018-08-18 13:55 | P.DS_ITS ---
History of Present Illness Date Patient Seen: 08/18/18 Chief complaint: decreased LOC Narrative: Mr. Teddy Rico is a 68-year-old male with history significant for hypertension, hyperlipidemia, diabetes, prostate cancer, spinal stenosis with neuropathy, asthma, long-term opiate use and prior suicide attempt who presents to the ER via EMS with altered mental status. The patient was found seated in a chair altered after not being seen or heard from for days and will defer check was requested. It was reported through the emergency department that a note was found leaving although his belongings to his ex-. During encounter the patient admits to an estimated 30 Soma and 12 buprenorphine tablets. He does admit to attempted suicide and is aware of his current surroundings though it history is stools scattered with impaired recall. The patient remains confused with difficultty recalling information or events. It is estimated that the overdose occurred 3 days ago. The patient also had sources history of alcohol approximately 1 qt per day and denies ingestion of other substances including Tylenol or aspirin. By history the patient has had a prior suicidal attempt by carbon monoxide poisoning. At present he complains of total body aches but denies headaches or dizziness and has no fevers or chills. He denies chest pain or pain on deep inspiration and no palpitations. Denies shortness of breath or cough. Has no abdominal pain nausea vomiting. Upon arrival in the ER the patient has low-grade fever 99.2, tachycardic at 1:18 a.m., hypertensive 157/87, respiratory rate of 22 with a room air SaO2 oxygen saturation of 88%. patient had a chest x-ray taken which show some right basilar patchy infiltrates consistent with atelectasis and had CT head which showed no acute intracranial processes. The patient's tox screen is only positive for cannabis. On laboratory studies has a mildly elevated white count at 12.3 with a hemoglobin of 15.2 and hematocrit of 45.2 and platelets of 247. his electrolytes are within normal limits and has a elevated BUN at 29 and a creatinine of 0.8 with a BUN creatinine ratio 36.3:1. He has a nonfasting glucose of 207. His CK is elevated at 349 and a CK-MB at 1.61. His troponin is negative at less than 0.012 and lactate is negative at 1.3. his coagulations are within normal limits. He did have ultrasound of the left upper extremity which identifies a DVT. The patient is admitted to the hospital for suicidal ideation, overdose, acute respiratory failure, DVT left arm and severe dehydration. Discharge Providers Date of admission: 08/10/18 17:41 Discharge Date: 08/18/18 Consults: 08/10/18 16:53 Consult to Assistant Boys Track Coach Stat Comment: 08/10/18 19:28 Consult to Dietitian, Adult Routine Comment: lay in recliner for 3 days before found Reason For Exam: high risk. suicide attempt 08/10/18 20:06 Consult to Discharge Planning Routine Comment: 08/10/18 20:07 Consult to Occupational Therapy Evaluate & Treat Comment: Overdose, generalized pain from inmobility days Physician Instructions: Evaluate and treat Consult to Physical Therapy Evaluate & Treat Comment: Overdose, generalized pain from inmobility days Physician Instructions: Evaluate and Treat 08/10/18 20:28 Consult to Respiratory Therapy Evaluate & Treat Comment: Hx Asthma, no inhalers, hypoxia Physician Instructions: Evaluate and treat 08/10/18 23:38 Consult to Assistant Boys Track Coach Routine Comment: 08/14/18 11:04 Consult to Physician Routine Comment: Consulting Provider: Ky Smith Reason for consultation: depression Has provider been notified: Yes Discharge provider: Eliz Love MD Summary Discharge Diagnosis: 1. Intentional overdose 2. Suicidal ideation, present on admission, now resolved 3. Depression 4. Chronic pain 5. Substance abuse 6. Type 2 diabetes 7. Alcohol dependence 8. Acute hypoxic respiratory failure present on admission now resolved 9. Chronic back 10. 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 Acute dehydration present on his admission now resolved 13. Hyponatremia 14. Hypertension Hospital Course: Patient is a 68-year-old male who was brought into the hospital after a polysubstance overdose. He was found to be acutely delirious. He was depressed and suicidal. He was seen by Dr. Smith from Psychiatry. Dr. de dios issue we recommended that the patient go directly to inpatient psychiatric care. The patient has chronic back pain for which she takes opioids. He also has a history of ETOH abuse. He was found in the hospital to have a left anterior cubital vein thrombophlebitis which was felt to be chronic. No intervention was obtained on that. Patient is also type 2 diabetic. He was treated with insulin for this per he also was continued on his bupropion or fen for his chronic pain. As he continued to have numbness and tingling he was started on Neurontin. This seemed to help somewhat as well. The patient was unable to be placed at a psych unit given his difficulty with ambulation and concerns regarding self-care. He continued to be evaluated managed by PT and OT. He was able to finally dress himself. He was able to mobilize with a walker. He was transition to a 4 prong cane. Patient was re-evaluated again by Dr. Smith. After a 7 day hospitalization he was felt to be medically stable to be discharged. He will go home on his usual Zoloft dose to 25 mg at night. The patient is no longer suicidal. He is no longer felt to be at harm to himself. He was deemed appropriate for discharge home for outpatient psychiatric evaluation and follow up with his PCP provider. Exam Vital Signs (past 8 hours): - 08/18/18 07:30 08/18/18 12:24 Temperature 97.7 F 97.7 F Pulse Rate 84 84 Respiratory Rate 16 14 Blood Pressure 114/65 113/54 L Pulse Oximetry 96 96 Oxygen Delivery Method Room Air Oxygen Flow Rate 0 Narrative Exam Narrative: Elderly gentleman resting in bed in no obvious distress Lungs: Clear to auscultation Cardiac exam: Regular rate and rhythm normal S1-S2 Abdomen: Soft nontender nondistended Extremities: No edema Objective Labs Result Diagrams: 08/12/18 08:42 08/12/18 08:42 Discharge Plan Discharge Plan Patient Disposition: Home Discharge Med Rec/Prescriptions Prescriptions: New buprenorphine HCl 8 mg tablet, sublingual 8 mg SL BID Qty: 14 RF: 0 metoprolol tartrate 25 mg Tablet 25 mg PO BID 30 Days Qty: 60 RF: 0 sertraline 25 mg Tablet 25 mg PO BEDTIME 30 Days RF: 0 gabapentin [Neurontin] 300 mg Capsule 300 mg PO TID 30 Days Qty: 90 RF: 0 Continued buprenorphine HCl 8 mg tablet, sublingual 8 mg sublingual BID RF: 0 Follow up/Referrals: Ky Smith MD [Physician] - Provider Discharge Instructions Diet: Regular Activity: aS tolerated Discharge Data Attending Provider: Kristie Gonzalez Admit Date/Time: 08/10/18 17:41 Quality VTE Deep Vein Thrombosis/Pulmonary Embolism Present on Admission: Yes
--- NOTE | 2018-08-18 15:25 | PC.NURSE ---
pt discharged to home with follow up appts scheduled for both PSYCH AND PCP- all questions answered to his satisfaction
--- NOTE | 2018-08-18 16:46 | CM.SWNOTE ---
DCP/continued: Reviewed chart. Spoke with Dr. Love this AM she reports that patient is medically stable to discharge today. Placed call to Dr. Smith at [facility] requesting that he see today and assist with discharge disposition. Dr. Smith saw patient and it was determined that patient stable to d/c home. Patient has outpatient mental health appointment with Dr. Smith on Friday08-21-18 at 1:30pm. Met with patient and provided him with additional mental health resources for crisis, senior guide, and outpatient counseling. Patient appreciative. Patient cleared by PT/OT to discharge home today. Patient denies any suicidal ideation. P: Home today. Outpatient mental health appointment made. Dr. Smith cleared patient to return home. MADELYN Chiu
== END 2018-08-18 15:40 | disposition home or self-care (01) | DRG 917 ==
LOC: ED 17:20 → ICU 17:42
PROVIDERS: Nurse Practitioner Adult Health; Admitting Provider Internal Medicine; Emergency Provider Emergency Medicine; Visit Provider Internal Medicine
DX: T40.4X2A Poisoning by other synthetic narcotics, intentional self-harm, initial encounter (principal); J96.01 Acute respiratory failure with hypoxia; G92 Toxic encephalopathy; I82.622 Acute embolism and thrombosis of deep veins of left upper extremity; I82.722 Chronic embolism and thrombosis of deep veins of left upper extremity; F10.230 Alcohol dependence with withdrawal, uncomplicated; F11.20 Opioid dependence, uncomplicated; E87.1 Hypo-osmolality and hyponatremia; T42.8X2A Poisoning by antiparkinsonism drugs and other central muscle-tone depressants, intentional self-harm, initial encounter; R41.82 Altered mental status, unspecified; R40.2352 Coma scale, best motor response, localizes pain, at arrival to emergency department; R40.2142 Coma scale, eyes open, spontaneous, at arrival to emergency department; R40.2242 Coma scale, best verbal response, confused conversation, at arrival to emergency department; E86.0 Dehydration; E11.65 Type 2 diabetes mellitus with hyperglycemia; F32.9 Major depressive disorder, single episode, unspecified; G89.29 Other chronic pain
CPT/HCPCS: 36415; 36591; 51701; 70450; 71045; 80048; 80053; 80305; 80320; 80329; 81001; 82550; 82553; 82962; 83036; 83605; 83735; 84145; 84484; 85025; 85610; 85730; 87797; 93005; 93970; 93971; 94640; 94760; 96361; 96365; 97110; 97112; 97116; 97162; 97166; 97530; 97535; 99285; 99291; 99406; C9113; G0480; J1650; J2060; J7613